=== PATIENT | female | born 1940 | race Caucasian/White ===

== ENCOUNTER 2016-12-27 17:21 | Inpatient (IN) | payer MEDICARE, OTHER ==
[2016-12-27] MEDS ORDERED: SODIUM CHLORIDE 0.9% 1000ML 500 ML IVS ONE (17:43)
[2016-12-27] MEDS ORDERED: HYDROmorphone HCL INJ 2 MG/ML VIAL IV ONE (17:43)
[2016-12-27] MEDS ORDERED: ONDANSETRON ODT 8 MG TAB SL ONE (17:43)
[2016-12-27] MEDS ORDERED: MAGNESIUM SULFATE PREMIX 2GM 2 GM in PREMIX BAG 1 BAG IVPB ONE (18:20)
--- NOTE | 2016-12-27 18:37 | RAD ---
EXAM DESCRIPTION: Abdomen Series CLINICAL HISTORY: abd pain COMPARISON: Chest radiograph June 11, 2010 FINDINGS: Frontal view of the chest and supine and upright images of the abdomen were submitted. Cardiac silhouette is within normal limits. Mediastinal contour is unchanged. There is no focal parenchymal or pleural disease. Aorta is tortuous. There is atherosclerosis. There is no free air in the abdomen. There is no evidence of bowel obstruction. IMPRESSION: No acute abnormalities. Electronically signed by: Estuardo Vasques MD 12/27/2016 6:36 PM CDT
[2016-12-27] MEDS ORDERED: MAGNESIUM SULFATE PREMIX 2GM 50 ML IVPB ONE (19:00)
[2016-12-27] MEDS ORDERED: PIPERACILLIN/TAZOBACTAM 3.375 GM in SODIUM CHLORIDE 0.9% 100ML 100 ML IVPB ONE (19:19)
[2016-12-27] MEDS ORDERED: PIPERACILLIN/TAZOBACTAM 3.375 GM VIAL IVPB ONE (19:49)
[2016-12-27] MEDS ORDERED: SODIUM CHLORIDE 0.9% 100ML 100 ML IVPB ONE (19:49)
--- NOTE | 2016-12-27 19:57 | CT ---
EXAM: Abdomen/Pelvis w/Contrast CLINICAL INDICATION: 76-year-old female with RIGHT lower quadrant pain and leukocytosis. COMPARISON: None. EXAMINATION: CT of the abdomen and pelvis was performed following intravenous administration of contrast. Oral contrast was not administered. Multiplanar reformatted images were provided. This exam was performed according to our departmental dose optimization program which includes use of automated exposure control, adjustment of the mA and/or kV according to patient size and/or use of iterative reconstruction technique. FINDINGS: Examination findings are limited by dense air artifact and extensive motion through the mid abdomen. Chest: Evaluation through the lung bases reveals no focal opacity, pleural effusion or pneumothorax. Heart size is within normal limits. No pericardial effusion. Abdomen and pelvis: The liver, gallbladder, pancreas, spleen, bilateral kidneys and bilateral adrenal glands are within normal limits. Large calculus present within the gallbladder compatible with cholelithiasis. The vessels reveal atherosclerotic calcification otherwise patent. Aortic infrarenal aneurysm measuring 3.6 cm, (series 2, image 41). No abdominopelvic lymph nodes are noted to be pathologically enlarged by CT measurement criteria. The bowel is within normal limits with fecal debris present throughout the large bowel. There is no abnormal bowel wall thickness or bowel dilation. No free air. No free abdominopelvic fluid collections. The appendix is identified arising medially from the cecum, coursing cephalad with tip terminating at the level of the gallbladder fossa extensive stranding surrounds the appendix compatible with phlegmon without clearly defined organizing fluid collection to suggest abscess. Several foci of air lucency are present at the level of the appendix tip raising the concern for small focal perforation, however this area is poorly visualized secondary to severe motion artifact. The osseous structures reveal degenerative change. IMPRESSION: 1. Findings compatible with acute appendicitis with extensive surrounding phlegmon as detailed above. No free intra-abdominal air, however air lucency is identified at the level of the tip of the appendix, poorly visualized secondary to severe motion artifact through this region for which focal perforation is suspected. 2. Large calculus within the gallbladder compatible with cholelithiasis. 3. Infrarenal aortic aneurysm measuring 3.6 cm. Best practice guidelines recommend follow-up evaluation every year. AAA Size: Follow-up Recommendation : 2.6-2.9 cm Every 5 years 3.0-3.4 cm Every 3 years 3.5-3.9 cm Every 1 year 4.0-4.4 cm Every 1 year, vascular consultation recommended 4.5-5.4 cm Every 6 months, vascular consultation recommended >5.5 cm Vascular surgery consultation recommended 1. J Vasc Surg. 2008;50(4 Suppl):S2-49 2. For aortas with maximum diameter of 2.6-2.9 cm meeting the criteria for AAA (>50% of proximal normal segment) Electronically signed by: Yudith Soriano MD 12/27/2016 7:55 PM CDT Workstation: [id number]
--- NOTE | 2016-12-27 20:59 | ED.PDOC ---
History of Present Illness - General Chief Complaint: Abdominal Pain Stated Complaint: abdominal pain Time Seen by Provider: 12/27/16 17:23 Source: patient Exam Limitations: no limitations - History of Present Illness Initial Comments: the patient is a 76-year-old female presenting to the emergency room secondary to symptoms primarily of abdominal pain. She has had some nausea and some mild diarrhea. The pain has increased which is the primary reason she is here. She is uncertain if she has had fevers. She reports she still has her appendix and her gallbladder. No syncope or near syncope. She does have COPD and does wear her oxygen at night. She does work at a job and does not wear the oxygen down. Her lungs have been doing good for her. She does not know of any significant cardiac history. Timing/Duration: other - 3 days Severity: moderate Improving Factors: immobilization Worsening Factors: eating, movement Associated Symptoms: loss of appetite, malaise, nausea/vomiting Allergies/Adverse Reactions: Allergies Codeine Allergy (Unknown, Verified 12/27/16 17:47) Home Medications: Ambulatory Orders Albuterol Sulfate Nebs [Proventil Nebs] 2.5 mg INH QID 02/29/16 Centrum Silver 1 ea PO DAILY 02/29/16 Dulera 100-5 Mcg/Act 2 puff INH BID 02/29/16 Furosemide Tab [Lasix Tab] 1 dose PO BID 02/29/16 Potassium Chloride [Micro-K] 10 meq PO BID 02/29/16 Proair Hfa 1 - 2 puff INH .Q4-6H 02/29/16 Tiotropium Southmayd Monohydrate [Spiriva Handihaler] 1 puff INH DAILY 02/29/16 Ciprofloxacin [Cipro] 500 mg PO BID #14 tab 03/03/16 predniSONE [Prednisone] 10 mg PO QAM #20 tab 03/03/16 Review of Systems - Review of Systems Constitutional: States: malaise EENTM: States: no symptoms reported Respiratory: States: no symptoms reported Cardiology: States: no symptoms reported Gastrointestinal/Abdominal: States: abdominal pain, diarrhea, nausea, vomiting Genitourinary: States: no symptoms reported Musculoskeletal: States: no symptoms reported Skin: States: no symptoms reported Neurological: States: no symptoms reported Endocrine: States: excessive sweating All other Systems: No Change from Baseline Past Medical History (General) - Patient Medical History Hx Seizures: No Hx Stroke: No Hx Asthma: No Hx of COPD: Yes Hx Congestive Heart Failure: No Hx Pacemaker: No Hx Hypertension: No Hx Diabetes: No Hx MRSA: No Surgical History: other - Vaccination History Hx Influenza Vaccination: Yes Hx Pneumococcal Vaccination: Yes - Social History Hx Tobacco Use: No Hx Alcohol Use: No Hx Substance Use: No Hx Substance Use Treatment: No Hx Physical Abuse: No Hx Emotional Abuse: No - Activities of Daily Living Hospice Agency (if applicable):: None - Female History Patient is a Female of Child Bearing Age (10 -59 yrs old): No Patient : No Family Medical History - Family History Mother Living Status: Age at (years of age): 86 Cause of : old age Hx Family Asthma: No Hx Family Congestive Heart Failure: No Hx Family Hypertension: Yes Hx Family Stroke: No Hx Cardiac Disease: No Hx Family Diabetes: No Hx Family Cancer: Yes - Breast cancer Father Living Status: Age at (years of age): 80 Cause of : Cancer Hx Family Asthma: No Hx Family Congestive Heart Failure: No Hx Family Hypertension: No Hx Family Stroke: No Hx Cardiac Disease: No Hx Family Diabetes: No Hx Family Cancer: Yes - Lung Cancer Physical Exam - Physical Exam General Appearance: Alert, No apparent distress Eye Exam: bilateral normal Ears, Nose, Throat: hearing grossly normal, normal ENT inspection, normal pharynx Neck: full range of motion, supple Respiratory: chest non-tender, no respiratory distress, no accessory muscle use , other - the patient does have some chronic dry rales and some decreased air movement chronically. No wheezes. No respiratory distress. Cardiovascular/Chest: normal peripheral pulses, regular rate, rhythm, no edema Peripheral Pulses: radial,right: 2+, radial,left: 2+, dorsalis pedis,right: 2+, dorsalis pedis,left: 2+, posterior tibialis,right: 2+, posterior tibialis,left: 2+ Gastrointestinal/Abdominal: other - the patient hasmild diffuse discomfort palpation and significant right-sided abdominal pain to palpation. There does appear to be somesignificant guarding present. The patient is obese. 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 The patient did receive a dose of Dilaudid for the pain and is somewhat drowsy from it currently. She appears to be at baseline from her standpoint of her COPD. Her EKG appears to be baseline as well with a long-standing right bundle branch block. Chest x- ray appears reassuring. The patient has received a dose of IV Zosyn. Cultures have been performed. General surgery and internal medicine have been contacted. The patient is to be nothing by mouth. - Results/Orders Results/Orders: Laboratory Last Values WBC 15.5 K/mm3 (4.8-10.8) H 12/27/16 17:40 RBC 4.73 M/mm3 (4.20-5.40) 12/27/16 17:40 Hgb 13.9 gm/dL (12.0-16.0) 12/27/16 17:40 Hct 42.1 % (36.0-47.0) 12/27/16 17:40 MCV 89.0 fl (81.0-99.0) 12/27/16 17:40 MCH 29.5 pg (27.0-31.0) 12/27/16 17:40 MCHC 33.1 g/dL (33.0-37.0) 12/27/16 17:40 RDW 13.1 % (11.5-14.5) 12/27/16 17:40 Plt Count 231 K/mm3 (130-400) 12/27/16 17:40 MPV 8.3 fl (7.40-10.4) 12/27/16 17:40 Absolute Neuts (auto) 13.40 K/uL (1.8-6.8) H 12/27/16 17:40 Absolute Lymphs (auto) 1.20 K/uL (1.0-3.4) 12/27/16 17:40 Absolute Monos (auto) 0.90 K/uL (0.2-0.8) H 12/27/16 17:40 Absolute Eos (auto) 0.00 K/uL (0.0-0.4) 12/27/16 17:40 Absolute Basos (auto) 0.00 K/uL (0.0-0.1) 12/27/16 17:40 Neutrophils % 86.6 % (42.0-78.0) H 12/27/16 17:40 Lymphocytes % 7.7 % (20.0-50.0) L 12/27/16 17:40 Monocytes % 5.5 % (2.0-9.0) 12/27/16 17:40 Eosinophils % 0.1 % (1.0-5.0) L 12/27/16 17:40 Basophils % 0.1 % (0.0-2.0) 12/27/16 17:40 PT 12.7 SECONDS (9.4-12.5) H 12/27/16 17:40 INR 1.130 12/27/16 17:40 PTT (SP) 30.4 SECONDS (25.1-36.5) 12/27/16 17:40 Sodium 136 mmol/L (135-145) 12/27/16 17:40 Potassium 3.6 mmol/L (3.6-5.0) 12/27/16 17:40 Chloride 97 mmol/L (101-111) L 12/27/16 17:40 Carbon Dioxide 30 mmol/L (21-31) 12/27/16 17:40 Anion Gap 12.6 (12-18) 12/27/16 17:40 BUN 12 mg/dL (7-18) 12/27/16 17:40 Creatinine 0.89 mg/dL (0.6-1.3) 12/27/16 17:40 BUN/Creatinine Ratio 13.5 (10-20) 12/27/16 17:40 Random Glucose 125 mg/dL (70-105) H 12/27/16 17:40 Serum Osmolality 273.2 mOsm/L (275-295) L 12/27/16 17:40 Calcium 9.2 mg/dL (8.4-10.2) 12/27/16 17:40 Magnesium 1.7 mg/dL (1.8-2.5) L 12/27/16 17:40 Total Bilirubin 1.7 mg/dL (0.2-1.0) H 12/27/16 17:40 AST 14 IU/L (10-42) 12/27/16 17:40 ALT 13 IU/L (10-60) 12/27/16 17:40 Alkaline Phosphatase 71 IU/L (42-121) 12/27/16 17:40 Creatine Kinase 45 IU/L (26-140) 12/27/16 17:40 CK-MB (CK-2) 1.7 ng/mL (0.0-4.4) 12/27/16 17:40 CK-MB (CK-2) % Not Reportable 12/27/16:40 Troponin I < 0.02 ng/mL (0.01-0.05) 12/27/16 17:40 B-Natriuretic Peptide 168.0 pg/ml (0-100) H 12/27/16 17:40 Serum Total Protein 7.1 gm/dL (6.4-8.2) 12/27/16 17:40 Albumin 3.8 g/dl (3.2-5.5) 12/27/16 17:40 Globulin 3.3 gm/dL (2.3-3.5) 12/27/16 17:40 Albumin/Globulin Ratio 1.2 (1.1-1.9) 12/27/16 17:40 Amylase 37 U/L (28-100) 12/27/16 17:40 Lipase 31 U/L (22-51) 12/27/16 17:40 bowel gas pattern is normal on the abdominal x-ray. No definite free air. Chest x-ray appears to be at patient's baseline. No evidence of fluid overload or pneumonia. Chronic changes of COPD are noted. CT scan of abdomen and pelvis shows a significant gallstone in the gallbladder additionally the patient does haveappendicitis with a surrounding phlegmon but no definite abscess. There could possibly be a small focal perforation at the tip of the gallbladder. Departure - Departure Clinical Impression: Appendicitis, acute, with peritonitis Disposition: Admit Patient Referrals: Shyam Leroy MD [Primary Care Provider] - 1-2 Weeks Home Medications: Ambulatory Orders Albuterol Sulfate Nebs [Proventil Nebs] 2.5 mg INH QID 02/29/16 Centrum Silver 1 ea PO DAILY 02/29/16 Dulera 100-5 Mcg/Act 2 puff INH BID 02/29/16 Furosemide Tab [Lasix Tab] 1 dose PO BID 02/29/16 Potassium Chloride [Micro-K] 10 meq PO BID 02/29/16 Proair Hfa 1 - 2 puff INH .Q4-6H 02/29/16 Tiotropium [place]mayd Monohydrate [Spiriva Handihaler] 1 puff INH DAILY 02/29/16 Ciprofloxacin [Cipro] 500 mg PO BID #14 tab 03/03/16 predniSONE [Prednisone] 10 mg PO QAM #20 tab 03/03/16 Decision To Admit - Decistion To Admit Decision to Admit Reason: Medical Nature Decision to Admit Date: 12/27/16 Decision to Admit Time: 21:03
[2016-12-27] MEDS ORDERED: ATROPINE SULFATE 0.4 MG/ML 1ML VIAL IV ONE (21:00)
[2016-12-27] MEDS ORDERED: PROPOFOL 200 MG/20 ML VIAL IV ONE (21:00)
[2016-12-27] MEDS ORDERED: NEOSTIGMINE METHYLSULFATE 1 MG/ML ML IV ONE (21:00)
[2016-12-27] MEDS ORDERED: metroNIDAZOLE IV PREMIX 500MG 500 MG in PREMIX BAG 1 BAG IVPB ONE (21:09)
[2016-12-27] MEDS ORDERED: BUPIVACAINE 0.25% W/EPI 50 ML VIAL INJ ONE (21:40)
[2016-12-27] MEDS ORDERED: ROCURONIUM BROMIDE 10 MG/ML VIAL ONE (21:55)
[2016-12-27] MEDS ORDERED: fentaNYL CITRATE INJ 50 MCG/ML AMP ONE (21:55)
[2016-12-27] MEDS ORDERED: LACTATED RINGERS 1,000 ML ONE (21:55)
--- NOTE | 2016-12-27 22:06 | CONS ---
HISTORY OF PRESENT ILLNESS: The patient is a 76 year-old female who was seen in the Emergency Room with at least a 24 hour history of abdominal pain which has moved to the right side with anorexia. She has not had an episode of like-illness in the past. No history of hepatitis, jaundice or fatty food intolerance. No dysuria, no productive cough. Her last bowel movement was yesterday and was small but within normal limits. PAST MEDICAL HISTORY: 1. . 2. Chronic obstructive pulmonary disease. 3. Abnormal EKG which is unchanged from previous. CURRENT MEDICATIONS: Listed in the nursing record. ALLERGIES: CODEINE. FAMILY HISTORY: Noncontributory. SOCIAL HISTORY: The patient is , quit smoking, does not drink, does not use drugs. She is retired. REVIEW OF SYSTEMS: Negative except as in the history of present illness. PHYSICAL EXAMINATION: VITAL SIGNS: Afebrile, normotensive. GENERAL: The patient is awake, alert when awakened. She is in mild distress. HEENT: Sclera nonicteric. Mucous membranes are moist. NECK: Without adenopathy. CHEST: She has equal breath sounds bilaterally without wheezing but they are distant, HEART: Regular rhythm. ABDOMEN: Soft. There is tenderness in the right mid abdomen and right lower quadrant. Bowel sounds are positive but decreased. PELVIC/RECTAL: Examinations deferred. EXTREMITIES: Without cyanosis, clubbing, or edema. EKG reveals a right bundle branch block which has been compared to a previous one and within normal limits. LABORATORY: Her creatinine is 0.89, potassium 3.6, bilirubin 1.7. Other liver functions within normal limits. CK is 45, MB 1.9. Troponin is 0.02. BNP is 168. Amylase and lipase both within normal limits. PT is slightly prolonged at 12.7 with INR of 1.13. White count 15,000, hemoglobin 13.3. She has 86% neutrophils and 231,000 platelets. Urine is not back at this time. Chest x-ray is clear. IMPRESSION: 1. Right lower quadrant abdominal pain, leukocytosis, abnormal CT scan consistent with appendicitis with at least micro perforation. 2. History of chronic obstructive pulmonary disease. 3. Mildly elevated BNP. The risks, benefits, and alternatives to laparoscopy and possible open appendectomy and indicated procedures are discussed with the patient and her family. She has had questions answered. She wishes to proceed. She has been given IV Zosyn and Mefoxin and will proceed with surgery when the surgery crew is available. #[id number] [facility]
--- NOTE | 2016-12-27 22:20 | HP ---
SUPERVISING PHYSICIAN: Phillip Tracy M.D. CHIEF COMPLAINT: Right lower quadrant abdominal pain. HISTORY OF PRESENT ILLNESS: Ms. Bnonie Saeed is a 76 year-old female patient that presented to the Emergency Room today complaining of abdominal pain. She noted she had had some mild nausea and some mild diarrhea. Apparently the pain had started on Wednesday and worsened throughout the day. She denied any fevers. She noted that the pain was primarily down in her lower right quadrant. Laboratory studies in the Emergency Department showed she had a leukocytosis of 15,500 with a left shift. Coagulation studies showed she just had a slightly elevated PT of 12.7, PTT was normal. Chemistries showed electrolytes to be normal with magnesium 1.7. Bilirubin was slightly elevated at 1.7. Troponins showed to be less than 0.02. BNP was 168. Radiographic studies were completed that included initially an abdominal x-ray and per radiology interpretation there were no acute abnormalities noted. This was followed-up with an abdominal/pelvic CT with contrast and per radiology interpretation there were findings compatible with acute appendicitis with extensive surrounding phlegmon but no intraabdominal air was identified. There was a air lucency identified at the level of the tip of the appendix which was poorly visualized secondary to motion artifact through this region for which focal perforation is suspected. Also of note was a large calculous within the gallbladder compatible with cholelithiasis. Also on CT was noted she had infrarenal aortic aneurysm measuring 3.[address] George was consulted in the Emergency Department given the CT findings and leukocytosis, and the patient's symptomology. Dr. George requested the patient be admitted and cleared for surgery for concerns of acute appendicitis with a possible perforation. The patient was seen in the Emergency Department and at time of examination was stable. She has a history of chronic obstructive pulmonary disease, only wears oxygen at night. No other significant medical history was noted. Her previous admission to the hospital at [place] was in February of 2016 for an exacerbation of chronic obstructive pulmonary disease. The patient is now going to be admitted to the Medical/Surgical floor for acute appendicitis with surgery planned for tonight. The patient was in stable condition at time of examination in the E. R. PAST MEDICAL HISTORY: 1. Chronic obstructive pulmonary disease. 2. Congestive heart failure, however last echocardiogram noted to be 2004 showed she had an ejection fraction of 75% with a normal systolic function. 3. Past tobacco abuse currently using E-cigarettes. PAST SURGICAL HISTORY: 1. section. 2. Bilateral tubal ligation. HOME MEDICATIONS: Please refer to the electronic medical records for an updated list of medications listed at time of admission that have been verified and review of the patient's home medications from the clinic show she is on: 1. Albuterol nebulizer as directed p.r.n. 2. Dulera 100 mcg per 5 mcg oral inhaled 2 puffs twice daily. 3. Spiriva handheld inhaler 18 mcg 1 capsule daily. 4. ProAir inhaler 1 to 2 puffs as needed every 4 to 6 hours. 5. Lasix 40 mg twice daily. 6. Potassium chloride 10 mEq extended release twice daily. 7. Centrum Silver daily. ALLERGIES: CODEINE. FAMILY HISTORY: The patient's mother is from Alzheimer's dementia at age 85. Also had a history of chronic obstructive pulmonary disease. Father at age 70 from lung cancer. She has no siblings. SOCIAL HISTORY: The patient has smoked approximately 1-1/2 to 2 packs per day approximately 45 years having quit tobacco 6 years previously. She currently does use an E-cigarette. She denies any history of alcohol abuse. 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 She has been 6 times and is currently and lives in [place]. REVIEW OF SYSTEMS: Denies any fever or chills but notes she has had some general malaise. No unintentional weight gain or weight loss. HEENT: Denies any change in vision. She is [id number], wears hearing aids. She denies any nasal congestion. CARDIOVASCULAR: Denies any chest pains or palpitations, syncopal episodes or near syncopal episodes. RESPIRATORY: Denies any cough, shortness of breath, wheezing. GASTROINTESTINAL: As noted in the History of Present Illness, right lower abdominal pain with some mentioned diarrhea, nausea and vomiting. GENITOURINARY: Denies any dysuria, hematuria or increased frequency or other urinary symptoms. NEUROLOGIC: Denies any headaches, numbness or any paresthesias. PHYSICAL EXAMINATION: VITAL SIGNS: Temperature 99.6, pulse 96, initial blood pressure 158/110. She was showing saturations 96% on room air. After pain medications, her blood pressure improved to 127/61, respirations were at 18. She is satting 91 to 93 on nasal cannula at rest with 3 liters. Admission weight 80.7 kg. GENERAL: On examination in the Emergency Department, the patient is alert and in no apparent distress, quite comfortable after pain medication administration. HEENT: Tympanic membranes are clear bilaterally. Oropharynx was pink and moist without any lesions. NECK: Supple, non-tender with full range of motion. No jugular venous distention noted. CHEST: Lungs were clear to auscultation, just slightly diminished towards the bases. No wheezing, rhonchi or rales were noted. CARDIOVASCULAR: Heart was regular rate and rhythm without appreciable murmurs, gallops, or rubs. ABDOMEN: Diffusely tender on palpation more noted on the right side with some guarding. Bowel sounds were hypoactive. EXTREMITIES: No clubbing, cyanosis or edema. NEUROLOGIC: She was alert and oriented times three. Cranial nerves II-XII are grossly intact. Facial features are symmetrical. Extraocular movements are within normal limits. There is no noted nystagmus. There was no noted neurologic sensory or motor deficits. LABORATORY: White count on admission was 15.5, hemoglobin 13.9, hematocrit 42.1. She did have a differential showing a left shift. Coagulation studies showed a slightly elevated PT of 12.7, INR was 1.13, PTT 30.4. Chemistries showed normal electrolytes with potassium 3.6, BUN 12, creatinine 0.89, glucose 125, calcium 9.2, magnesium was slightly low at 1.5. Bilirubin was slightly elevated at 1.7. All other liver functions showed to be within normal limits. Cardiac enzymes showed normal troponin at less than 0.02. BNP was slightly elevated at 168. RADIOLOGY: Normal x-ray in the Emergency Department and per radiology interpretation there was no abnormalities identified. This was followed-up with an abdominal CT pelvis with contrast and per radiology interpretation there was note of findings compatible with acute appendicitis with extensive surrounding phlegmon with concerns for a focal perforation. Also of note was a large calculous within the gallbladder compatible with cholelithiasis as well as infrarenal aortic aneurysm measuring 3.6 cm. ASSESSMENT: 1. Acute appendicitis with leukocytosis as well as noted on CT findings with concerns for focal perforation. 2. Leukocytosis secondary to number 1. 3. Chronic obstructive pulmonary disease without any signs or symptoms of exacerbation. 4. History of tobacco abuse with currently using E-cigarettes. 5. Hypertension by history. 6. Obesity with a body mass index of 32.6. PLAN: The patient is going to be admitted in anticipation of surgery for acute appendicitis. Dr. George has been consulted and seen the patient in the Emergency Room. The patient was started on antibiotics in the Emergency Room that included Flagyl and Zosyn. She was also given 2 grams of magnesium and pain medicine with Dilaudid. Will plan to follow the patient during recovery phase along with Dr. George and see the patient postoperatively. The patient is O2 dependent at night only. Will utilize O2 as needed postoperatively and anticipate length of stay to be at least 2 to 3 days, possibly longer depending on clinical progression. She certainly will need to be on antibiotics for concerns for the perforation and ongoing leukocytosis. Will the patient medically along with Dr. George. Until discharge, continue to monitor and treat appropriately. #[id number] [facility]
[2016-12-28] MEDS ORDERED: ONDANSETRON INJ 4 MG/2 ML VIAL IV PRN (00:58)
[2016-12-28] MEDS ORDERED: PANTOPRAZOLE SODIUM IV 40 MG VIAL IV SCH (01:00)
[2016-12-28] MEDS ORDERED: LEVALBUTEROL NEBS 1.25 MG/3 ML VIAL NEB ONE (01:05)
[2016-12-28] MEDS ORDERED: ALBUTEROL SULFATE 2.5 MG/3 ML VIAL NEB PRN (01:08)
[2016-12-28] MEDS ORDERED: KCL 20MEQ/0.45% NS 1,000 ML IVS PRN ×2 (01:15→08:18)
--- NOTE | 2016-12-28 01:19 | PCM.CORE ---
Physician DVT/VTE - Nurse DVT Assessment & Total Each Risk Factor Represents 3 Points: Age over 75 years, Medical PT with Hx of OR, CHF, Severe infection/sepsis Each Risk Factor Represents 2 Points: Major Surgery >45 minutes Each Risk Factor Represents 1 Point: Hx of smoking past year DVT Assessment Score: 9 - 5 or more Very High Risk Treatments: Early Ambulation *, Sequential Compression Device Pharmacological: Enoxaparin 40mg SQ Daily
[2016-12-28] MEDS ORDERED: PIPERACILLIN/TAZOBACTAM 3.375 GM in SODIUM CHLORIDE 0.9% 100ML 100 ML IVPB SCH (01:30)
[2016-12-28] MEDS: HYDROmorphone HCL INJ 2 MG/ML VIAL IV PRN ×4 (03:00→22:49)
[2016-12-28] MEDS ORDERED: PIPERACILLIN/TAZOBACTAM 3.375 GM VIAL IVPB ONE (03:23)
[2016-12-28] MEDS ORDERED: SODIUM CHLORIDE 0.9% 100ML 100 ML IVPB ONE (03:24)
[2016-12-28] MEDS ORDERED: KCL 20MEQ/0.45% NS 1,000 ML IVS ONE (03:30)
[2016-12-28] MEDS: PIPERACILLIN/TAZOBACTAM 3.375 GM in SODIUM CHLORIDE 0.9% 100ML 100 ML IVPB SCH ×2 (03:39→19:32)
[2016-12-28] MEDS ORDERED: metroNIDAZOLE IV PREMIX 500MG 100 ML IVPB ONE ×3 (04:31→20:11)
[2016-12-28] MEDS: metroNIDAZOLE IV PREMIX 500MG 500 MG in PREMIX BAG 1 BAG IVPB SCH ×3 (04:36→20:17)
--- NOTE | 2016-12-28 09:09 | OP ---
DATE OF PROCEDURE: 12/28/16 PREOPERATIVE DIAGNOSIS: 1. Elevated white blood cell count. 2. Right lower quadrant abdominal pain. 3. Abnormal CT scan suspicious for appendicitis. POSTOPERATIVE DIAGNOSIS: 1. Elevated white blood cell count. 2. Right lower quadrant abdominal pain. 3. Abnormal CT scan suspicious for appendicitis. 4. Acute gangrenous perforated retrocecal appendix. PROCEDURE: 1. Laparoscopy, then open appendectomy. SURGEON: Des George MD. CERTIFIER: None. ANESTHESIA: General endotracheal anesthesia and local infiltration of 0.25% Marcaine with epinephrine. INDICATION: The patient is a 76-year-old female with somewhere between a 24+ hour history of abdominal pain, anorexia, no temperature, no nausea, vomiting, no previous episodes of like illness. She was found to have a white count of 15 ,[address] can revealed an appendix that seemed to be retrocecal with a question of perforation of the tip. She as brought to the Surgical Suite for laparoscopy and appendectomy after the risks, benefits and alternatives to the procedure were discussed and accepted and the patient had received IV Zosyn and Flagyl in the Emergency Room. FINDINGS: The base of the appendix was viable and it was transected using the stapler. The remaining of the appendix was essentially , retrocecal and there was no obvious abscess cavity. PROCEDURE: After adequate general endotracheal anesthesia was obtained, a Desai catheter was placed. The abdomen was prepped and draped in the usual sterile manner. At this time, a surgical time-out was taken. The supraumbilical area was infiltrated with local anesthesia. A vertical incision was made above the umbilicus, first with infiltration of anesthesia and then with a sharp knife. Dissection was carried down through the skin and subcutaneous tissue to the midline fascia. Traction sutures were placed on either side of the midline. A small incision was made in the midline fascia. The peritoneum was opened bluntly. Aden trocar was introduced under direct vision into the abdominal cavity and fixed in place with a 20 mL balloon. CO2 was then insufflated until a pressure of 12 mmHg was reached and the abdomen was tympanitic in all four quadrants. When this was done, the laparoscope was introduced and the abdomen was inspected with the previously noted findings. The patient was then placed in the Trendelenburg position. A suprapubic port was placed under direct vision in the usual manner in the usual manner. The right lower quadrant was explored and the base of the appendix was identified. At this point, the left lower quadrant port was placed under direct vision. The base of appendix was identified, elevated and attempts to dissect the remaining appendix with blunt dissection using the dissectors was not done. Therefore, the base of the appendix was divided using the Endo-MARK with a vascular staple after the mesoappendix at the base was divided using blunt dissection. Again, the base of the appendix was grasped and attempts to dissect the remaining appendix free bluntly with the graspers was unable to be done. A portion of the appendix, approximately 1.5 cm of the most proximal appendix came off and was removed through the left lower quadrant port side. At this point, it was decided to open. The left lower quadrant port fascia was closed with interrupted 0 Vicryl simple sutures placed using the Endoclose divide and the supraumbilical port fascia was closed with a single figure-of- eight suture of 0 Vicryl. When these were tightened and tied, the suprapubic port was left in place. After the new instruments were pulled and counted, a vertical incision was made just below the umbilicus in the right lower quadrant. Dissection was carried down through the skin to the fascia using blunt dissection and electrocautery. The fascia was score and a muscle splitting incision was made. When this was done, the next layer was likewise divided. Finally, the peritoneum was divided with sharp scissors and the peritoneum was divided with fingers and retractors were placed. The right lower quadrant was explored. The base of the appendix was inspected and it was in fine shape. Attempts to bring up the ileocecal portion of the colon and ileum were unsuccessful due to the size of the incision , so eventually the incision was lengthened medially including dividing approximately the lateral third of the rectus muscle. When this was done, as noted, the ileum and cecum were brought into the surgical field. Blunt dissection along the medial aspect of the right colon mesentery eventually identified the appendix. It was dissected free. First, there was purulent drainage which was aspirated and irrigated and finally the appendix was elevated and removed using electrocautery. The specimen was sent for pathologic evaluation. This area was then irrigated copiously with saline as was the right lower quadrant. A 10 mm flat ALENA drain was introduced into this area and brought out through the suprapubic port and sutured in place with a 3- 0 Nylon ligature. We then irrigated the wound through the incision and aspirated with the ALENA drain and placed to grenade drainage. The right lower quadrant incision was closed in layers with the peritoneum closed with a running 3-0 Vicryl and the muscle closed with a running 0 Prolene suture that was run from medially and laterally and tied centrally. When this was done and we irrigated each layer coming out, the Patricio's fascia was then loosely approximated with interrupted 2-0 Vicryl sutures. The skin edges were loosely approximated on all incisions with skin stapler. Sterile dressings were applied. An abdominal binder was applied and the patient was awakened and taken to the Recovery Room in stable condition. Estimated blood loss was 150 to 200 mL. All sponge, needle and instrument counts were correct. #[id number] [facility]
[2016-12-28] MEDS: IPRATROPIUM/ALBUTEROL 3 ML VIAL NEB SCH ×4 (09:45→20:10)
[2016-12-28] MEDS ORDERED: SODIUM CHLORIDE 0.9% 50ML 0 ML ONE (10:32)
[2016-12-28] MEDS ORDERED: PIPERACILLIN/TAZOBACTAM 2.25 GM VIAL IVPB ONE ×4 (10:32→21:40)
--- NOTE | 2016-12-28 10:40 | RAD ---
EXAM DESCRIPTION: Chest,1 View CLINICAL HISTORY: Postoperative COMPARISON: February 29, 2016 IMPRESSION: Single portable upright frontal view of the chest. Cardiomediastinal silhouette and pulmonary vascularity are within normal limits. Linear band of opacities in the left upper lobe and bilateral lung bases are likely due to atelectasis versus chronic interstitial changes. Infiltrates cannot be entirely excluded. Bilateral costophrenic angles are sharp. No pneumothorax. Included upper abdomen shows no evidence of free air under the diaphragm. Electronically signed by: Dickson Ni MD 12/28/2016 10:38 AM CDT
[2016-12-28] MEDS: PIPERACILLIN/TAZOBACTAM 2.25 GM in SODIUM CHLORIDE 0.9% 50ML 50 ML IVPB SCH ×4 (10:47→22:15)
[2016-12-28] MEDS ORDERED: FUROSEMIDE INJ 20 MG/2 ML VIAL IV ONE (11:01)
[2016-12-28] MEDS ORDERED: FUROSEMIDE INJ 20 MG/2 ML VIAL ONE (11:05)
[2016-12-28] MEDS: ENOXAPARIN SODIUM 40 MG/0.4 ML SYG SUBCU SCH (13:22)
--- NOTE | 2016-12-28 13:24 | PN ---
DATE: 12/28/16 SUBJECTIVE: The patient is noticeably confused. She is now immediate postoperative appendix removal performed earlier this morning by Dr. George, general surgery. She tolerated the procedure quite well. Her blood pressure was a little bit low later in the morning and she had decreased urine output which we hope will be remedied by some fluid supplementation. The patient was subjected dehydrated before the procedure and will require some fluid supplementation to help stabilize the situation. She otherwise lives at home with her . Her mouth is very dry and she will be given some ice chips and some ora hygiene. The family is attentive in helping to assist and watch over her during this recovery time. OBJECTIVE: VITAL SIGNS: Blood pressure earlier this morning was 89/55. Pulse 92. Blood pressure immediately after surgery was down to 73/45. She is requiring some BiPAP and has now advanced to a mask and her oxygenation has stabilized. She has had decreased urine output since surgery, but we trust that this will be assisted by some fluid supplementation currently being received by the patient. LUNGS: Clear. HEART: Regular. RADIOLOGY: Chest x-ray shows some bibasilar chronic interstitial changes. LABORATORY: White count 20,600 with 92% neutrophils noted after surgery. Hemoglobin stable at 13.5. Osmolality is up to 275 while BUN has gone from 12 to 19, creatinine 0.89 up to 1.64. Potassium 4.1. Calcium 8.3. MICROBIOLOGY: Blood cultures are pending. ASSESSMENT: 1. Acute abdominal pain. 2. Immediately postoperative day 0 open appendectomy requiring extensive lavage and exploration for appendiceal removal. 3. Chronic obstructive pulmonary disease. 4. History of congestive heart failure with last echocardiogram in 2004 with an ejection fraction of 75% with undetermined etiology. 5. Chronic tobacco use, now using E-cigarettes or vapor. 6. History of hypotension postoperatively. 7. Relative oliguria with close followup with fluid supplementation. 8. Mild obesity with body mass index of 32. 9. Leukocytosis, probably secondary to the acute appendicitis. PLAN: We will continue with fluid supplementation after initial bolus of 1 liter as well as Lasix 10 mg IV. Reevaluate urine output after about 4 to 5 hours and consider additional bolus if IV fluids if required. The patient is examined by Dr. George as well. Drainage through the bulb drains continuing. Continue with ice chips and close observation of urine output and vital signs. [facility][id number] [facility]
[2016-12-28] MEDS ORDERED: SODIUM CHLORIDE 0.9% 1000ML 1,000 ML IVS ONE (15:56)
[2016-12-28] MEDS ORDERED: SODIUM CHLORIDE 0.9% 50ML 50 ML ONE ×3 (17:22→21:40)
[2016-12-28] MEDS ORDERED: SODIUM CHLORIDE 0.9% 500ML 500 ML IVS ONE (21:20)
[2016-12-28] MEDS ORDERED: SODIUM CHLORIDE 0.9% 1000ML 1,000 ML IVS PRN (22:28)
[2016-12-29] MEDS: HYDROmorphone HCL INJ 2 MG/ML VIAL IV PRN ×3 (02:26→20:47)
[2016-12-29] MEDS ORDERED: metroNIDAZOLE IV PREMIX 500MG 100 ML IVPB ONE ×3 (04:01→19:32)
[2016-12-29] MEDS: metroNIDAZOLE IV PREMIX 500MG 500 MG in PREMIX BAG 1 BAG IVPB SCH ×3 (04:09→19:43)
[2016-12-29] MEDS ORDERED: PANTOPRAZOLE SODIUM IV 40 MG VIAL ONE (04:48)
[2016-12-29] MEDS ORDERED: PIPERACILLIN/TAZOBACTAM 2.25 GM VIAL IVPB ONE ×3 (04:49→19:40)
[2016-12-29] MEDS ORDERED: SODIUM CHLORIDE 0.9% 50ML 50 ML ONE ×2 (04:49→19:40)
[2016-12-29] MEDS ORDERED: SODIUM CHLORIDE 0.9% 250ML 250 ML IVS ONE (05:11)
--- NOTE | 2016-12-29 05:45 | RAD ---
Procedure: XR CHEST 1 VIEW Exam Date: 12/29/2016 Ordering Provider: NOAH VELÁZQUEZ MD Clinical Indication: Decreased Output, Hypotension Comparison: 12/28/2016 Findings: Cardiomediastinal silhouette is stable. Focal lung consolidation: Left perihilar and basilar atelectasis. Right lung remains relatively clear. Pleural effusion: None Pneumothorax: None Acute bony or soft tissue abnormality: None Impression: 1. No acute abnormalities in the chest. Electronically signed by: Luis Antonio Santiago MD 12/29/2016 5:43 AM CDT
[2016-12-29] MEDS: PIPERACILLIN/TAZOBACTAM 2.25 GM in SODIUM CHLORIDE 0.9% 50ML 50 ML IVPB SCH ×3 (06:04→23:03)
[2016-12-29] MEDS: PANTOPRAZOLE SODIUM IV 40 MG VIAL IV SCH (06:05)
[2016-12-29] MEDS: IPRATROPIUM/ALBUTEROL 3 ML VIAL NEB SCH ×4 (08:50→20:58)
[2016-12-29] MEDS: ENOXAPARIN SODIUM 40 MG/0.4 ML SYG SUBCU SCH (11:01)
--- NOTE | 2016-12-29 13:16 | PN ---
DATE: 12/29/16 SUBJECTIVE: The patient is still having a significant oliguric episode since her significant hypotension was noted approximately 3 AM yesterday morning postoperatively. Her abdomen is still distended, but she is getting fairly good drainage out of the bulb drainage site with milking. Urine output is still significantly down. Significant fluid resuscitation was carried yesterday and last evening and will be now modified to a maintenance level. The patient is still just getting some ice chips until improved bowel tone activity is noted under Dr. George's supervision. OBJECTIVE: VITAL SIGNS: Afebrile. Pulse 110. Blood pressure up to 115/62. Pulse oximetry 9 5% on 40% FIO2 utilizing BiPAP. Her chest x-ray this morning was remarkably clear with no acute abnormalities noted. LUNGS: Diminished breath sounds. HEART: Regular. ABDOMEN: Diminished bowel tone activity. GENITOURINARY: Last evening, the patient was describing significant urgency to pass urine, possibly from her Desai catheter being present. Ultrasound machine was brought from the Emergency Room to more fully evaluate for the possibility of a malfunctioning Desai, but no significant urine in the bladder was evident on ultrasound examination last evening. Further efforts to ensure proper placement of the Desai were also performed. Overnight, she did have approximately 87 mL of urine output, which is still quite a little bit less than the significant amount of fluid given to her. Approximately 10 pounds of weight gain was evident, which again could be related to the fluid resuscitation in an effort to reverse the significant hypotensive episode with subsequent renal injury noted. LABORATORY: White count 17,900 with 88% neutrophils, down from 20,600 yesterday with 92% neutrophils of which 25 were bands. This was gone as far as the bandemia today. Chemistries did show potassium 4.7 with potassium containing IVs being stopped last evening. BUN up to 34, creatinine up to 3.32 in light of the acute kidney injury. Glucose 139, calcium 8.1, serum osmolality 285, bilirubin 1.5, AST 45, beta natriuretic peptide 289 up from 168 showing the presence of the added fluid challenge. Albumin 3.1. Urinalysis does some show some hematuria and a small amount of pyuria. Blood cultures are negative to date. ASSESSMENT: 1. Postoperative day #1 open appendectomy requiring extensive lavage and exploration for appendiceal removal, performed by Dr. George yesterday morning. 2. History of acute abdominal pain, probably secondary to the acute appendicitis with path specimen pending. 3. Acute renal injury with apparent acute tubular necrosis initiated by a significant hypotensive "shock" episode yesterday morning, now showing improvement after fluid supplementation has been given and treatment continues. 4. History of congestive heart failure with last echocardiogram in 2004 with an ejection fraction of 75% with congestive heart failure of undetermined etiology. 5. Chronic tobacco use, now using E-cigarettes or vapor. 6. History of hypotension postoperatively. 7. Relative oliguria with close followup of fluid supplementation and efforts to avoid overhydration. 8. Moderate obesity with a body mass index of 32. 9. Leukocytosis, probably secondary to the acute appendicitis. PLAN: We have communicated with Dr. Holcomb last evening and again today and suggestions of continuing with maintenance fluid at this time and await for spontaneous diuresis. If diuresis does not become evident, then will continue to talk with Dr. Holcomb and may require more intensive and personal intervention by the radio program director on duty. Reevaluation on an ongoing basis. Anticipate spontaneous gentle diuresis and off-loading of some of the fluid and third spacing of the abdomen later today or tonight with reevaluation on a continuous basis. #[id number] [facility]
[2016-12-29] MEDS: DEX 5% W/NACL 0.45% 1000ML 1,000 ML IVS PRN (14:38)
[2016-12-29] MEDS ORDERED: SODIUM CHL 0.9% 100ML MINI-BAG 0 ML IVPB ONE (14:46)
[2016-12-29] MEDS ORDERED: SODIUM CHL 0.9% 50ML MIN-BAG+ 50 ML IVPB ONE (14:47)
--- NOTE | 2016-12-29 15:24 | US ---
Sonogram of the bladder. Indication: bladder pain,post-op appe.Demo for nurses Comparison: CT December 27, 2016. IMPRESSION: Examination technically limited due to intra-abdominal drainage catheter related to recent appendectomy. The bladder is collapsed despite instillation of 50 mL of saline via the Desai catheter. The bladder is not well characterized and the examination is essentially nondiagnostic. Electronically signed by: Scooter Luu MD 12/29/2016 3:23 PM CDT
[2016-12-30] MEDS: HYDROmorphone HCL INJ 2 MG/ML VIAL IV PRN ×3 (00:42→19:54)
[2016-12-30] MEDS ORDERED: PIPERACILLIN/TAZOBACTAM 2.25 GM VIAL IVPB ONE (03:00)
[2016-12-30] MEDS ORDERED: metroNIDAZOLE IV PREMIX 500MG 100 ML IVPB ONE (03:00)
[2016-12-30] MEDS ORDERED: SODIUM CHLORIDE 0.9% 50ML 50 ML ONE (03:00)
[2016-12-30] MEDS: metroNIDAZOLE IV PREMIX 500MG 500 MG in PREMIX BAG 1 BAG IVPB SCH (03:07)
[2016-12-30] MEDS: PANTOPRAZOLE SODIUM IV 40 MG VIAL IV SCH (05:42)
[2016-12-30] MEDS: PIPERACILLIN/TAZOBACTAM 2.25 GM in SODIUM CHLORIDE 0.9% 50ML 50 ML IVPB SCH (05:55)
[2016-12-30] MEDS: DEX 5% W/NACL 0.45% 1000ML 1,000 ML IVS PRN ×2 (07:56→21:27)
[2016-12-30] MEDS: IPRATROPIUM/ALBUTEROL 3 ML VIAL NEB SCH ×4 (08:08→20:42)
[2016-12-30] MEDS: ENOXAPARIN SODIUM 40 MG/0.4 ML SYG SUBCU SCH (08:10)
[2016-12-30] MEDS ORDERED: MEROPENEM 500 MG VIAL IVPB ONE (09:40)
[2016-12-30] MEDS ORDERED: SODIUM CHL 0.9% 50ML MIN-BAG+ 50 ML IVPB ONE (09:40)
[2016-12-30] MEDS: MEROPENEM 500 MG in SODIUM CHL 0.9% 50ML MIN-BAG+ 50 ML IVPB SCH (09:46)
--- NOTE | 2016-12-30 16:56 | RAD ---
EXAM DESCRIPTION: Chest,1 View CLINICAL HISTORY: 76 years Female possible aspiration COMPARISON: 12/29/2016 at 5:11 AM. FINDINGS: Cardiac size and mediastinal contour are unchanged. There is an area of linear atelectasis extending into the left upper lobe which is stable. Small amount of basilar atelectasis on the left which appears unchanged. No area of alveolar infiltrate is noted. No definite pleural fluid. IMPRESSION: Atelectasis in the left upper lobe and left lung base which appears unchanged Electronically signed by: Elizabeth Rubio 12/30/2016 4:54 PM CDT
--- NOTE | 2016-12-30 20:45 | PN ---
DATE: 12/30/16 SUPERVISING PHYSICIAN: Hal Shannon M.D. SUBJECTIVE: The patient continues to be on BiPAP. She is showing a little bit of improvement in her urine output. She remains afebrile. OBJECTIVE: VITAL SIGNS: T max 98.7, pulse 93, blood pressure 133/76, respirations 21, satting 92% on a Venti mask at rest. I's and O's show 1406 balance with 1560 in, 154 out. Weight is 94.0 kg. CHEST: Lung sounds are diminished throughout. HEART: Regular rate and rhythm. ABDOMEN: Abdominal binder in place. Bowel sounds are very distant and diminished. LABORATORY: White count is down to 13.2, hemoglobin 11.5, hematocrit 35.0, platelet count 211,000. Differential continues to show a left shift. Chemistries show normal electrolytes with potassium 4.7, BUN 49, creatinine is up to 4.41, glucose 141. Liver functions show to be within normal limits. Albumin was 2.9. MICROBIOLOGY: Four sets of blood cultures remain negative, two sets at 48 hours and two sets at 24 hours. RADIOLOGY: Chest x-ray today per radiology interpretation single view shows atelectasis in the left upper lobe and lung base with appearance unchanged. ASSESSMENT: 1. Postoperative day #1 open appendectomy requiring extensive lavage and exploration for appendiceal removal, performed by Dr. George. 2. History of acute abdominal pain secondary to the acute appendicitis with path specimen pending. 3. Acute renal injury with apparent acute tubular necrosis initiated by a significant hypotensive "shock" state the previous 24 hours showing some improvement with improving urinary output but worsening renal function on laboratory studies. 4. History of congestive heart failure with last echocardiogram in 2004 with an ejection fraction of 75% with congestive heart failure of undetermined etiology. 5. Chronic tobacco use, now using E-cigarettes or vapor. 6. History of hypotension postoperatively showing to be stable now with IV fluids. 7. Relative oliguria with close followup of fluid supplementation. 8. Moderate obesity with a body mass index of 32. 9. Leukocytosis, probably secondary to the acute appendicitis showing improvement. PLAN: I did discuss the patient's case with Dr. Holcomb who agrees with current plan of care at this point in regards to change in her antibiotic therapy from Flagyl and Zosyn to Meropenem in efforts to improve renal function. Also discussed the case with Dr. Blackburn in regards to antibiotic therapy and renal function. She recommended changing the patient's antibitic to Meropenem and renal dosing as indicated by creatinine clearance of less than 10 to 500 mg every 24 hours with close monitoring as Meropenem should cover anaerobes that Flagyl is covering as well as Zosyn. Will continue to monitor output closely and adjust fluids as needed. Will plan to repeat laboratory studies in the morning to further evaluate kidney function and closely monitor for any third spacing that may develop. Until discharge, will continue to monitor the patient closely and treat appropriately. #[id number] [facility]
[2016-12-31] MEDS: HYDROmorphone HCL INJ 2 MG/ML VIAL IV PRN ×5 (02:14→23:55)
[2016-12-31] MEDS: PANTOPRAZOLE SODIUM IV 40 MG VIAL IV SCH (05:44)
[2016-12-31] MEDS: IPRATROPIUM/ALBUTEROL 3 ML VIAL NEB SCH ×4 (07:55→20:15)
[2016-12-31] MEDS ORDERED: SODIUM CHL 0.9% 50ML MIN-BAG+ 50 ML IVPB ONE (08:24)
[2016-12-31] MEDS ORDERED: MEROPENEM 500 MG VIAL IVPB ONE (08:25)
[2016-12-31] MEDS ORDERED: MAGNESIUM HYDROXIDE 30 ML UD PO ONE (08:34)
[2016-12-31] MEDS: MEROPENEM 500 MG in SODIUM CHL 0.9% 50ML MIN-BAG+ 50 ML IVPB SCH (08:40)
[2016-12-31] MEDS ORDERED: ALBUMIN 25 GM in PREMIX BOTTLE 1 BOTTLE IVPB ONE (09:00)
[2016-12-31] MEDS: ENOXAPARIN SODIUM 40 MG/0.4 ML SYG SUBCU SCH (09:25)
[2016-12-31] MEDS: DEX 5% W/NACL 0.45% 1000ML 1,000 ML IVS PRN ×2 (09:27→22:18)
[2016-12-31] MEDS: BUMETANIDE 0.25 MG/ML VIAL IV SCH ×2 (10:55→13:01)
[2017-01-01] MEDS: HYDROmorphone HCL INJ 2 MG/ML VIAL IV PRN ×3 (02:34→20:18)
[2017-01-01] MEDS: PANTOPRAZOLE SODIUM IV 40 MG VIAL IV SCH (06:03)
--- NOTE | 2017-01-01 07:54 | PN ---
SUPERVISING PHYSICIAN: Hal Shannon MD DATE: 12/31/16 SUBJECTIVE: The patient continues to show improvement being able to stay on nasal cannula. Her mentation is much better today. She has had good pain control. She has had one episode of nausea yesterday while they were rolling her and none since. She does remain afebrile. Her urine output has improved from the last 24 hours. OBJECTIVE: VITAL SIGNS: T-max 98.9. Pulse 115. Blood pressure 130/76. Respirations 22. O2 saturation 93% on 3 liters nasal cannula. I&Os show 1800 in, 473 out, which is improved from the previous day of 154, for a total balance of 1327. Weight 94.7 kg. CHEST: Lungs clear to auscultation, diminished towards the bases. HEART: Regular rate and rhythm. ABDOMEN: Abdominal binding remains in place. Bowel sounds are distant, but present. EXTREMITIES: No cyanosis, clubbing or edema. NEUROLOGIC: Alert to herself and easily reoriented to surroundings. LABORATORY: White count continues to show improvement and is down to 11.2 with hemoglobin 10.9, hematocrit 33.9, platelet count 216,000. Differential continues to show a left shift, but improving. Chemistries show normal electrolytes with potassium 4.3, BUN up to 62, creatinine up a little bit to 4.69. Glucose has been 127 to 140s. Liver functions within normal limits. Albumin down to 2.8. RADIOLOGY: Chest x-ray per radiologic interpretation, single view, shows atelectasis in the left upper lobe and left lung base which appears to be unchanged. ASSESSMENT: 1. Postoperative day #2 open appendectomy requiring extensive lavage and exploration for appendiceal removal, performed by Dr. George. 2. History of acute abdominal pain secondary to the acute appendicitis with path specimen pending with the patient showing demonstrating some degree of sepsis, but showing improvement after IV fluids, but continues to show decreasing renal function. 3. Acute renal injury with apparent acute tubular necrosis initiated by a significant hypotensive "shock" event secondary to sepsis in the past 48 hours, showing continual improvement with improved urine output as well as stabilization of her renal function on laboratory studies, continuing to closely monitor. 4. History of congestive heart failure with last echocardiogram in 2004 with an ejection fraction of 75% with etiology undetermined. 5. Chronic tobacco use, history of using E-cigarettes or vapor. 6. History of hypotension postoperatively showing to be stable now with IV fluids. 7. Moderate obesity with a body mass index of 32. 8. Leukocytosis, showing improvement daily, secondary to #1. 9. Hypoalbuminemia secondary to nutritional status from chronic illness and exacerbated by recent surgical procedures for open appendectomy with the patient having demonstrating a systemic inflammatory response and worsening renal function. PLAN: Once again discussed the patient's progress with Dr. George and Dr. Holcomb. Dr. Holcomb recommends that it appears she is starting to have some good diuresis and hopefully leveling off on her creatinine and recommended that we give her 25 grams of albumin to be followed by 2 mg of Bumex. We will continue with antibiotic therapy with meropenem. Dr. George is managing diet and pain control. We will utilize BiPAP as needed and continue to work to improve lung function with aggressive pulmonary hygiene. The patient is to be up today to a bedside chair and is being started on a clear liquid diet. We will plan to repeat CBC and BMP in the morning. Until then, we will continue to monitor the patient closely and treat appropriately. #[id number] [facility]
[2017-01-01] MEDS: IPRATROPIUM/ALBUTEROL 3 ML VIAL NEB SCH ×4 (08:20→20:56)
[2017-01-01] MEDS ORDERED: MEROPENEM 500 MG VIAL IVPB ONE ×2 (08:27→20:04)
[2017-01-01] MEDS ORDERED: SODIUM CHL 0.9% 50ML MIN-BAG+ 50 ML IVPB ONE ×2 (08:27→20:04)
[2017-01-01] MEDS: BIFIDOBACTERIUM INFANTIS 4 MG CAP PO SCH (09:05)
[2017-01-01] MEDS: BUMETANIDE 0.25 MG/ML VIAL IV SCH (09:05)
[2017-01-01] MEDS: ENOXAPARIN SODIUM 30 MG/0.3 ML SYG SUBCU SCH (09:05)
[2017-01-01] MEDS: MEROPENEM 500 MG in SODIUM CHL 0.9% 50ML MIN-BAG+ 50 ML IVPB SCH ×2 (09:06→20:21)
[2017-01-01] MEDS: DEX 5% W/NACL 0.45% 1000ML 1,000 ML IVS PRN ×2 (10:23→21:00)
[2017-01-01] MEDS ORDERED: ALBUMIN 25 GM in PREMIX BOTTLE 1 BOTTLE IVPB ONE (10:55)
[2017-01-01] MEDS ORDERED: BUMETANIDE TAB 2 MG TAB PO SCH (11:00)
[2017-01-01] MEDS: HYDROcodone 5MG/APAP 325MG 1 EA TAB PO PRN (15:18)
--- NOTE | 2017-01-01 22:02 | PN ---
DATE: 01/01/17 SUPERVISING PHYSICIAN: Hal Shannon M.D. SUBJECTIVE: The patient continues to show good progression. She is much more alert today. She has had some episodes of confusion but is easily reoriented. She is requiring BiPAP intermittently and is showing good output and remains afebrile. OBJECTIVE: VITAL SIGNS: T max 99.2, pulse 89, blood pressure 140/79, respirations 15, satting 96% on nasal cannula at 6 liters. I's and O's show a positive balance of 847 with 2720 in, 1873 out. Weight is 94.7 kg which is fairly stable. She has not yet had a bowel movement. LUNGS: Clear to auscultation, just slightly diminished towards the bases lateral aspect. HEART : Regular rate and rhythm. ABDOMEN: Abdominal binder in place. Distal bowel sounds. Still remains tender and sore on palpation and especially with any movement. EXTREMITIES: No clubbing, cyanosis or edema. NEUROLOGIC: She is alert to herself and location. Shows no neurological status change at this point. LABORATORY: White count now has normalized to 9.3, hemoglobin is stabilized at 11.7, hematocrit 36.0, platelet count 237,000. Differential remains with a left shift that is showing improvement. Chemistries show normal electrolytes today with potassium 4.3, BUN 66, creatinine is down to 3.73. Serum osmolality was up to 296, calcium is normal at 8.5. MICROBIOLOGY: She had 4 sets of blood cultures that remained negative after 4 days, for 2 and 3 for the other set. RADIOLOGY: There is no additional radiographic studies today. ASSESSMENT: 1. Postoperative day #3 for open appendectomy requiring extensive lavage and exploration for appendiceal removal, performed by Dr. George. 2. History of acute abdominal pain secondary to the acute appendicitis with the patient demonstrating some degree of sepsis initially and showing improvement after IV fluids with some decreased renal function, although showing improvement on renal function now with the patient showing good urine output. 3. Acute renal injury with apparent acute tubular necrosis initiated by a significant hypotensive "shock" event secondary to sepsis postoperatively showing improvement now in her urine output as well as stabilization of her renal function which is now improving after albumin and Bumex. 4. History of congestive heart failure with last echocardiogram in 2004 showing an ejection fraction of 75% with etiology undetermined. 5. Chronic tobacco use both with E-cigarettes and vapors. 6. History of hypotension postoperatively showing to be stable now with IV fluids. 7. Moderate obesity with a body mass index of 32. 8. Leukocytosis secondary to sepsis process now normalized after continued IV antibiotics to include Meropenem. 9. Hypoalbuminemia secondary to nutritional status from chronic illness and exacerbated by recent surgical procedures for open appendectomy and systemic inflammatory response with worsening renal function now showing improvement with albumin replacement. PLAN: Will continue to follow the patient along with Dr. George. I did discuss will Dr. Holcomb the patient's renal function this morning. He noted that we will do 1 more day of albumin and Bumex as previous and monitor closely. Will continue with antibiotic therapy with Meropenem and as her renal function increases today will increase to 500 every 12 hours, and continue to monitor that closely and dose appropriately. Will continue with aggressive pulmonary hygiene and BiPAP as needed. Will plan to repeat her laboratory studies in the morning. She continues on a clear liquid diet today as well as receiving some Milk of Magnesia. I have ordered a PT consultation in efforts to help get the patient to a bedside chair in efforts to hopefully get the patient ambulating. Will anticipate discharge hopefully within the next 2 to 3 days depending on clinical response to treatment. Until then, will continue to monitor and treat appropriately. #[id number] [facility]
[2017-01-02] MEDS: HYDROcodone 5MG/APAP 325MG 1 EA TAB PO PRN (03:07)
[2017-01-02] MEDS: HYDROmorphone HCL INJ 2 MG/ML VIAL IV PRN ×3 (04:14→11:25)
[2017-01-02] MEDS: PANTOPRAZOLE SODIUM IV 40 MG VIAL IV SCH (05:58)
[2017-01-02] MEDS: IV SET AND CAP CHANGE INJ INJ SCH (08:00)
[2017-01-02] MEDS: IPRATROPIUM/ALBUTEROL 3 ML VIAL NEB SCH ×4 (08:09→21:25)
[2017-01-02] MEDS ORDERED: SODIUM CHL 0.9% 50ML MIN-BAG+ 50 ML IVPB ONE ×2 (09:52→20:29)
[2017-01-02] MEDS ORDERED: MEROPENEM 500 MG VIAL IVPB ONE ×2 (09:53→20:29)
[2017-01-02] MEDS: MEROPENEM 500 MG in SODIUM CHL 0.9% 50ML MIN-BAG+ 50 ML IVPB SCH ×2 (09:57→21:15)
[2017-01-02] MEDS: ENOXAPARIN SODIUM 30 MG/0.3 ML SYG SUBCU SCH (09:57)
[2017-01-02] MEDS: BIFIDOBACTERIUM INFANTIS 4 MG CAP PO SCH (09:59)
[2017-01-02] MEDS ORDERED: MAGNESIUM HYDROXIDE 30 ML UD PO ONE (11:48)
[2017-01-02] MEDS: DEX 5% W/NACL 0.45% 1000ML 1,000 ML IVS PRN (19:53)
[2017-01-03] MEDS: HYDROcodone 5MG/APAP 325MG 1 EA TAB PO PRN ×4 (04:53→22:50)
[2017-01-03] MEDS: PANTOPRAZOLE SODIUM IV 40 MG VIAL IV SCH (05:43)
[2017-01-03] MEDS: SODIUM CHLORIDE 0.9% (FLUSH) 10 ML SYG IV PRN ×2 (05:43→23:36)
[2017-01-03] MEDS ORDERED: SODIUM CHL 0.9% 50ML MIN-BAG+ 50 ML IVPB ONE ×2 (08:25→19:49)
[2017-01-03] MEDS ORDERED: MEROPENEM 500 MG VIAL IVPB ONE ×2 (08:26→19:50)
[2017-01-03] MEDS: IPRATROPIUM/ALBUTEROL 3 ML VIAL NEB SCH ×4 (08:32→20:32)
[2017-01-03] MEDS: BIFIDOBACTERIUM INFANTIS 4 MG CAP PO SCH (08:34)
[2017-01-03] MEDS: MEROPENEM 500 MG in SODIUM CHL 0.9% 50ML MIN-BAG+ 50 ML IVPB SCH ×2 (08:34→21:16)
[2017-01-03] MEDS: ENOXAPARIN SODIUM 30 MG/0.3 ML SYG SUBCU SCH (08:35)
--- NOTE | 2017-01-03 10:28 | PN ---
DATE: 01-02-17 SUPERVISING PHYSICIAN: Hal Shannon MD SUBJECTIVE: The patient continues to progress slowly. Her labs are looking better today. She is making good urine. She remains afebrile but is having episodes of confusion and refuses to go to a bedside chair because of the pain. OBJECTIVE: VITAL SIGNS: Temperature 98.1, pulse 76, blood pressure 138/76, respirations 18 , saturation 95% on 4 liters nasal cannula at rest. I&O show negative balance of 85 with 3090 out and 3957 out. She is het to have a bowel movement. Weight 97.8 kg. CHEST: Lungs are fairly clear, just diminished towards the bilateral bases. Patient's assessment is difficult at this time as she refuses to take deep breaths. HEART: Regular rate and rhythm. ABDOMEN: Obese with abdominal binder in place with distant bowel tones. She remains tender on palpation, especially over the surgical site. EXTREMITIES: No cyanosis, clubbing, or edema. NEUROLOGIC: She is alert to herself and will answer questions but is not oriented completely to date and time but can recall why she is in the hospital and knows her family members. LABORATORY: White count down to 9.0, hemoglobin stabilized at 12.0 and hematocrit 36.3 with platelet count of 240,000, differential shows to be without a left shift today. Chemistries show normal electrolytes, potassium 3.6 , BUN down to 58, creatinine down to 2.26, glucose 125, BNP 270. Liver functions showed to be within normal limits. Albumin up to 3.1. Path report review shows microscopic examination shows sections of the appendix with marked acute neutrophilic inflammation involving the full thickness of the wall extending to the second serosal surface. There were no focal areas of tissue necrosis, no infectious organisms were identified within the appendiceal lumen. Please see the reports for full details. MICROBIOLOGY: All blood cultures to date show no growth. RADIOLOGY: No additional radiographic studies were completed today. Will order a single view chest in the morning. ASSESSMENT: 1. Postoperative day #4 for open appendectomy requiring extensive lavage and exploration for appendiceal removal, performed by Dr. George. 2. History of acute abdominal pain secondary to the acute appendicitis with the patient demonstrating some degree of sepsis initially and showing improvement after IV fluids and some decreased renal function initially although showing improvement now after aggressive management with fluids, albumin and diuretics now showing good output and normalizing .BUN and creatinine. 3. Acute renal injury with apparent acute tubular necrosis initiated by a significant hypotensive "shock" event secondary to sepsis postoperative showing improvement with increasing urine output and stabilization of renal function, again with improvement after albumin and Bumex. 4. History of congestive heart failure with last echocardiogram in 2004 with an ejection fraction of 75% with undetermined etiology. 5. Chronic tobacco use with E-cigarettes and vapors. 6. History of hypotension postoperatively showing to be stable now with IV fluids. 9. Moderate obesity with a body mass index of 32. 10. Leukocytosis due to sepsis process, now normalized as well as no longer showing a left shift with the patient continuing on meropenem. 11. Hypoalbuminemia secondary to poor nutritional status from chronic illness and exacerbated by recent surgical procedures for open appendectomy and a systemic inflammatory response with worsening renal function initially initially showing improvement after albumin replacement and diuresis. PLAN: Will continue with clear liquid diet at Dr. George's recommendations and give her additional dose of milk of magnesia and hopefully see a bowel movement soon. I have again talked to physical therapy and ongoing assessments are being completed as the patient has been very difficult to get out of bed into the bedside chair. Will known to to monitor her renal function and dose of meropenem accordingly. Apparently she is on 500 mg every 12 hours. Will again known to with aggressive pulmonary hygiene. Will follow the patient closely and await discharge at Dr. George's discretion. Until the, we will continue to monitor and treat appropriately. [facility][id number] [facility]
[2017-01-03] MEDS ORDERED: MAGNESIUM HYDROXIDE 30 ML UD PO ONE (16:08)
--- NOTE | 2017-01-03 17:16 | PN ---
DATE: 01/03/17 SUPERVISING PHYSICIAN: Hal Shannon M.D. SUBJECTIVE: The patient is sitting in bed. She has just finished her meal. She has no complaints of chest pain, nausea, vomiting or diarrhea. She does complain of some constipation as she feels like she may have some constipation and she has not had a bowel movement in several days, but she is passing gas. OBJECTIVE: She is afebrile, heart rate 99, pulse rate 80, blood pressure 132/74 , respiratory rate 20, O2 sat is 94% on 4 liters nasal cannula. RESPIRATORY: Diminished breath sounds throughout but otherwise clear to auscultation. CARDIAC: Regular rate and rhythm. ABDOMEN: Rounded, slightly firm. She has hypoactive bowel sounds. NEUROLOGIC: She is awake, alert and oriented times three. LABORATORY: WBCs 9, hemoglobin and hematocrit are stabilized at 12 and 36.3 with platelet count 240. Electrolytes are basically within normal limits and her BUN and creatinine have improved to 46 and 1.39. Glucose has run between 111 and 141. All other labs and films have been reviewed via the EMR. ASSESSMENT: 1. Postoperative day #5 for open appendectomy requiring extensive lavage and exploration for appendiceal removal, performed by Dr. George. 2. History of acute abdominal pain secondary to the acute appendicitis with the patient demonstrating some degree of sepsis initially and showing improvement after IV fluids. 3. Acute renal injury with apparent acute tubular necrosis with significant hypertensive hypotensive "shock" event secondary to sepsis postoperatively showing improvement with fluids and stabilization of renal function. 4. History of congestive heart failure with last echocardiogram in 2004 with an ejection fraction of 75% with undetermined etiology. 5. Chronic tobacco use with E-cigarettes and vapors. She quit smoking approximately 8 years ago. 6. Moderate obesity with a body mass index of 32. 7. Leukocytosis due to sepsis process that has now normalized. 8. Hypoalbuminemia secondary to poor nutritional status from chronic health and exacerbated by recent surgical procedures. PLAN: We will continue present supportive care. I have discussed her condition with Dr. George. He has advanced her diet. She had refused physical therapy on Wednesday but she has agreed to do physical therapy tomorrow, so that has been ordered. I have ordered a CBC and a CMP in the morning. I have encouraged good pulmonary hygiene as well as encouraged her to stop using E- cigarettes. Surgical issues will be addressed per Dr. George. Otherwise we will continue to monitor closely and followup as needed. Dr. Shannon is the collaborating physician and available for consultation. #[id number] [facility]
[2017-01-03] MEDS: DEX 5% W/NACL 0.45% 1000ML 1,000 ML IVS PRN (18:44)
[2017-01-04] MEDS: HYDROcodone 5MG/APAP 325MG 1 EA TAB PO PRN ×3 (04:06→20:19)
[2017-01-04] MEDS: SODIUM CHLORIDE 0.9% (FLUSH) 10 ML SYG IV PRN (06:11)
[2017-01-04] MEDS: PANTOPRAZOLE SODIUM IV 40 MG VIAL IV SCH (06:12)
[2017-01-04] MEDS ORDERED: SODIUM CHL 0.9% 50ML MIN-BAG+ 50 ML IVPB ONE ×2 (08:12→19:53)
[2017-01-04] MEDS ORDERED: MEROPENEM 500 MG VIAL IVPB ONE ×2 (08:13→19:53)
[2017-01-04] MEDS: ENOXAPARIN SODIUM 30 MG/0.3 ML SYG SUBCU SCH (08:59)
[2017-01-04] MEDS: BIFIDOBACTERIUM INFANTIS 4 MG CAP PO SCH (08:59)
[2017-01-04] MEDS: IPRATROPIUM/ALBUTEROL 3 ML VIAL NEB SCH ×4 (09:00→20:57)
[2017-01-04] MEDS: MEROPENEM 500 MG in SODIUM CHL 0.9% 50ML MIN-BAG+ 50 ML IVPB SCH ×2 (09:01→20:19)
--- NOTE | 2017-01-04 15:04 | PN ---
SUPERVISING PHYSICIAN: Phillip Tracy MD DATE: 01/04/17 SUBJECTIVE: The patient is sitting on the side of the bed. She is working with physical therapy at this time. We discussed at length that she would like to do Swing Bed status to help with her strengthening. She continues to pass gas, but has had no bowel movements. Otherwise, she still complains of some shortness of breath with exertion, but she denies any chest pain or abdominal pain other than her postsurgical issues. OBJECTIVE: VITAL SIGNS: Afebrile. Heart rate 87. Blood pressure 125/66. Respiratory rate 20. O2 saturation 92% on 4 liters nasal cannula. LUNGS: Somewhat diminished at the bases, otherwise clear to auscultation. CARDIAC: Regular rate and rhythm. ABDOMEN: She has an abdominal binder in place. Bowel sounds are positive. EXTREMITIES: No cyanosis, clubbing or edema. NEUROLOGIC: Awake, alert and oriented times three. LABORATORY: White count slightly elevated to 11.5, but her neutrophils have normalized to 76.6. Hemoglobin and hematocrit are stable at 11.7 and 35.9. Sodium 142, potassium 3.8, chloride 103, carbon dioxide 32, BUN 32, creatinine has normalized to 1.05. Glucoses run between 111 and 127. All other labs and films have been reviewed via the EMR. ASSESSMENT: 1. Postoperative day #6 for open appendectomy requiring extensive lavage and exploration for appendiceal removal, performed by Dr. George. 2. History of acute abdominal pain secondary to the acute appendicitis with the patient initially demonstrating some degree of sepsis, but has shown improvement after IV fluids. 3. Acute renal injury with apparent acute tubular necrosis with significant hypotensive "shock" event secondary to sepsis, now showing improvement with stabilization of renal function. 4. History of congestive heart failure with last echocardiogram in 2004 with an ejection fraction of 75% with undetermined etiology. 5. Chronic tobacco use with E-cigarettes and vapors. She quit smoking approximately 8 years ago. 6. Moderate obesity with a body mass index of 32. 7. Leukocytosis. 8. Hypoalbuminemia. PLAN: We will continue present supportive care. I have ordered a BMP and CBC in the morning. I will defer to Dr. George on the postsurgical issues. I have encouraged good pulmonary hygiene. She has been evaluated by physical therapy for possible Swing Bed admission and we will plan to do that in the next day or two as long as her condition remains stable. We need to monitor closely for a bowel movement and I will order an abdominal x-ray for tomorrow. Otherwise, we will continue to monitor the patient closely and followup as needed. Dr. Tracy is the collaborating physician and available for consultation. [facility][id number] [facility]
[2017-01-04] MEDS: DEX 5% W/NACL 0.45% 1000ML 1,000 ML IVS PRN (22:57)
[2017-01-05] MEDS: HYDROcodone 5MG/APAP 325MG 1 EA TAB PO PRN ×4 (00:04→22:56)
[2017-01-05] MEDS: PANTOPRAZOLE SODIUM IV 40 MG VIAL IV SCH (06:19)
[2017-01-05] MEDS: SODIUM CHLORIDE 0.9% (FLUSH) 10 ML SYG IV PRN ×2 (06:19→21:08)
--- NOTE | 2017-01-05 07:50 | RAD ---
EXAM DESCRIPTION: Abdomen Flat Upright CLINICAL HISTORY: abd pain COMPARISON: December 27, 2016 FINDINGS: AP supine and upright views of the abdomen are obtained. Air-filled dilated loops of small bowel are seen in the central abdomen with air filled distention of the stomach noted. There is a paucity of air identified in the colon. Surgical skin nicol in the central, right lower quadrant, and left lower quadrant of the abdomen are seen with surgical drain catheter projecting over the right mid to lower abdomen and pelvis. There is a small amount of air in the rectosigmoid colon region. Scattered air-fluid levels are identified. No free intraperitoneal air is appreciated. No obvious organomegaly is seen. No abnormal calcifications are seen in the expected location of the renal collecting systems. Single view of the chest shows cardiac silhouette to be mildly enlarged without pulmonary vascular congestion. There is increased density in the right infrahilar region with elevation of the right hemidiaphragm. Moderate vascular calcifications of the thoracic aorta are seen. IMPRESSION: Interval postsurgical changes to the abdomen are noted with surgical drain in place. Air-filled dilated loops of small bowel in the central abdomen with moderate air-filled distention of the stomach is seen. There may be some air in the right colon with small amount of air in the rectosigmoid region. These findings suggest postop ileus versus partial distal small bowel obstruction. Continued follow-up is recommended. Atelectasis versus developing pneumonia or aspiration in the right lower lobe infrahilar region is seen. Electronically signed by: Gilmar Field MD 01/05/2017 7:49 AM CDT
[2017-01-05] MEDS ORDERED: SODIUM CHL 0.9% 50ML MIN-BAG+ 50 ML IVPB ONE ×2 (07:56→20:49)
[2017-01-05] MEDS ORDERED: MEROPENEM 500 MG VIAL IVPB ONE ×2 (07:56→20:49)
[2017-01-05] MEDS: BIFIDOBACTERIUM INFANTIS 4 MG CAP PO SCH (08:15)
[2017-01-05] MEDS: ENOXAPARIN SODIUM 30 MG/0.3 ML SYG SUBCU SCH (08:16)
[2017-01-05] MEDS: MEROPENEM 500 MG in SODIUM CHL 0.9% 50ML MIN-BAG+ 50 ML IVPB SCH ×2 (08:16→21:08)
[2017-01-05] MEDS: IV SET AND CAP CHANGE INJ INJ SCH (08:19)
[2017-01-05] MEDS: IPRATROPIUM/ALBUTEROL 3 ML VIAL NEB SCH ×4 (08:36→21:00)
[2017-01-05] MEDS ORDERED: MAGNESIUM HYDROXIDE 30 ML UD PO ONE (09:48)
[2017-01-05] MEDS: FLUCONAZOLE 100 MG TAB PO SCH (10:58)
--- NOTE | 2017-01-05 13:35 | PN ---
SUPERVISING PHYSICIAN: Phillip Tracy MD DATE: 01/05/17 SUBJECTIVE: The patient is sitting up in her chair in the hospital room. She is eating her lunch. Her sister is at the bedside. She has no complaints of shortness of breath, chest pain, nausea or vomiting. She is passing gas, but has not had a bowel movement as yet. She would like to have some regular yogurt instead of sugar free yogurt. OBJECTIVE: VITAL SIGNS: Afebrile. Heart rate 76. Blood pressure 124/69. Respiratory rate 20. O2 saturation 95% on 4 liters. It has dropped as low as 88% on 3 liters nasal cannula overnight. LUNGS: Essentially clear to auscultation bilaterally. She is slightly diminished at the bases. CARDIAC: Regular rate and rhythm. ABDOMEN: Slightly firm. She has an abdominal binder in place. Bowel sounds are positive. EXTREMITIES: No cyanosis, clubbing or edema. NEUROLOGIC: Awake, alert and oriented times three. LABORATORY: White count slightly increased at 12.3 with a stable hemoglobin and hematocrit of 12.1 and 37.6. Platelet count 287. Chloride 98, carbon dioxide 33, BUN 25, creatinine 0.93. Glucoses have run between 111 and 125. Urinalysis from yesterday showed moderate urine blood with a small amount of urine leukocyte esterase, 10 to 20 urine RBCs, too numerous to count urine WBCs and 4+ budding yeast. Urine culture is pending. Final blood culture showed no growth after 5 days. Abdominal x-ray per radiologic interpretation shows interval postsurgical changes to the abdomen with a surgical drain in place, air -filled dilated loops of small bowel in the central abdomen with moderate air- filled distention in the stomach seen. There may be some air in the right colon with a small amount of air in the rectosigmoid region. These findings suggest postoperative ileus versus partial distal small bowel obstruction. Continued followup is advised. Atelectasis versus developing pneumonia or aspiration of the right lower lobe infrahilar region is seen. All other labs and films have been reviewed via the EMR. ASSESSMENT: 1. Postoperative day #7 for open appendectomy requiring extensive lavage and exploration for appendiceal removal, performed by Dr. George, general surgeon. 2. History of acute abdominal pain secondary to the acute appendicitis with the patient initially demonstrating some degree of sepsis, but has shown improvement since surgery and IV fluids. 3. Possible postoperative ileus versus small bowel obstruction per radiologic interpretation. We will continue to monitor closely. 4. Acute renal injury with apparent acute tubular necrosis with significant hypotensive "shock" event secondary to sepsis, now stabilized. 5. History of congestive heart failure with last echocardiogram in 2004 with an ejection fraction of 75% with undetermined etiology. 6. Chronic tobacco use with E-cigarettes and vapors. She quit smoking approximately 8 years ago. 7. Moderate obesity. 8. Leukocytosis, slightly worsening. 9. Hypoalbuminemia. 10. Urinary tract infection with positive leukocyte esterase and 4+ budding yeast, culture pending. PLAN: We will continue present supportive care. I have discussed the case with Dr. George. Surgical issues will be per Dr. George. I have spoken to Dr. Blackburn today and she agreed with placing the patient on Diflucan for the yeast in her urine and said to continue to monitor her white blood cell count and if it continues to elevate tomorrow, we can also cover for MRSA. She also suggested I call her tomorrow with an update. I have ordered routine lab. I have encouraged her to ambulate as much as possible with physical therapy as well as encouraged good pulmonary hygiene. She will get milk of magnesia as she has not had a bowel movement. Will plan on swing bed admission with the next day or so. We will continue to monitor the patient closely and followup as needed. Dr. Tracy is the collaborating physician and available for consultation. #[id number] [facility]
[2017-01-05] MEDS ORDERED: BISACODYL SUPPOSITORY 10 MG PR ONE (22:29)
[2017-01-05] MEDS: TEMAZEPAM 15 MG CAP PO PRN (22:56)
--- NOTE | 2017-01-06 06:24 | RAD ---
CLINICAL HISTORY:Abdominal pain, nausea. :1940. Sex:Female. TECHNIQUE: Supine and upright views of the abdomen. There are dilated loops of small bowel measuring up to 4.4 cm in diameter. Surgical nicol are noted along the midline and bilateral lower pelvis. A surgical drain is in place. There are no abnormal calcifications. The bones are unremarkable. IMPRESSION: Dilated loops of small bowel, likely due to a postoperative ileus. However, a small bowel obstruction may have a similar appearance Electronically signed by: Adán Vaz MD 01/06/2017 6:23 AM CDT Workstation: [id number]
[2017-01-06] MEDS: SODIUM CHLORIDE 0.9% (FLUSH) 10 ML SYG IV PRN (06:40)
[2017-01-06] MEDS: PANTOPRAZOLE SODIUM IV 40 MG VIAL IV SCH (06:40)
[2017-01-06] MEDS: DEX 5% W/NACL 0.45% 1000ML 1,000 ML IVS PRN (06:44)
[2017-01-06] MEDS ORDERED: SODIUM CHL 0.9% 50ML MIN-BAG+ 50 ML IVPB ONE ×2 (09:01→19:42)
[2017-01-06] MEDS ORDERED: MEROPENEM 500 MG VIAL IVPB ONE ×2 (09:02→19:42)
[2017-01-06] MEDS: IPRATROPIUM/ALBUTEROL 3 ML VIAL NEB SCH ×4 (09:05→19:40)
[2017-01-06] MEDS ORDERED: BISACODYL SUPPOSITORY 10 MG PR ONE ×2 (09:37→11:26)
[2017-01-06] MEDS ORDERED: MAGNESIUM HYDROXIDE 30 ML UD PO ONE (09:37)
[2017-01-06] MEDS: ENOXAPARIN SODIUM 30 MG/0.3 ML SYG SUBCU SCH (10:00)
[2017-01-06] MEDS: FLUCONAZOLE 100 MG TAB PO SCH (10:00)
[2017-01-06] MEDS: MEROPENEM 500 MG in SODIUM CHL 0.9% 50ML MIN-BAG+ 50 ML IVPB SCH ×2 (10:02→20:41)
[2017-01-06] MEDS ORDERED: MAGNESIUM HYDROXIDE 30 ML UD ONE (11:26)
[2017-01-06] MEDS: BIFIDOBACTERIUM INFANTIS 4 MG CAP PO SCH (11:47)
[2017-01-06] MEDS ORDERED: FUROSEMIDE INJ 20 MG/2 ML VIAL IV ONE (19:15)
[2017-01-06] MEDS: TEMAZEPAM 15 MG CAP PO PRN (23:38)
[2017-01-07] MEDS: PANTOPRAZOLE SODIUM IV 40 MG VIAL IV SCH ×2 (06:07→09:20)
[2017-01-07] MEDS ORDERED: SODIUM CHL 0.9% 50ML MIN-BAG+ 50 ML IVPB ONE ×2 (07:25→20:08)
[2017-01-07] MEDS ORDERED: MEROPENEM 500 MG VIAL IVPB ONE ×2 (07:26→20:08)
--- NOTE | 2017-01-07 07:33 | RAD ---
EXAM DESCRIPTION: Abdomen Flat Upright CLINICAL HISTORY: 76 years Female, fu dilated s bowel COMPARISON: January 06, 2017 FINDINGS: Again seen are intra-abdominal postoperative changes including a surgical drain. Multiple dilated gas-filled small bowel loops in the midabdomen persist, unchanged from yesterday. There is a small amount of stool and gas scattered throughout the colon. Vascular calcifications are noted in the pelvis. IMPRESSION: Abnormal bowel gas pattern as detailed above, unchanged from yesterday. Findings are most consistent with postoperative ileus. Electronically signed by: Adolfo Henry MD 01/07/2017 7:31 AM CDT [facility]station: [id number]
--- NOTE | 2017-01-07 08:12 | PN ---
SUPERVISING PHYSICIAN: Phillip Tracy MD DATE: 01/06/17 SUBJECTIVE: The patient is lying in her hospital bed. She has some mild complaints of shortness of breath, but not any worse than normal. She does complain of some swelling in her lower legs that is making her very uncomfortable. She also reports that she has had several large bowel movements , from which she also feels better. OBJECTIVE: VITAL SIGNS: Afebrile. Heart rate 78. Blood pressure 118/67. Respiratory rate 18. O2 saturation 96% on 2 liters nasal cannula. LUNGS: Essentially clear to auscultation bilaterally. She is somewhat diminished at the bases. CARDIAC: Regular rate and rhythm. ABDOMEN: Rounded, less firm than yesterday. Bowel sounds are positive. EXTREMITIES: +2 pedal edema bilaterally. Bilateral pedal pulses are palpable at +2. NEUROLOGIC: Awake, alert and oriented times three. LABORATORY: WBC 12.5, hemoglobin and hematocrit stable at 12.9 and 39.8. Platelet count 314. Neutrophils 79.7%. Sodium 138, potassium 4.9, chloride 98 , carbon dioxide 33, BUN 19, creatinine 0.85, glucoses run between 114 and 123. Abdominal x-ray shows dilated loops of small bowel most likely due to a postoperative ileus, however, small bowel obstruction may have similar appearance. All other labs and films have been reviewed via the EMR. ASSESSMENT: 1. Postoperative day #8 for open appendectomy requiring extensive lavage and exploration for appendiceal removal, performed by Dr. George, general surgeon. 2. History of acute abdominal pain secondary to the acute appendicitis with the patient initially demonstrating some degree of sepsis, but has shown improvement. 3. Possible postoperative ileus versus small bowel obstruction per radiologic interpretation. We will continue to monitor closely. 4. Constipation postoperatively and with multiple doses of Milk of Magnesia and laxatives has had two to three rather large bowel movements. We will continue to monitor. 5. Acute renal injury, now resolved. 6. History of congestive heart failure with last echocardiogram in 2004 with an ejection fraction of 75% with undetermined etiology. 7. Chronic tobacco use having quit cigarettes about 8 years ago and now uses E-cigarettes and vapors. 8. Moderate obesity. 9. Leukocytosis, stable at this time. 10. Hypoalbuminemia. 11. Urinary tract infection with positive leukocyte esterase and 4+ budding yeast. Cultures are pending. PLAN: We will continue present supportive care. Surgical issues will be per Dr. George. I have ordered her a small amount of IV Lasix at this time. Dr. George has ordered lab and x-ray tomorrow. Hopefully in the next few days she can be discharged to Swing Bed. Otherwise, we will continue to monitor the patient closely and followup as needed. Dr. Tracy is the collaborating physician and available for consultation. #[id number] [facility]
[2017-01-07] MEDS: IPRATROPIUM/ALBUTEROL 3 ML VIAL NEB SCH ×4 (08:30→20:42)
[2017-01-07] MEDS: FLUCONAZOLE 100 MG TAB PO SCH (09:05)
[2017-01-07] MEDS: ENOXAPARIN SODIUM 30 MG/0.3 ML SYG SUBCU SCH (09:05)
[2017-01-07] MEDS: BIFIDOBACTERIUM INFANTIS 4 MG CAP PO SCH (09:06)
[2017-01-07] MEDS: MEROPENEM 500 MG in SODIUM CHL 0.9% 50ML MIN-BAG+ 50 ML IVPB SCH ×2 (09:09→21:04)
[2017-01-07] MEDS ORDERED: FUROSEMIDE INJ 20 MG/2 ML VIAL IV ONE (09:16)
[2017-01-07] MEDS: SODIUM CHLORIDE 0.9% (FLUSH) 10 ML SYG IV PRN ×2 (09:43→21:10)
[2017-01-07] MEDS: DEX 5% W/NACL 0.45% 1000ML 1,000 ML IVS PRN (15:51)
--- NOTE | 2017-01-07 19:58 | PN ---
DATE: 01/07/17 SUPERVISING PHYSICIAN: Phillip Tracy M.D. SUBJECTIVE: The patient is walking in the hallways with Physical Therapy. Early in the day she said she was very sleepy and did not feel very well, but she feels much better this afternoon. She does complain of some edema to her lower legs. She tolerated her food without problems. OBJECTIVE: VITAL SIGNS: She is afebrile, heart rate 84, blood pressure 127/85, respiratory rate 20, O2 sat is 98% on 3 liters nasal cannula. RESPIRATORY: Somewhat diminished at the bases, otherwise clear to auscultation. CARDIAC: Regular rate and rhythm. ABDOMEN: Rounded, much less firm than it has been in the previous several days. Bowel sounds are positive. EXTREMITIES: +1 pedal edema bilaterally. Pedal pulses are palpable. NEUROLOGIC: She is awake, alert and oriented times three. LABORATORY: WBCs have improved to 9.9 with hemoglobin and hematocrit of 11.8 and 35.9. Sodium 137, potassium 4.3, chloride 98, carbon dioxide 32, BUN 14, creatinine 0.76, glucose 109. Abdominal x-ray per radiology interpretation shows abnormal bowel gas pattern, unchanged from yesterday. Findings are most consistent with postoperative ileus. After speaking with Dr. George, he believes that the abdominal x-ray is somewhat improved, especially given the patient's clinical status. All other labs and films have been reviewed via the EMR. ASSESSMENT: 1. Postoperative day #9 for open appendectomy requiring extensive lavage and exploration for appendiceal removal performed by Dr. George, general surgeon. 2. History of acute abdominal pain secondary to the acute appendicitis with the patient initially demonstrating some degree of sepsis, but has shown improvement. 3. Possible postoperative ileus versus small bowel obstruction per radiologic interpretation. We will continue to monitor closely. 4. Constipation postoperatively and with multiple doses of Milk of Magnesia and laxatives has had two to three rather large bowel movements. We will continue to monitor. 5. Acute renal injury, now resolved. 6. History of congestive heart failure with last echocardiogram in 2004 with an ejection fraction of 75% with undetermined etiology. 7. Chronic tobacco use having quit cigarettes about 8 years ago and now uses E-cigarettes and vapors. 8. Moderate obesity. 9. Leukocytosis, stable at this time. 10. Hypoalbuminemia. 11. Urinary tract infection with positive leukocyte esterase and 4+ budding yeast. The patient is presently on Diflucan. PLAN: We will continue present supportive care. Surgical issues will be per Dr. George. I ordered Lasix earlier this morning and she may need another dose of Lasix tomorrow morning, but I will wait until that time as she is on her oral Lasix and hopefully with her up moving around, her edema issues will resolve. We again spoke about discontinuance of her vapor cigarettes. In the next day or so, we will probably discharge her from Acute Care and readmit her to Swing Bed. Will continue to monitor closely and follow as needed. Dr. Tracy is the collaborating physician available for consultation. #[id number] [facility]
[2017-01-07] MEDS: HYDROcodone 5MG/APAP 325MG 1 EA TAB PO PRN ×2 (21:13→23:44)
[2017-01-07] MEDS: TEMAZEPAM 15 MG CAP PO PRN (21:14)
[2017-01-08] MEDS: PANTOPRAZOLE SODIUM IV 40 MG VIAL IV SCH (05:59)
[2017-01-08] MEDS ORDERED: SODIUM CHL 0.9% 50ML MIN-BAG+ 50 ML IVPB ONE (08:41)
[2017-01-08] MEDS ORDERED: MEROPENEM 500 MG VIAL IVPB ONE (08:42)
[2017-01-08] MEDS: IPRATROPIUM/ALBUTEROL 3 ML VIAL NEB SCH ×4 (08:55→20:23)
[2017-01-08] MEDS: BIFIDOBACTERIUM INFANTIS 4 MG CAP PO SCH (09:19)
[2017-01-08] MEDS: FLUCONAZOLE 100 MG TAB PO SCH (09:20)
[2017-01-08] MEDS: MEROPENEM 500 MG in SODIUM CHL 0.9% 50ML MIN-BAG+ 50 ML IVPB SCH (09:22)
[2017-01-08] MEDS: ENOXAPARIN SODIUM 30 MG/0.3 ML SYG SUBCU SCH (09:22)
[2017-01-08] MEDS: IV SET AND CAP CHANGE INJ INJ SCH (09:29)
[2017-01-08] MEDS: HYDROcodone 5MG/APAP 325MG 1 EA TAB PO PRN (16:24)
[2017-01-08] MEDS: DEX 5% W/NACL 0.45% 1000ML 1,000 ML IVS PRN (17:52)
--- NOTE | 2017-01-08 18:52 | PN ---
DATE: 01/08/17 SUPERVISING PHYSICIAN: Phillip Tracy M.D. SUBJECTIVE: The patient is sitting in her hospital bed. She is assisted to her bed without any difficulty. She has no complaints of nausea, vomiting, diarrhea, abdominal pain, shortness of breath or chest pain. She has a J-P in place to the lower abdomen and it was removed without any problems. OBJECTIVE: VITAL SIGNS: She is afebrile, heart rate 78, blood pressure 173/70, respiratory rate 20, O2 sat is 91% on 2 liters nasal cannula. RESPIRATORY: Essentially clear to auscultation bilaterally. She is somewhat diminished at the bases. CARDIAC: Regular rate and rhythm. GASTROINTESTINAL: Abdomen is rounded. It is soft, non-tender. She has an abdominal binder in place. She has a dressing over the J-P insertion site, but at this point it is dry and intact. EXTREMITIES: No cyanosis, clubbing or edema. NEUROLOGIC: She is awake , alert and oriented times three. LABORATORY: Sodium 138, potassium 4.4, chloride 99, carbon dioxide 32, BUN 12, creatinine 0.75, glucose 116. White count is normal at 10.7, hemoglobin and hematocrit are 12.3 and 37. All other labs and films have been reviewed via the EMR. ASSESSMENT: 1. Postoperative day #10 for open appendectomy requiring extensive lavage and exploration for appendiceal removal performed by Dr. George, general surgeon. 2. History of acute abdominal pain secondary to the acute appendicitis with the patient initially demonstrating some degree of sepsis, but has shown improvement. 3. Possible postoperative ileus versus small bowel obstruction per radiologic interpretation. We will continue to monitor closely. 4. Constipation postoperatively and with multiple doses of Milk of Magnesia and laxatives has had two to three rather large bowel movements. We will continue to monitor. 5. Acute renal injury, now resolved. 6. History of congestive heart failure with last echocardiogram in 2004 with an ejection fraction of 75% with undetermined etiology. 7. Chronic tobacco use having quit cigarettes about 8 years ago and now uses E-cigarettes and vapors. 8. Moderate obesity. 9. Leukocytosis, stable at this time. 10. Hypoalbuminemia. 11. Urinary tract infection with positive leukocyte esterase and 4+ budding yeast. The patient is presently on Diflucan. PLAN: We will continue present supportive care. I have stopped her Merrem. She has had 10 days of antibiotic coverage. I will get 1 last set of labs for tomorrow and we will plan on discharging her from Acute Care tomorrow and readmitting her for Swing Bed for further strengthening and condition with Physical Therapy. Defer to Dr. George for surgical issues. At this point she is doing quite well clinically. We will continue to monitor closely and follow as needed. Dr. Tracy is the collaborating physician available for consultation. #[id number] [facility]
[2017-01-09] MEDS: HYDROcodone 5MG/APAP 325MG 1 EA TAB PO PRN ×3 (01:41→11:08)
[2017-01-09] MEDS: PANTOPRAZOLE SODIUM IV 40 MG VIAL IV SCH (06:28)
[2017-01-09] MEDS: ENOXAPARIN SODIUM 30 MG/0.3 ML SYG SUBCU SCH (08:13)
[2017-01-09] MEDS: FLUCONAZOLE 100 MG TAB PO SCH (08:13)
[2017-01-09] MEDS: BIFIDOBACTERIUM INFANTIS 4 MG CAP PO SCH (08:13)
[2017-01-09] MEDS: IPRATROPIUM/ALBUTEROL 3 ML VIAL NEB SCH ×2 (08:55→12:58)
[2017-01-09] MEDS ORDERED: FUROSEMIDE 40 MG TAB PO ONE (11:33)
[2017-01-09] MEDS ORDERED: POTASSIUM CHLORIDE 20 MEQ TAB PO ONE (11:35)
[2017-01-09] MEDS ORDERED: FUROSEMIDE INJ 40 MG/4 ML VIAL ONE (12:08)
[2017-01-09] MEDS ORDERED: FUROSEMIDE INJ 40 MG/4 ML VIAL IV ONE (12:08)
[2017-01-09] MEDS ORDERED: SODIUM CHLORIDE 0.9% (FLUSH) 10 ML SYG IV ONE (12:10)
[2017-01-09 13:24] VITALS: BP 125/52; TEMP 96.7
[2017-01-09 14:15] VITALS: O2SAT 100
[2017-01-10] MEDS ORDERED: PANTOPRAZOLE SODIUM TAB 40 MG PO SCH (06:30)
--- NOTE | 2017-01-10 18:17 | DS ---
SUPERVISING PHYSICIAN: Phillip Tracy M.D. DISCHARGE DIAGNOSIS: 1. Postoperative day #11 for open appendectomy with extensive lavage and exploration for appendiceal removal performed by Dr. George, general surgeon on 12/28/16. 2. History of past acute abdominal pain secondary to #1 requiring surgical intervention with the patient initially showing some degree of sepsis, but is becoming stable and improved prior to discharge from Acute Care with ongoing physical therapy and reconditioning needed to ensure the patient is safe at discharge. 3. Acute renal injury secondary to hypotensive event postoperatively having resolved with aggressive fluid management, diuretics and albumin showing a normalized baseline renal function at discharge from Acute Care. 4. History of congestive heart failure with echocardiogram in 2004 showing an ejection fraction of 75%. 5. Chronic tobacco use having quit 8 years previously with continued use of E-cigarettes and vapors with continued encouragement to stop smoking all devices. 6. Moderate obesity with a body mass index of 39.9. 7. Leukocytosis during Acte [facility] secondary to #1 becoming stable showing normalization prior to discharge. 8. Hypoalbuminemia, improved after albumin replacement and diet modification. 9. Urinary tract infection showing yeast secondary to extensive antibiotic coverage with the patient being treated with Diflucan. 10. Cholelithiasis without any evidence of cholecystitis as noted on CT findings on admission. 11. Findings of infrarenal aortic aneurysm that measured 3.6 cm. Recommended followup yearly with further CT as recommended by Radiology. Please see that report for full details. HISTORY OF PRESENT ILLNESS: Ms. Bonnie Saeed is a 76 year-old female patient that initially presented to the Emergency Room on 12/27/16 complaining of abdominal pain. She noted she had had some mild nausea and some mild diarrhea, but the pain had started Wednesday prior to admission and had worsened throughout the day. She noted that the pain was primarily down in the lower right quadrant. Laboratory studies in the Emergency Department showed she had a leukocytosis initially of 15.5 with a left shift. Radiographic studies were consistent with acute appendicitis with extensive surrounding phlegmon but no intraabdominal air was identified, although there was an air lucency identified at the level of the tip of the appendix which was poorly visualized secondary to motion artifact which was concerning for a possible focal perforation. She was admitted on 12/27/16 to the Medical/Surgical floor for a planned appendectomy. She had an appendectomy performed by Dr. George on for an acute gangrenous perforated rectocele appendix. She was taken back to the Medical/Surgical floor for recovery. She then had an episode of hypotension and decreased urine output, and shortly after recovery developed acute renal failure. Her laboratory studies followed showed a maximum white count of 20.6 with her renal function initially on admission showing BUN 12, creatinine 0.89. Shortly after surgery and the hypotensive event, she showed worsening renal function with creatinine maximizing to 4.41. She was treated aggressively with fluids, given 2 doses of Bumex and albumin over 2 days. Postoperatively she showed good improvement in her kidney function as well as laboratory studies. She was started on Zosyn in the Emergency Department and due to her renal function and deterioration, transitioned to Meropenem after consultation with Dr. Blackburn, Infectious Disease specialist. She was treated aggressively and showed good improvement in her renal function as well as her other laboratory studies with her white count normalizing on 01/01/17. The patient was advanced on her diet, was having bowel movements and was felt stable clinically enough to be discharged, but given that the patient had an extended hospitalization at time of discharge on 01/09/17, postoperative day 11 showing significant deconditioning and in need of physical therapy, the patient was then on recommendations from Physical Therapy admitted to Swing Bed for reconditioning and ongoing physical therapy. She did receive 10 days of antibiotics for total coverage with Meropenem. She also developed a urinary tract with a yeast infection secondary to extensive antibiotic coverage and was treated with Diflucan, but was clinically improved and on date of discharge felt well enough to be discharged to continue with extensive rehabilitation and reconditioning on Swing Bed. LABORATORY: Initially on admission, white count was 15.5. Postoperatively she did maximize to 20.6 and with treatment with Zosyn and transitioned to Meropenem , did show improvement in her white count and on 01/01/17 had normalized her white count, and by discharge white count was down to 10.2, hemoglobin stabilized at 11.6 and 35.0 with differential showing her to have a left shift. Platelet count remained stable and at discharge was 338,000. Coagulation studies showed initially a slightly elevated PT on admission. Repeat showed to be 12.4 with PTT of 30.4. Chemistries on admission showed normal electrolytes with potassium 3.6, glucose 125, magnesium 1.7 and was treated prior to surgery , normalized to 2.2. Liver functions showed a slight elevation in her total bilirubin, initially went up to 1.7 but this had normalized and at discharge was 0.5. AST was slightly elevated initially on admission to 45 but normalized shortly after admission and was at 20 on discharge. All other liver functions showed to be within normal limits. She had a slightly elevated BNP of 160 on admission and after aggressive fluid management did go up to 289, but prior to discharge was down to 270. Troponin on admission was less than 0.02. Electrolytes remained within normal limits and at discharge was showing normal electrolytes with potassium 3.6. She did show elevation of her BUN that went to a maximum of 66, but baseline creatinine on admission, BUN showed to be 12 at discharge after fluids. Albumin and Bumex had normalized and was 7 at discharge. Creatinine as well showed elevation to a maximum of 4.69 and after aggressive treatments did normalize and at discharge was 0.73. MICROBIOLOGY: Urine culture showed just heavy growth of budding yeast. She was treated with Diflucan. She had 4 sets of blood cultures that all remained negative at 5 days. RADIOLOGY: She had multiple x-rays. On admission, she had an initial x-ray abdominal series and per radiology interpretation showed no acute abnormalities. This was followed-up with an abdominal/pelvic CT with contrast and per radiology interpretation was findings compatible with acute appendicitis with extensive surrounding phlegmon. Please see that report for full details. There also was note of a large calculous within the gallbladder compatible with cholelithiasis and was note of a infrarenal aortic aneurysm that measured 3.6 cm. Chest x-ray initially showed per radiology interpretation atelectasis versus some chronic interstitial changes noted within the left upper lobe. This was followed-up with additional chest x-rays and on 12/30/16 two view chest x-ray showed continued atelectasis in left upper lobe with left lung base unchanged. She also had multiple abdominal x-rays post surgically on 01/05/17, fist abdominal series, showed interval surgical changes in the abdomen with surgical drain in place with findings suggestive of postoperative ileus versus partial distal small bowel obstruction. This is followed-up with additional abdominal x-rays and final abdominal x-ray on that showed bowel gas pattern with multiple dilated gas-filled small bowel loops in the mid abdomen with a small amount of stool and gas scattered throughout the colon. She also had a bladder ultrasound secondary to some bladder pain which was essentially nondiagnostic. No additional radiographic studies were completed. HOSPITAL COURSE: As noted above in the History of Present Illness, the patient was admitted on 12/27/16 for acute appendicitis. She was taken to surgery on by Dr. George and was recovered postoperatively. She had some complications secondary to hypotension which resulted in some decreased renal function and acute renal failure. She did receive aggressive treatment with IV fluids for possible sepsis secondary to considerations for perforation. She did well with IV antibiotics. She also showed improvement in her renal function with Bumex, albumin and normalized her renal function prior to discharge. She was having good urine output. She had been advanced to a mechanical soft diet and was having bowel movements, was no longer having abdominal pains. Her drain had been removed. Sutures had been removed prior to discharge and it was felt that the patient was clinically stable to be discharged, however given that she had a lengthy hospitalization and was significantly deconditioned, it was recommended by Physical Therapy that the patient be admitted to Swing Bed for ongoing continued physical therapy and reconditioning efforts to ensure the patient was safe at discharge. PLAN: The patient will be discharge from acute care and admitted to Swing Bed on the same day for ongoing continuation of physical therapy and further reconditioning. Diet at discharge was mechanical soft. All medications prior to discharge were resumed. No additional medications were added. She had finished a 10 day course of Meropenem. The only additional medication that was continued from hospitalization was 2 days worth of Diflucan for yeast infection. Condition at discharge was stable and improved. #[id number] [facility]
== END 2017-01-09 13:31 | disposition swing bed (61) | DRG 853 ==
LOC: ER 17:21 → MS 12-28 01:01
PROVIDERS: ADMIT Nurse Practitioner Family; ATTEND Nurse Practitioner Family
PROC: BW21YZZ Computerized Tomography (CT Scan) of Abdomen and Pelvis using Other Contrast (ICD-10-PCS; 2016-12-27)
PROC: 0DTJ0ZZ Resection of Appendix, Open Approach (ICD-10-PCS; principal; 2016-12-28)
PROC: 0DJD4ZZ Inspection of Lower Intestinal Tract, Percutaneous Endoscopic Approach (ICD-10-PCS; 2016-12-28)
DX: A41.9 Sepsis, unspecified organism (principal); K35.2 Acute appendicitis with generalized peritonitis; N17.0 Acute kidney failure with tubular necrosis; B37.49 Other urogenital candidiasis; K56.7 Ileus, unspecified; R57.9 Shock, unspecified; I50.9 Heart failure, unspecified; F17.290 Nicotine dependence, other tobacco product, uncomplicated; E66.9 Obesity, unspecified; E88.09 Other disorders of plasma-protein metabolism, not elsewhere classified; K80.20 Calculus of gallbladder without cholecystitis without obstruction; I71.4 Abdominal aortic aneurysm, without rupture; T36.95XA Adverse effect of unspecified systemic antibiotic, initial encounter; Y92.230 Patient room in hospital as the place of occurrence of the external cause; J44.9 Chronic obstructive pulmonary disease, unspecified; I11.0 Hypertensive heart disease with heart failure; K59.00 Constipation, unspecified; Z53.31 Laparoscopic surgical procedure converted to open procedure; Z79.52 Long term (current) use of systemic steroids; Z68.39 Body mass index [BMI] 39.0-39.9, adult; Z88.5 Allergy status to narcotic agent; Z79.899 Other long term (current) drug therapy

== ENCOUNTER 2017-01-09 13:50 | Inpatient (IN) | payer MEDICARE, OTHER ==
[2017-01-09] MEDS ORDERED: DEXTROSE 50% 25 GM/50 ML SYG IV PRN (14:59)
[2017-01-09] MEDS ORDERED: GLUCAGON INJ 1 MG VIAL SUBCU PRN (14:59)
[2017-01-09] MEDS ORDERED: ACETAMINOPHEN 500 MG TAB PO PRN (14:59)
[2017-01-09] MEDS ORDERED: MAGNESIUM HYDROXIDE 30 ML UD PO PRN (14:59)
[2017-01-09] MEDS ORDERED: SODIUM PHOS/BIPHOS ENEMA ADULT 133 ML BTTL PR PRN (14:59)
[2017-01-09] MEDS ORDERED: INSULIN LISPRO 100 UNITS/ML PEN SUBCU SCH (16:30)
[2017-01-09] MEDS ORDERED: POTASSIUM CHLORIDE 10 MEQ TAB PO ONE (19:55)
--- NOTE | 2017-01-09 19:56 | HP ---
CHIEF COMPLAINT: Swing Bed admission for strengthening and reconditioning. HISTORY OF PRESENT ILLNESS: Ms. Bonnie Saeed is a 76 year-old female patient who initially presented to the Emergency Room on 12/27/16 complaining of abdominal pain. She noted that she had had some mild nausea and some diarrhea, but the pain started Wednesday prior to admission and worsened throughout the day. She noted that the pain was primarily down in her lower right quadrant. Laboratory studies in the Emergency Department showed that she had a leukocytosis initially at 15.5 and a left shift. Radiographic studies were completed and included abdominal x-ray and CT with findings on CT per radiology interpretation consistent with acute appendicitis with extensive surrounding phlegmon but no intraabdominal air was identified. There was a air lucency identified at the level of the tip of the appendix which was poorly visualized secondary to motion artifact concerning for possible focal perforation. The patient was admitted on 12/27/16 to the Medical/Surgical floor for appendectomy. She had a surgical procedure on 12/28/16, laparoscopic appendectomy then advanced to an open appendectomy performed by Dr. George for an acute gangrenous perforated rectocele appendix. She was taken back to the Medical/Surgical floor for recovery. She had an episode of hypotension shortly after recovery and developed acute renal failure. Her laboratory studies showed a maximum white count of 20.6 with renal function initially on admission showing BUN 12, creatinine 0.89 shortly after surgery and hypotensive event. The patient showed worsening renal function with creatinine maximizing to 4.41. She was treated aggressively with fluids, given 2 doses of Bumex and albumin over 2 days postoperatively and did show improvement in her kidney function as well as her laboratory studies. She initially was started on Zosyn in the Emergency Department. This was continued until the renal function deteriorated after which she was transitioned to Meropenem at the recommendation of Dr. Blackburn , Infectious Disease specialist. The patient was treated aggressively and showed good improvement in her renal function as well as her other laboratory studies with her white count normalizing on 01/01/17. The patient was advanced on her diet, was having bowel movements and was felt stable clinically enough to be discharged, however given that the patient had extended hospitalization being on discharge date of 01/09/17 postoperative day 11, the patient was significantly deconditioned and physical therapy recommendations were for the patient to be admitted to Swing Bed for reconditioning and continued physical therapy. She did receive 10 days total of antibiotic coverage with Meropenem. She had also developed a urinary tract infection with yeast infection secondary to extensive antibiotic coverage and was started on Diflucan, but was clinically improved therefore the patient is in need of extensive rehabilitation and reconditioning, and will be admitted to Swing Bed. PAST MEDICAL HISTORY: 1. Chronic obstructive pulmonary disease. 2. Congestive heart failure with last echocardiogram in 2004 showing an ejection fraction 75% with a normal systolic function. 3. Tobacco abuse using E-cigarette. PAST SURGICAL HISTORY: 1. Recent open appendectomy as noted above. 2. section. 3. Bilateral tubal ligation. HOME MEDICATIONS: Please refer to the electronic medical records for the current list of medications. ALLERGIES: CODEINE. FAMILY HISTORY: Mother is from Alzheimer's dementia at age 85. There is also a history of obstructive pulmonary disease. Father at age 70 from lung cancer. She has no siblings. SOCIAL HISTORY: The patient has smoked approximately 1-1/2 to 2 packs per day for over 45 years but quit smoking 6 years previously. She currently does use E -cigarettes on admission. She denies any alcohol abuse. 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 REVIEW OF SYSTEMS: No fever or chills. The patient has been afebrile. HEENT: No vision changes. She is [id number] . No nasal congestion. CARDIOVASCULAR: She denied any chest pains, palpitations. She did have an episode of hypotension which resolved after IV fluids postoperatively. RESPIRATORY: Denies any cough, shortness of breath or wheezing. Does have some exertional dyspnea secondary to deconditioning. GASTROINTESTINAL: As noted in the history of present illness. GENITOURINARY: As noted in the history of present illness, but denies any dysuria or hematuria. NEUROLOGIC: She has not had any headaches, numbness or paresthesias and remains alert without any obvious neuromotor deficits. PHYSICAL EXAMINATION: VITAL SIGNS: On admission to [facility] Bed, temperature 97.4, pulse 77, blood pressure 125/52, respirations 18, satting 95% on 2 liters nasal cannula. Admission weight is 99.0 kg. GENERAL: On admission to [facility], the patient is in no acute distress. She has good pain control. HEENT: Tympanic membranes are clear bilaterally. Oropharynx is pink and moist without any lesions. NECK: Supple, non-tender with full range of motion. No jugular venous distention. CHEST: Lungs are clear to auscultation but diminished toward bases bilaterally. There were no rhonic, rales or wheezing noted CARDIOVASCULAR: Regular rate and rhythm without appreciable murmurs, gallops, or rubs. ABDOMEN: Obese but soft. Slightly tender just over the incisional sites. J-P drain has been discontinued. Incision nicol have been removed. Wounds appear to be healing well by secondary intention with no obvious signs of infection. EXTREMITIES: No cyanosis or clubbing, but there is 2+ pitting edema bilaterally. NEUROLOGIC: She is alert and oriented times three. LABORATORY: Admission CBC, CMP, chest x-ray and urinalysis are pending. RADIOLOGY: Chest x-ray is pending. ASSESSMENT: 1. Postoperative day #11 for open appendectomy with extensive lavage and exploration for an appendiceal removal that was performed by Dr. George, general surgeon on 12/28/16. 2. History of past acute abdominal pain secondary to #1 requiring surgical intervention with the patient initially showing some degree of sepsis but shown to be stable and improved prior to discharge from Acute Care to Swing Bed showing significant deconditioning and weakness requiring ongoing continued physical therapy for reconditioning to ensure that she is safe once discharged home. 3. Acute renal injury secondary to hypotensive event postoperatively resolved after aggressive fluid management, diuretics and albumin now showing normalized baseline renal function. 4. History of congestive heart failure with last echocardiogram in 2004 that was last noted to have an ejection fraction of 75%. 5. Chronic tobacco abuse having quit 8 years previously with continued use of E-cigarettes and vapors. Continues to be encouraged to stop utilizing all smoking devices. 6. Moderate obesity with a body mass index of 39.9. 7. Leukocytosis secondary to number 1 showing to be stable by discharge and improved. 8. Hypoalbuminemia improved after albumin replacement and diet modification. 9. Urinary tract infection with 4+ budding yeast secondary to extensive antibiotic coverage with the patient currently on Diflucan at time of discharge showing improvement. PLAN: The patient will be admitted to Swing Bed for continuation of rehabilitation and physical therapy for reconditioning. Will continue to follow the patient as she progresses through her recovery in Swing Bed as well as defer other surgical issues and ongoing treatment per Dr. George. She will be continued on a diet that includes mechanical soft diet. She will have Physical Therapy consultation. Will resume her home medications once they have been updated and verified in the electronic medical records. Will also give her additional doses today on admission of Lasix to help with her lower extremity edema. Will encourage deep breathing exercises and provide pulmonary hygiene and ongoing DuoNeb treatments as needed. She will be encouraged to ambulate. Will start her on Lovenox for DVT prophylaxis. Will anticipate at least 3 to 5 days length of stay. Until discharge, will continue to follow the patient closely and treat appropriately. #[id number] [facility]
[2017-01-09] MEDS: HYDROcodone 5MG/APAP 325MG 1 EA TAB PO PRN (20:25)
[2017-01-09] MEDS ORDERED: NON-FORMULARY MEDICATION 1 EA MIS (Potassium Chloride [Micro-K] 10 MEQ) PO SCH (21:00)
[2017-01-09] MEDS: TEMAZEPAM 15 MG CAP PO PRN (21:59)
[2017-01-09] MEDS: ALUM & MAG HYDROX-SIMETHICONE 30 ML UD PO PRN (22:14)
--- NOTE | 2017-01-09 23:43 | PCM.CORE ---
Physician DVT/VTE - Nurse DVT Assessment & Total Each Risk Factor Represents 2 Points: Age 60-74 Each Risk Factor Represents 1 Point: Hx of smoking past year Each Risk Factor is 1 Point: Varicose Veins/Edema Legs, Obesity (BMI >25) DVT Assessment Score: 5 - 5 or more Very High Risk Treatments: Early Ambulation *, Sequential Compression Device Pharmacological: Enoxaparin 40mg SQ Daily
[2017-01-09] MEDS ORDERED: ENOXAPARIN SODIUM 40 MG/0.4 ML SYG SUBCU SCH (23:45)
[2017-01-10] MEDS: HYDROcodone 5MG/APAP 325MG 1 EA TAB PO PRN ×2 (04:08→08:11)
[2017-01-10] MEDS: PANTOPRAZOLE SODIUM TAB 40 MG PO SCH (05:41)
[2017-01-10] MEDS: ALBUTEROL SULFATE 2.5 MG/3 ML VIAL NEB PRN (06:53)
--- NOTE | 2017-01-10 07:30 | RAD ---
EXAM: Two view chest. INDICATION: Cough. COMPARISON: Chest x-ray: 12/30/2016. FINDINGS: Cardiac silhouette: Unremarkable. Saranya: Unremarkable. Lobar consolidation: None. Pleural effusion: None. Pneumothorax: None. Other: None. Bones: Unremarkable. Other: None. IMPRESSION: 1. No acute cardiopulmonary process. Electronically signed by: Adán Vaz MD 01/10/2017 7:29 AM CDT Workstation: [id number]
[2017-01-10] MEDS ORDERED: POTASSIUM CHLORIDE 10 MEQ TAB PO ONE ×2 (07:35→15:37)
[2017-01-10] MEDS ORDERED: DOCUSATE SODIUM 100 MG CAP ONE (07:35)
[2017-01-10] MEDS: DOCUSATE SODIUM 100 MG CAP PO SCH (08:29)
[2017-01-10] MEDS: FLUCONAZOLE 100 MG TAB PO SCH (08:30)
[2017-01-10] MEDS: BIFIDOBACTERIUM INFANTIS 4 MG CAP PO SCH (08:30)
[2017-01-10] MEDS: FUROSEMIDE 40 MG TAB PO SCH ×3 (08:33→17:56)
[2017-01-10] MEDS ORDERED: MULTIPLE VITAMIN 1 EA TAB PO ONE (08:36)
[2017-01-10] MEDS: MULTIPLE VITAMINS W/ MINERALS 1 EA TAB PO SCH (08:39)
[2017-01-10] MEDS: DULERA INH SCH ×3 (08:59→21:37)
[2017-01-10] MEDS: TIOTROPIUM INHALER INH SCH (09:00)
[2017-01-10] MEDS ORDERED: ENOXAPARIN SODIUM 40 MG/0.4 ML SYG SUBCU SCH (09:00)
[2017-01-10] MEDS: POTASSIUM CHLORIDE 10 MEQ TAB PO SCH (17:58)
[2017-01-10] MEDS ORDERED: ENOXAPARIN SODIUM 40 MG/0.4 ML SYG SUBCU ONE (19:45)
[2017-01-10] MEDS: ENOXAPARIN SODIUM 40 MG/0.4 ML SYG SUBCU SCH (20:49)
[2017-01-11] MEDS: ALBUTEROL SULFATE 2.5 MG/3 ML VIAL NEB PRN ×2 (00:06→05:17)
[2017-01-11] MEDS: PANTOPRAZOLE SODIUM TAB 40 MG PO SCH (06:30)
[2017-01-11] MEDS: POTASSIUM CHLORIDE 10 MEQ TAB PO SCH ×2 (07:54→16:52)
[2017-01-11] MEDS: FLUCONAZOLE 100 MG TAB PO SCH (09:21)
[2017-01-11] MEDS: MULTIPLE VITAMINS W/ MINERALS 1 EA TAB PO SCH (09:21)
[2017-01-11] MEDS: FUROSEMIDE 40 MG TAB PO SCH ×2 (09:21→16:51)
[2017-01-11] MEDS: DOCUSATE SODIUM 100 MG CAP PO SCH (09:21)
[2017-01-11] MEDS: BIFIDOBACTERIUM INFANTIS 4 MG CAP PO SCH (09:21)
[2017-01-11] MEDS: HYDROcodone 5MG/APAP 325MG 1 EA TAB PO PRN (10:46)
[2017-01-11] MEDS: DULERA INH SCH (19:53)
[2017-01-11] MEDS: ENOXAPARIN SODIUM 40 MG/0.4 ML SYG SUBCU SCH (20:53)
[2017-01-12] MEDS: PANTOPRAZOLE SODIUM TAB 40 MG PO SCH (06:00)
[2017-01-12] MEDS: POTASSIUM CHLORIDE 10 MEQ TAB PO SCH ×2 (08:30→17:18)
[2017-01-12] MEDS: DOCUSATE SODIUM 100 MG CAP PO SCH (08:41)
[2017-01-12] MEDS: MULTIPLE VITAMINS W/ MINERALS 1 EA TAB PO SCH (08:42)
[2017-01-12] MEDS: BIFIDOBACTERIUM INFANTIS 4 MG CAP PO SCH (08:42)
[2017-01-12] MEDS: FUROSEMIDE 40 MG TAB PO SCH ×2 (08:42→17:18)
[2017-01-12] MEDS: DULERA INH SCH ×3 (08:50→19:34)
[2017-01-12] MEDS: TIOTROPIUM INHALER INH SCH ×2 (09:15→09:45)
--- NOTE | 2017-01-12 13:33 | PN ---
SUPERVISING PHYSICIAN: Hal Shannon MD DATE: 01/12/17 SUBJECTIVE: The patient is sitting up in her chair in her hospital room. She has no complaints of shortness of breath, nausea, vomiting, diarrhea. She actually states she had a bowel movement on her own this morning. She does complain of some mild swelling in her ankles, but she does better if her legs are elevated. OBJECTIVE: VITAL SIGNS: Temperature 97.8. Pulse 81. Blood pressure 131/67. Respiratory rate 16. O2 sat 95% on 2 liters nasal cannula. LUNGS: Clear to auscultation bilaterally. CARDIAC: Regular rate and rhythm. ABDOMEN: Soft, nontender, nondistended. Bowel sounds are positive. EXTREMITIES: There is a trace of edema to her bilateral lower extremities. Pulses are palpable bilaterally at +2. NEUROLOGIC: Awake, alert and oriented times three. LABORATORY: There are no labs and films to report at this time. ASSESSMENT: 1. Postoperative day #14 for open appendectomy with extensive lavage and exploration for an appendiceal removal that was performed by Dr. George, general surgeon, on 12/28/16. 2. History of past acute abdominal pain secondary to #1 requiring surgical intervention with the patient initially showing some degree of sepsis but shown to be stable and improved prior to discharge from Acute Care to Swing Bed showing significant deconditioning and weakness requiring ongoing continued physical therapy for reconditioning to ensure that she is safe once discharged home. 3. Acute renal injury secondary to hypotensive event postoperatively resolved after aggressive fluid management, diuretics and albumin now showing normalized baseline renal function. 4. History of congestive heart failure with last echocardiogram in 2004 that was last noted to have an ejection fraction of 75%. 5. Chronic tobacco abuse having quit 8 years previously with continued use of E-cigarettes and vapors. Continues to be encouraged to stop utilizing all smoking devices. 6. Moderate obesity with a body mass index of 39.9. 7. Leukocytosis secondary to number 1 showing to be stable by discharge and improved. 8. Hypoalbuminemia improved after albumin replacement and diet modification. 9. Urinary tract infection with 4+ budding yeast secondary to extensive antibiotic coverage with the patient currently on Diflucan at time of discharge showing improvement. PLAN: We will continue present supportive care. Hopefully if Dr. George is agreeable, she can be discharged home tomorrow. She is to continue strengthening and conditioning with physical therapy. Encourage good bronchial hygiene. We will continue to monitor the patient closely and follow as needed. Dr. Shannon is the collaborating physician and available for consultation. #[id number] [facility]
[2017-01-12] MEDS: HYDROcodone 5MG/APAP 325MG 1 EA TAB PO PRN (18:51)
[2017-01-12] MEDS: ENOXAPARIN SODIUM 40 MG/0.4 ML SYG SUBCU SCH (21:12)
[2017-01-13] MEDS: TEMAZEPAM 15 MG CAP PO PRN (00:27)
[2017-01-13] MEDS: ALUM & MAG HYDROX-SIMETHICONE 30 ML UD PO PRN (02:12)
[2017-01-13] MEDS: PANTOPRAZOLE SODIUM TAB 40 MG PO SCH (05:49)
[2017-01-13] MEDS: POTASSIUM CHLORIDE 10 MEQ TAB PO SCH (08:15)
[2017-01-13] MEDS: MULTIPLE VITAMINS W/ MINERALS 1 EA TAB PO SCH (08:52)
[2017-01-13] MEDS: DOCUSATE SODIUM 100 MG CAP PO SCH (08:52)
[2017-01-13] MEDS: BIFIDOBACTERIUM INFANTIS 4 MG CAP PO SCH (08:52)
[2017-01-13] MEDS: FUROSEMIDE 40 MG TAB PO SCH (08:52)
[2017-01-13] MEDS: DULERA INH SCH (08:55)
[2017-01-13] MEDS: TIOTROPIUM INHALER INH SCH (08:55)
[2017-01-13 10:46] VITALS: BP 114/70; TEMP 96.8; O2SAT 96
--- NOTE | 2017-01-13 11:32 | DS ---
SUPERVISING PHYSICIAN: Hal Shannon MD DISCHARGE DIAGNOSIS: 1. Postoperative day #15 for open appendectomy with extensive lavage and exploration for an appendiceal removal that was performed by Dr. George, general surgeon, on 12/28/16. 2. Admission to Swing Bed status post appendectomy for strengthening and conditioning due to weakness after surgical intervention. 3. History of past acute abdominal pain secondary to #1 requiring surgical intervention with the patient initially showing some degree of sepsis but shown to be stable and improved prior to discharge from Acute Care to Swing Bed showing significant deconditioning and weakness requiring ongoing continued physical therapy for reconditioning to ensure that she is safe once discharged home. 4. Acute renal injury secondary to hypotensive event postoperatively resolved after aggressive fluid management, diuretics and albumin now showing normalized baseline renal function. 5. History of congestive heart failure with last echocardiogram in 2004 that was last noted to have an ejection fraction of 75%. 6. Chronic tobacco abuse having quit 8 years previously with continued use of E-cigarettes and vapors. Continues to be encouraged to stop utilizing all smoking devices. 7. Moderate obesity with a body mass index of 39.9. 8. Leukocytosis secondary to number 1 showing to be stable by discharge and improved. 9. Hypoalbuminemia improved after albumin replacement and diet modification. 10. Urinary tract infection with budding on culture, treated with a course of Diflucan. HISTORY OF PRESENT ILLNESS: Ms. Bonnie Saeed is a 76 year-old female patient who initially presented to the Emergency Room on 12/27/16 complaining of abdominal pain. She noted that she had had some mild nausea and some diarrhea, but the pain started Wednesday prior to admission and worsened throughout the day. She noted that the pain was primarily down in her lower right quadrant. Laboratory studies in the Emergency Department showed that she had a leukocytosis initially at 15.5 and a left shift. Radiographic studies were completed and included abdominal x-ray and CT with findings on CT per radiology interpretation consistent with acute appendicitis with extensive surrounding phlegmon but no intraabdominal air was identified. There was a air lucency identified at the level of the tip of the appendix which was poorly visualized secondary to motion artifact concerning for possible focal perforation. The patient was admitted on 12/27/16 to the Medical/Surgical floor for appendectomy. She had a surgical procedure on 12/28/16, laparoscopic appendectomy then advanced to an open appendectomy performed by Dr. George for an acute gangrenous perforated rectocele appendix. She was taken back to the Medical/Surgical floor for recovery. She had an episode of hypotension shortly after recovery and developed acute renal failure. Her laboratory studies showed a maximum white count of 20.6 with renal function initially on admission showing BUN 12, creatinine 0.89 shortly after surgery and hypotensive event. The patient showed worsening renal function with creatinine maximizing to 4.41. She was treated aggressively with fluids, given 2 doses of Bumex and albumin over 2 days postoperatively and did show improvement in her kidney function as well as her laboratory studies. She initially was started on Zosyn in the Emergency Department. This was continued until the renal function deteriorated after which she was transitioned to Meropenem at the recommendation of Dr. Blackburn , Infectious Disease specialist. The patient was treated aggressively and showed good improvement in her renal function as well as her other laboratory studies with her white count normalizing on 01/01/17. The patient was advanced on her diet, was having bowel movements and was felt stable clinically enough to be discharged, however given that the patient had extended hospitalization being on discharge date of 01/09/17 postoperative day 11, the patient was significantly deconditioned and physical therapy recommendations were for the patient to be admitted to Swing Bed for reconditioning and continued physical therapy. She did receive 10 days total of antibiotic coverage with Meropenem. She had also developed a urinary tract infection with yeast infection secondary to extensive antibiotic coverage and was started on Diflucan, but was clinically improved therefore the patient is in need of extensive rehabilitation and reconditioning, and will be admitted to Swing Bed. HOSPITAL COURSE: The patient progressed very well with her strengthening and conditioning with physical therapy during Swing Bed admission. She was able to ambulate without her walker. She had no further complications with her abdominal pain or constipation. She can be discharged home today. DISCHARGE PLAN: The patient will be discharged home in stable condition. She can resume her activity as tolerated. Her diet is as per Dr. George's instructions. She is to return to the hospital, Dr. George's office, or Dr. Leroy 's office for any further complications. She has a followup appointment with Dr. George on 01/27/17 at 11 AM. She has a followup with her primary care physician, Dr. Leroy, on 01/21/17 at 9:30 AM. DISCHARGE MEDICATIONS: 1. Potassium chloride. 2. Dulara. 3. Spiriva. 4. ProAir. 5. Align. 6. DuoNeb. 7. Pantoprazole. 8. Furosemide. 9. Mult[address]amins. Dr. Shannon is the collaborating physician and available for consultation. #[id number] [facility]
== END 2017-01-13 12:45 | disposition home or self-care (01) | DRG 948 ==
LOC: MS 13:50
PROVIDERS: ADMIT Nurse Practitioner Family; ATTEND Nurse Practitioner Family
DX: R53.1 Weakness (principal); B37.49 Other urogenital candidiasis; I50.9 Heart failure, unspecified; J44.9 Chronic obstructive pulmonary disease, unspecified; F17.290 Nicotine dependence, other tobacco product, uncomplicated; E66.9 Obesity, unspecified; Z88.5 Allergy status to narcotic agent; Z68.39 Body mass index [BMI] 39.0-39.9, adult; Z90.49 Acquired absence of other specified parts of digestive tract

== ENCOUNTER → 2017-08-24 | Outpatient (CLI) | payer MEDICARE, OTHER | END | disposition home or self-care (01) | LOC: GMAB 11:41 | PROVIDERS: ATTEND Family Medicine | DX: I10 Essential (primary) hypertension (principal) ==

== ENCOUNTER 2018-05-08 11:21 | Inpatient (IN) | payer MEDICARE, OTHER ==
[2018-05-08] MEDS ORDERED: IPRATROPIUM/ALBUTEROL 3 ML VIAL NEB ONE ×2 (11:30→11:47)
[2018-05-08] MEDS ORDERED: cefTRIAXone SODIUM 1 GM in SODIUM CHL 0.9% 50ML MIN-BAG+ 50 ML IVPB ONE (11:31)
[2018-05-08] MEDS ORDERED: methylPREDNISolone SODIUM SUC 125 MG/2 ML VIAL IV ONE (11:31)
[2018-05-08] MEDS ORDERED: AZITHROMYCIN IV 500 MG in SODIUM CHLORIDE 0.9% 250ML 250 ML IVPB ONE (11:31)
[2018-05-08] MEDS ORDERED: SODIUM CHLORIDE 0.9% 250ML 250 ML ONE (11:32)
[2018-05-08] MEDS ORDERED: AZITHROMYCIN IV 500 MG VIAL IVPB ONE (11:32)
[2018-05-08] MEDS ORDERED: SODIUM CHL 0.9% 50ML MIN-BAG+ 50 ML IVPB ONE (11:32)
[2018-05-08] MEDS ORDERED: cefTRIAXone SODIUM 1 GM VIAL ONE (11:32)
--- NOTE | 2018-05-08 11:37 | ED.PDOC ---
History of Present Illness - General Chief Complaint: Respiratory Problem Stated Complaint: shortness of breath Time Seen by Provider: 05/08/18 11:29 Source: patient, family Exam Limitations: no limitations - History of Present Illness Initial Comments: patient comes in today with shortness of breath. Patient has a long history of COPD and is oxygen dependent. Since Wednesday she's had increased trouble breathing, tightness of her chest, and wheezing. She is increase her breathing treatments with albuterol but has not helped. She does state that she's had some subjective fever, purulent cough, and congestion. Patient has no other past medical history and her only allergies to codeine. She has a greater than [id number] history but quit 6 years ago and changed to the E-cigarette. Timing/Duration: getting worse, other - since Wednesday Severity: severe Activities at Onset: rest Possible Cause: frequent episodes Improving Factors: nothing Worsening Factors: movement Associated Symptoms: cough, fever, weakness Respiratory Risk Factors: no cause identified Allergies/Adverse Reactions: Allergies Codeine Allergy (Unknown, Verified 12/27/16 17:47) Home Medications: Ambulatory Orders Dulera 100-5 Mcg/Act 2 puff INH BID 02/29/16 Potassium Chloride [Micro-K] 10 meq PO BID 02/29/16 Proair Hfa 1 - 2 puff INH .Q4-6H 02/29/16 Tiotropium Montgomery Monohydrate [Spiriva Handihaler] 1 puff INH DAILY 02/29/16 Bifidobacterium Infantis [Align] 4 mg PO DAILY 01/09/17 Furosemide Tab [Lasix Tab] 40 mg PO QD@0900,1700 01/09/17 Ipratropium/Albuterol [Duoneb] 3 ml NEB RTQID 01/09/17 Multiple Vitamins W/ Minerals [Centrum Adults] 1 tab PO DAILY 01/09/17 Review of Systems - Review of Systems Constitutional: States: chills, fever, malaise EENTM: States: nose congestion. Denies: eye pain, ear pain, throat pain Respiratory: States: cough, short of breath, wheezing Cardiology: States: chest pain. Denies: edema, palpitations Gastrointestinal/Abdominal: States: no symptoms reported. Denies: abdominal pain, diarrhea, nausea, vomiting Genitourinary: States: no symptoms reported Musculoskeletal: States: no symptoms reported Skin: States: no symptoms reported Neurological: States: no symptoms reported Past Medical History (General) - Patient Medical History Hx Seizures: No Hx Stroke: No Hx Asthma: No Hx of COPD: Yes Hx Congestive Heart Failure: No Hx Pacemaker: No Hx Hypertension: No Hx Diabetes: No Hx MRSA: No - Vaccination History Hx Influenza Vaccination: Yes Hx Pneumococcal Vaccination: Yes - Social History Hx Tobacco Use: No Hx Alcohol Use: No Hx Substance Use: No Hx Substance Use Treatment: No Hx Physical Abuse: No Hx Emotional Abuse: No - Female History Patient : No Family Medical History - Family History Mother Living Status: Age at (years of age): 86 Cause of : old age Hx Family Asthma: No Hx Family Congestive Heart Failure: No Hx Family Hypertension: Yes Hx Family Stroke: No Hx Cardiac Disease: No Hx Family Diabetes: No Hx Family Cancer: Yes - Breast cancer Father Living Status: Age at (years of age): 80 Cause of : Cancer Hx Family Asthma: No Hx Family Congestive Heart Failure: No Hx Family Hypertension: No Hx Family Stroke: No Hx Cardiac Disease: No Hx Family Diabetes: No Hx Family Cancer: Yes - Lung Cancer Physical Exam - Physical Exam General Appearance: Alert, Obvious distress Eyes, Ears, Nose, Throat Exam: PERRL/EOMI, normal ENT inspection, TMs normal, pharynx normal Neck: non-tender, full range of motion, supple, normal inspection Respiratory: decreased breath sounds - tight BS with limited air flow, wheezing Cardiovascular/Chest: normal peripheral pulses, regular rate, rhythm, no edema, no murmur Peripheral Pulses: radial,right: 2+, radial,left: 2+ Gastrointestinal/Abdominal: normal bowel sounds, non tender, soft Extremity: non-tender, normal inspection Neurologic: no motor/sensory deficits, alert, oriented x 3 Progress - Results/Orders Results/Orders: 05/08/18 11:31 Azithromycin IV [Zithromax IV] 500 mg Sodium Chloride 0.9% 250Ml [NS 250ml] 250 ml IVPB ONCE 05/08/18 11:58 SPUTUM CULTURE Stat Laboratory Results WBC 11.7 K/mm3 (4.8-10.8) H 05/08/18 12:29 RBC 4.16 M/mm3 (4.20-5.40) L 05/08/18 12:29 Hgb 12.7 gm/dL (12.0-16.0) 05/08/18 12:29 Hct 38.8 % (36.0-47.0) 05/08/18 12:29 MCV 93.4 fl (81.0-99.0) 05/08/18 12:29 MCH 30.5 pg (27.0-31.0) 05/08/18 12:29 MCHC 32.6 g/dL (33.0-37.0) L 05/08/18 12:29 RDW 13.6 % (11.5-14.5) 05/08/18 12:29 Plt Count 252 K/mm3 (130-400) 05/08/18 12:29 MPV 8.6 fl (7.40-10.4) 05/08/18 12:29 Absolute Neuts (auto) 9.70 K/uL (1.8-6.8) H 05/08/18 12:29 Absolute Lymphs (auto) 0.80 K/uL (1.0-3.4) L 05/08/18 12:29 Absolute Monos (auto) 1.10 K/uL (0.2-0.8) H 05/08/18 12:29 Absolute Eos (auto) 0.00 K/uL (0.0-0.4) 05/08/18 12:29 Absolute Basos (auto) 0.00 K/uL (0.0-0.1) 05/08/18 12:29 Neutrophils % 83.2 % (42.0-78.0) H 05/08/18 12:29 Lymphocytes % 7.0 % (20.0-50.0) L 05/08/18 12:29 Monocytes % 9.7 % (2.0-9.0) H 05/08/18 12:29 Eosinophils % 0.0 % (1.0-5.0) L 05/08/18 12:29 Basophils % 0.1 % (0.0-2.0) 05/08/18 12:29 pCO2 53 mmHg (32-45) H 05/08/18 11:45 pO2 90 mmHg (83-108) 05/08/18 11:45 HCO3 27.9 mmol/L 05/08/18 11:45 ABG pH 7.340 (7.35-7.45) L 05/08/18 11:45 ABG O2 Saturation 97.5 % (95.0-99.0) 05/08/18 11:45 ABG Base Excess 1.8 mmol/L 05/08/18 11:45 ABG Deoxyhemoglobin 2.4 % (0.0-5.0) 05/08/18 11:45 Oxyhemoglobin % 95.7 % (94.0-98.0) 05/08/18 11:45 Carboxyhemoglobin % 0.2 % (0.5-1.5) L 05/08/18 11:45 Methemoglobin % Sat 1.7 % (0.0-1.5) H 05/08/18 11:45 Calc Total Hemoglobin 12.3 g/dL (12.0-16.0) 05/08/18 11:45 Sodium 135 mmol/L (135-145) 05/08/18 12:29 Potassium 4.3 mmol/L (3.6-5.0) 05/08/18 12:29 Chloride 96 mmol/L (101-111) L 05/08/18 12:29 Carbon Dioxide 29 mmol/L (21-31) 05/08/18 12:29 Anion Gap 14.3 (12-18) 05/08/18 12:29 BUN 21 mg/dL (7-18) H 05/08/18 12:29 Creatinine 0.85 mg/dL (0.6-1.3) 05/08/18 12:29 BUN/Creatinine Ratio 24.7 (10-20) H 05/08/18 12:29 Random Glucose 134 mg/dL (70-105) H 05/08/18 12:29 Serum Osmolality 275.0 mOsm/L (275-295) 05/08/18 12:29 Lactic Acid 1.2 mmol/L (0.5-2.2) 05/08/18 12:29 Calcium 9.2 mg/dL (8.4-10.2) 05/08/18 12:29 Total Bilirubin 1.5 mg/dL (0.2-1.0) H 05/08/18 12:29 AST 22 IU/L (10-42) 05/08/18 12:29 ALT 27 IU/L (10-60) 05/08/18 12:29 Alkaline Phosphatase 128 IU/L (42-121) H 05/08/18 12:29 Serum Total Protein 7.4 gm/dL (6.4-8.2) 05/08/18 12:29 Albumin 3.5 g/dl (3.2-5.5) 05/08/18 12:29 Globulin 3.9 gm/dL (2.3-3.5) H 05/08/18 12:29 Albumin/Globulin Ratio 0.9 (1.1-1.9) L 05/08/18 12:29 Patient Name: PARESH SANDY Gender: Female Date of : December 13, 1949 Referring Physician: LORRIE LOUIS Organization: [facility] Accession Number: [id number] Requested Date: May 08, 2018 12:14 Report Status: Final Requested Procedure: 1 Procedure Description: CTA Chest Modality: CT Findings Reporting MD: Chuck Corona Fellow MD: Not available Dictation Time: Data Warehouse Manager: Not available School Attendance Secretary Date: CLINICAL HISTORY: shortness of breath, elevated d-dimer COMPARISON: September 08, 2016. TECHNIQUE: CT CHEST ANGIOGRAPHY WITH IV CONTRAST on 05/08/2018 12:14 PM CLERK ENTRY LEVEL. MIPS reconstructions were generated. This exam was performed according to our departmental dose-optimization program, which includes automated exposure control, adjustment of the mA and/or kV according to patient size and/or use of iterative reconstruction technique. MIP images were generated. FINDINGS: Thoracic aorta is normal in course and caliber without aneurysm or dissection. Pulmonary arteries are adequately opacified without acute or chronic filling defects. The heart is mildly enlarged. Left dual-chamber pacemaker is present. There is no pericardial effusion. There are several small right hilar lymph nodes measuring up to 9 mm. Mediastinal lymph nodes are all under 1 cm. There is an intrafissural lymph node in the minor fissure measuring 5 mm. There is no pleural effusion, pleural thickening or pneumothorax. Central airways are patent. There is minimal right basilar airspace disease. There are no acute abnormalities within the limited images of the upper abdomen. There are no acute osseous findings. No suspicious bony lesions. IMPRESSION: No aortic dissection or aneurysm. No pulmonary embolus. Cardiomegaly with minimal right basilar airspace disease. This could represent pneumonia or possibly atelectatic changes Departure - Departure Clinical Impression: Acute exacerbation of chronic obstructive airways disease Disposition: Admit Patient Condition: Fair Departure Forms: ED Discharge - Pt. Copy, Patient Portal Self Enrollment Referrals: JOANA WHITTAKER MD [Primary Care Provider] - 1-2 Weeks Home Medications: Ambulatory Orders Dulera 100-5 Mcg/Act 2 puff INH BID 02/29/16 Potassium Chloride [Micro-K] 10 meq PO BID 02/29/16 Proair Hfa 1 - 2 puff INH .Q4-6H 02/29/16 Tiotropium Montgomery Monohydrate [Spiriva Handihaler] 1 puff INH DAILY 02/29/16 Bifidobacterium Infantis [Align] 4 mg PO DAILY 01/09/17 Furosemide Tab [Lasix Tab] 40 mg PO QD@0900,1700 01/09/17 Ipratropium/Albuterol [Duoneb] 3 ml NEB RTQID 01/09/17 Multiple Vitamins W/ Minerals [Centrum Adults] 1 tab PO DAILY 01/09/17 Decision To Admit - Decistion To Admit Decision to Admit Reason: Admit from ER Decision to Admit Date: 05/08/18 Decision to Admit Time: 13:11
[2018-05-08] MEDS ORDERED: LEVALBUTEROL NEBS 1.25 MG/3 ML VIAL NEB ONE ×2 (11:53)
[2018-05-08] MEDS ORDERED: ONDANSETRON ODT 8 MG TAB SL ONE (12:13)
--- NOTE | 2018-05-08 13:05 | RAD ---
CLINICAL HISTORY: shortness of breath COMPARISON: January 10, 2017. TECHNIQUE: XR CHEST 2 VIEWS 05/08/2018 12:29 PM WIRING INSPECTOR FINDINGS: Cardiac silhouette is mildly enlarged. There is mild bibasilar atelectasis. Lungs are hyperinflated. There is no pleural effusion. There is no pneumothorax. There are no acute osseous findings. IMPRESSION: No definite pneumonia. Electronically signed by: Chuck Corona MD 05/08/2018 1:04 PM WIRING INSPECTOR
[2018-05-08] MEDS ORDERED: KETOROLAC TROMETHAMINE INJ 30 MG/ML VIAL IV ONE (13:34)
--- NOTE | 2018-05-08 13:54 | HP ---
SUPERVISING PHYSICIAN: Hudson Brooks M.D. CHIEF COMPLAINT: Shortness of breath. HISTORY OF PRESENT ILLNESS: This is a 77 year-old female patient who presented to the Emergency Room today with shortness of breath. She is oxygen dependent at home. Her shortness of breath started about a week ago and it has progressively worsened to the point that she had to come to the Emergency Room. She had increased her breathing treatments throughout this past week, but her condition still worsened. She has had a mild fever with chills, a productive cough and chest congestion. She has a long history of chronic obstructive pulmonary disease and she quit smoking about 7 years ago. She does still use E cigarettes occasionally. In the Emergency Room, she required multiple breathing treatments before her shortness of breath improved. She still had some expiratory wheezing but she had less complaints of dyspnea. She continued to be somewhat tachypneic. Her chest x-ray showed no definite pneumonia with mild bibasilar atelectasis and hyperinflated lungs. Her lab showed sodium 135, potassium 4.3, chloride 96, carbon dioxide 29, BUN 21, creatinine 0.85, glucose 134, lactic acid 1.2. Total bilirubin 1.5, alkaline phosphatase 128. Blood gas showed a pCO2 of 53 with pO2 of 90, pH was 7.34 with O2 sat of 97%. WBCs were 11,700 with hemoglobin 12.7 and hematocrit 38.8. She did have a left shift on differential. She was given Rocephin and azithromycin as well as some IV Solu- Medrol. She was also given some Ketoralac. I was called for hospital admission. PAST MEDICAL HISTORY: 1. Chronic obstructive pulmonary disease. 2. Congestive heart failure with last echocardiogram on record in 2004 showing an ejection fraction of 75% with normal systolic function. 3. History of tobacco abuse. She quit smoke approximately 7 years ago. She continues to use E cigarettes. PAST SURGICAL HISTORY: 1. Appendectomy. 2. section. 3. Bilateral tubal ligation. HOME MEDICATIONS: Per the EMR and awaiting verification. ALLERGIES: CODEINE. FAMILY HISTORY: Positive for Alzheimer's, chronic obstructive pulmonary disease, lung cancer. SOCIAL HISTORY: She smoked approximately 1 to 2 packs of cigarettes daily for over 45 years but quit smoking approximately 7 years ago. She does currently use E cigarettes. She denies any ETOH or illicit drug use. REVIEW OF SYSTEMS: Positive for fever and chills. Negative for weight changes. HEENT: Negative for vision changes, ear pain, sinus symptoms or sore throat. RESPIRATORY: Positive for productive cough, shortness of breath and wheezing. CARDIOVASCULAR: Negative for chest pain, palpitations or tachycardia. GASTROINTESTINAL: Negative for nausea, vomiting, diarrhea or constipation. GENITOURINARY: Negative for hematuria, dysuria or polyuria. MUSCULOSKELETAL: Negative for arthralgias, myalgias. SKIN: Negative for lesions or rashes. NEUROLOGIC: Negative for headaches, dizziness or seizures. PHYSICAL EXAMINATION: VITAL SIGNS: She is afebrile. Heart rate has been as high as 125, it is now 117. Blood pressure is 126/69. Respiratory rate has been as high as 30, it is now 25. Saturations were as low as 82% on admission, they are now 91%. GENERAL: This is a 77 year-old female patient who is lying in her hospital bed. She is in no acute distress. HEENT: Normocephalic and atraumatic. Pupils are equal and reactive. Oropharynx is clear. NECK: Supple without mass. RESPIRATORY: Very diminished breath sounds throughout with a few scattered expiratory wheezing in the upper air morgan. The patient is also tachypneic and she has to speak in short phrases due to her shortness of breath. CHEST: There is equal rise and fall of the chest with inspiration and expiration. CARDIOVASCULAR: Tachycardic rate, regular rhythm. There are no appreciable murmurs. GASTROINTESTINAL: Abdomen is soft, nondistended, non-tender. Bowel sounds are positive. EXTREMITIES: No cyanosis, clubbing, or edema. NEUROLOGIC: She is alert and oriented times three. Cranial nerves II-XII are grossly intact. LABORATORY: Labs and films are as per the History of Present Illness. We are still awaiting urinalysis. ASSESSMENT: 1. Chronic obstructive pulmonary disease exacerbation with hypercapnia and concerns for early community acquired pneumonia in a patient with an extensive history of smoking, although she quit approximately 7 years ago. She continues to use E cigarettes. 2. Leukocytosis with a left shift on differential most likely secondary to #1. 3. Elevated liver function tests. 4. History of congestive heart failure without exacerbation. PLAN: We will admit the patient to the hospital. She will continue on her Zithromax and Rocephin. I have continued her IV Solu-Medrol. She can be slowly titrated down on her IV steroids. I did go ahead and start Accu-Cheks a.c. and h.s. with sliding scale NovoLog insulin due to her steroids and her sugar was slightly elevated in the Emergency Room. I also ordered a urinalysis due to her leukocytosis and will await those results. Will also restart her home medications as soon as they are verified. She is on a PPI for ulcer prophylaxis and Lovenox for DVT prophylaxis. She will have aggressive pulmonary hygiene including breathing treatments. We will continue to monitor closely and follow as needed. Dr. Brooks is the collaborating physician available for consultation. #[id number] [facility]
[2018-05-08] MEDS ORDERED: ALBUTEROL SULFATE 2.5 MG/3 ML VIAL NEB PRN (14:36)
[2018-05-08] MEDS: ENOXAPARIN SODIUM 40 MG/0.4 ML SYG SUBCU SCH (14:57)
[2018-05-08] MEDS ORDERED: IPRATROPIUM/ALBUTEROL 3 ML VIAL NEB SCH (16:00)
[2018-05-08] MEDS ORDERED: IBUPROFEN 200 MG TAB PO ONE (17:48)
[2018-05-08] MEDS ORDERED: PANTOPRAZOLE SODIUM IV 40 MG VIAL ONE (19:25)
[2018-05-08] MEDS ORDERED: GLUCAGON INJ 1 MG VIAL SUBCU PRN (19:34)
[2018-05-08] MEDS ORDERED: DEXTROSE 50% 25 GM/50 ML SYG IV PRN (19:34)
[2018-05-08] MEDS: LEVALBUTEROL NEBS 1.25 MG/3 ML VIAL NEB SCH ×2 (20:20→21:00)
[2018-05-08] MEDS: IV SET AND CAP CHANGE INJ INJ SCH (20:54)
[2018-05-08] MEDS ORDERED: DULERA INH SCH (21:00)
[2018-05-08] MEDS ORDERED: INSULIN LISPRO 100 UNITS/ML PEN SUBCU SCH (21:00)
[2018-05-08] MEDS: methylPREDNISolone SODIUM SUC 125 MG/2 ML VIAL IV SCH (21:27)
[2018-05-08] MEDS: INSULIN LISPRO 100 UNITS/ML PEN SUBCU SCH (21:28)
[2018-05-08] MEDS ORDERED: traMADol HCL 50 MG TAB PO PRN (22:04)
[2018-05-09] MEDS ORDERED: INSULIN LISPRO 100 UNITS/ML PEN SUBCU SCH
[2018-05-09] MEDS: LEVALBUTEROL NEBS 1.25 MG/3 ML VIAL NEB PRN ×2 (05:32→08:59)
[2018-05-09] MEDS: methylPREDNISolone SODIUM SUC 125 MG/2 ML VIAL IV SCH (05:54)
[2018-05-09] MEDS: PANTOPRAZOLE SODIUM IV 40 MG VIAL IV SCH (06:13)
[2018-05-09] MEDS: INSULIN LISPRO 100 UNITS/ML PEN SUBCU SCH ×4 (07:57→21:22)
[2018-05-09] MEDS: LEVALBUTEROL NEBS 1.25 MG/3 ML VIAL NEB SCH ×4 (08:50→21:09)
[2018-05-09] MEDS: ENOXAPARIN SODIUM 40 MG/0.4 ML SYG SUBCU SCH (08:50)
[2018-05-09] MEDS: TIOTROPIUM INHALER INH SCH (08:50)
--- NOTE | 2018-05-09 08:53 | RAD ---
EXAM DESCRIPTION: Chest,1 View CLINICAL HISTORY: COPD exacerbation FINDINGS/ IMPRESSION: Comparison 05/08/2018 Heart size mildly enlarged. Vascular congestion has increased since the previous study with slight indistinctness of the vascular markings consistent with minimal interstitial edema in the lower lung zones. No alveolar consolidation or effusion. Electronically signed by: Phillip Becker MD 05/09/2018 8:52 AM DISTRICT ADMINISTRATIVE ASSISTANT
[2018-05-09] MEDS: FERROUS GLUCONATE 27 MG PO SCH ×2 (08:54→11:31)
[2018-05-09] MEDS ORDERED: SODIUM CHLORIDE 0.9% 250ML 250 ML ONE (10:24)
[2018-05-09] MEDS ORDERED: AZITHROMYCIN IV 500 MG VIAL IVPB ONE (10:25)
[2018-05-09] MEDS: AZITHROMYCIN IV 500 MG in SODIUM CHLORIDE 0.9% 250ML 250 ML IVPB SCH (11:29)
[2018-05-09] MEDS: methylPREDNISolone SODIUM SUC 40 MG/ML VIAL IV SCH ×3 (11:30→23:46)
[2018-05-09] MEDS ORDERED: SODIUM CHL 0.9% 50ML MIN-BAG+ 50 ML IVPB ONE (13:23)
[2018-05-09] MEDS ORDERED: cefTRIAXone SODIUM 1 GM VIAL ONE (13:24)
[2018-05-09] MEDS: cefTRIAXone SODIUM 1 GM in SODIUM CHL 0.9% 50ML MIN-BAG+ 50 ML IVPB SCH (13:50)
--- NOTE | 2018-05-09 14:22 | PN ---
SUPERVISING PHYSICIAN: Hal Shannon MD DATE: 05/09/18 SUBJECTIVE: The patient states she feels a little bit better than she did yesterday. She is not nearly as short of breath as she was, but she is still not back to her baseline. She still has her pretty aggressive cough. She got 125 mg of Solu-Medrol in the Emergency Room and two doses of 80 mg Solu-Medrol at this point. OBJECTIVE: VITAL SIGNS: Blood pressure 129/78. Heart rate 102. Respiratory rate 20. Temperature 97.8. Oxygen saturation 91% on nasal cannula. GENERAL: Ms. Nicole is a 77-year-old female who is still mildly dyspneic at rest. NEUROLOGIC: Alert and oriented. LUNGS: Diffusely diminished, but I do not hear any active wheeze at this time. CARDIOVASCULAR: Regular rate and rhythm. Normal S1, S2. ABDOMEN: Soft. Positive bowel sounds. GENITOURINARY: Deferred. EXTREMITIES: Lower extremities with no edema. LABORATORY: Labs and films have been reviewed. White count 7.5, hemoglobin 11.6, hematocrit 35.8, platelet count 232. Sodium 137, potassium 4.5, chloride 99, CO2 31, BUN 29, creatinine 0.85, glucose 143, calcium 8.9, albumin 3.0. Urinalysis not really significant for any urinary tract infection at this time. Chest x-ray shows some mild vascular congestion which could be consistent with the interstitial edema. No consolidation. ASSESSMENT: 1. Chronic obstructive pulmonary disease exacerbation with concern for community acquired pneumonia as well. 2. Leukocytosis, secondary to #1. 3. Elevated liver function tests. 4. History of congestive heart failure without apparent exacerbation. PLAN: I will schedule her for some IV Solu-Medrol 40 mg q.6h. I will see how she does throughout the day and if she improves, she can probably go home tomorrow on p.o. steroids. She will have to significantly improve, though, because she is pretty diminished at this time. I will check a BNP in the morning as well given her pulmonary vascular congestion on chest x-ray. I do not hear a lot of crackles or anything like that, but given the radiographic interpretation, she would benefit from checking this tomorrow morning. She also has a history of congestive heart failure although I do not know her ejection fraction. Her last echocardiogram was in 2004, so it has been quite a time ago. #[id number] [facility]
[2018-05-09] MEDS ORDERED: ALPRAZolam 0.25 MG TAB PO PRN (23:26)
[2018-05-09] MEDS ORDERED: ALPRAZolam 0.5 MG TAB ONE (23:29)
[2018-05-09] MEDS: SODIUM CHLORIDE 0.9% (FLUSH) 10 ML SYG IV PRN (23:46)
[2018-05-10] MEDS: SODIUM CHLORIDE 0.9% (FLUSH) 10 ML SYG IV PRN (06:22)
[2018-05-10] MEDS: methylPREDNISolone SODIUM SUC 40 MG/ML VIAL IV SCH ×2 (06:22→17:41)
[2018-05-10] MEDS: PANTOPRAZOLE SODIUM IV 40 MG VIAL IV SCH (06:34)
[2018-05-10] MEDS: INSULIN LISPRO 100 UNITS/ML PEN SUBCU SCH ×4 (08:07→21:03)
[2018-05-10] MEDS ORDERED: AZITHROMYCIN IV 500 MG VIAL IVPB ONE (08:57)
[2018-05-10] MEDS ORDERED: SODIUM CHLORIDE 0.9% 250ML 250 ML ONE (08:57)
[2018-05-10] MEDS: TIOTROPIUM INHALER INH SCH (08:58)
[2018-05-10] MEDS: LEVALBUTEROL NEBS 1.25 MG/3 ML VIAL NEB SCH ×4 (08:58→22:15)
[2018-05-10] MEDS ORDERED: FUROSEMIDE INJ 20 MG/2 ML VIAL IV ONE (09:02)
[2018-05-10] MEDS: FERROUS GLUCONATE 27 MG PO SCH (09:04)
[2018-05-10] MEDS: ENOXAPARIN SODIUM 40 MG/0.4 ML SYG SUBCU SCH (09:05)
[2018-05-10] MEDS: AZITHROMYCIN IV 500 MG in SODIUM CHLORIDE 0.9% 250ML 250 ML IVPB SCH (11:46)
[2018-05-10] MEDS ORDERED: SODIUM CHL 0.9% 50ML MIN-BAG+ 50 ML IVPB ONE (12:58)
[2018-05-10] MEDS ORDERED: cefTRIAXone SODIUM 1 GM VIAL ONE (12:58)
[2018-05-10] MEDS: cefTRIAXone SODIUM 1 GM in SODIUM CHL 0.9% 50ML MIN-BAG+ 50 ML IVPB SCH (13:24)
--- NOTE | 2018-05-10 14:28 | PN ---
DATE: 05/10/18 SUPERVISING PHYSICIAN: Hal Shannon M.D. SUBJECTIVE: The patient states she is feeling even better today than she did yesterday. She is stepwise improving. She is able to ambulate okay. I have discussed with her reducing her steroids further and she is in agreement with that. OBJECTIVE: Blood pressure 154/73, heart rate 103, respiratory rate 20, temperature 97.9, oxygen saturation 95%. GENERAL: Ms. Nicole is a 77 year-old female in no active distress currently. NEUROLOGIC: The patient is alert and oriented. LUNGS: Still quite diminished and the wheeze is not audible at this time. CARDIOVASCULAR: Regular rate and rhythm. Normal S1 and S2. ABDOMEN: Soft. Positives bowel sounds. EXTREMITIES: Lower extremities with no significant edema. LABORATORY: There was a BNP that was checked that was 295. ASSESSMENT: 1. Chronic obstructive pulmonary disease exacerbation with community acquired pneumonia. 2. Leukocytosis secondary to #1. 3. Elevated liver function tests. 4. History of congestive heart failure. PLAN: Given the fact that she does have an elevated BNP and her chest x-ray was reflective of some pulmonary vascular congestion, I am going to give her a dose of Lasix, however I feel like the majority of her problems are her COPD. Would recommend a repeat echocardiogram at some point. I am going to reduce her steroids to 20 mg every 12 hours and hopefully she can go to p.o. steroids tomorrow, and the subsequently home. #[id number] [facility]
[2018-05-11] MEDS: methylPREDNISolone SODIUM SUC 40 MG/ML VIAL IV SCH ×2 (06:08→17:33)
[2018-05-11] MEDS: PANTOPRAZOLE SODIUM IV 40 MG VIAL IV SCH (06:21)
--- NOTE | 2018-05-11 06:59 | RAD ---
EXAM: Single view chest. INDICATION: COPD. COMPARISON: Chest x-ray: 05/09/2018. FINDINGS: There is grossly stable pulmonary vascular congestion and interstitial edema. Small pleural effusions may be present. The heart size is stable. There is no pneumothorax. IMPRESSION: Stable pulmonary vascular congestion and interstitial edema Electronically signed by: Adán Vaz MD 05/11/2018 6:58 AM ASSISTANT FRONT DESK MANAGER Workstation: [employer]
[2018-05-11] MEDS: INSULIN LISPRO 100 UNITS/ML PEN SUBCU SCH ×4 (08:26→20:50)
[2018-05-11] MEDS: LEVALBUTEROL NEBS 1.25 MG/3 ML VIAL NEB SCH ×4 (08:35→20:33)
[2018-05-11] MEDS: TIOTROPIUM INHALER INH SCH (08:35)
[2018-05-11] MEDS: ENOXAPARIN SODIUM 40 MG/0.4 ML SYG SUBCU SCH (08:41)
[2018-05-11] MEDS: FERROUS GLUCONATE 27 MG PO SCH (08:41)
[2018-05-11] MEDS ORDERED: AZITHROMYCIN IV 500 MG VIAL IVPB ONE (11:02)
[2018-05-11] MEDS ORDERED: SODIUM CHLORIDE 0.9% 250ML 250 ML ONE (11:02)
[2018-05-11] MEDS: AZITHROMYCIN IV 500 MG in SODIUM CHLORIDE 0.9% 250ML 250 ML IVPB SCH (11:12)
[2018-05-11] MEDS ORDERED: SODIUM CHL 0.9% 50ML MIN-BAG+ 50 ML IVPB ONE (12:45)
[2018-05-11] MEDS ORDERED: cefTRIAXone SODIUM 1 GM VIAL ONE (12:45)
[2018-05-11] MEDS: cefTRIAXone SODIUM 1 GM in SODIUM CHL 0.9% 50ML MIN-BAG+ 50 ML IVPB SCH (13:42)
[2018-05-11] MEDS: IV SET AND CAP CHANGE INJ INJ SCH (16:35)
[2018-05-11] MEDS: SODIUM CHLORIDE 0.9% (FLUSH) 10 ML SYG IV PRN (20:36)
--- NOTE | 2018-05-11 23:46 | PN ---
DATE: 05/11/18 SUPERVISING PHYSICIAN: Hal Shannon M.D. SUBJECTIVE: The patient feels a little worse today. She said she did not have any sleep overnight. She is concerned that she has not been ambulating and is weak. She has been able to maintain a reduced dose of steroids and again I have encouraged her to ambulate today with oxygen. OBJECTIVE: VITAL SIGNS: Temperature 98.1, pulse 105, blood pressure 106/63, respirations 20, satting 93% on nasal cannula at rest on 3 liters. I's and O's show a negative balance of 1328 with 1522 in, 2850 out. Weight is 92.8 kg. GENERAL: The patient appears tired but in no acute distress. She is alert. CHEST: Lung sounds are diminished throughout but no wheezing or rales are noted. HEART: Regular rate and rhythm. ABDOMEN: Soft, non-tender. Positive bowel sounds. EXTREMITIES: Without any edema. NEUROLOGIC: She is alert and oriented times three. LABORATORY: CBC showed white count 10,300, hemoglobin 11.8, hematocrit 36.7, platelet count 276,000. Differential shows a resolving left shift. Chemistries show a slightly elevated carbon dioxide at 35, potassium and sodium are normal. Blood sugars ranged between 106 and 170. Creatinine 0.91, BUN 31. MICROBIOLOGY: Sputum culture is pending. RADIOLOGY: Chest x-ray per radiology interpretation of a single view chest shows stable pulmonary vascular congestion and interstitial edema. ASSESSMENT: 1. Chronic obstructive pulmonary disease with exacerbation with community acquired pneumonia showing slow improvement with aggressive corticosteroid management and antibiotics. 2. Leukocytosis secondary to #1 exacerbated by steroid regimen. 3. History of congestive heart failure showing a negative balance on I's and O's with radiographic studies indicating a stable picture of pulmonary congestion with no signs of exacerbation currently. PLAN: Will continue with her Lasix and keep a negative balance. I have encouraged her to ambulate. She continues on azithromycin and Rocephin and is now on every 12 hours Solu-Medrol with anticipation of being on p.o. prednisone in the morning. Again she is encouraged to ambulate in anticipation of discharging tomorrow. At discharge, she will need close clinical followup and an echocardiogram. Until discharge will continue to monitor and treat as necessary. #[id number] [facility]
[2018-05-12] MEDS: PANTOPRAZOLE SODIUM IV 40 MG VIAL IV SCH (06:06)
[2018-05-12 07:04] VITALS: BP 166/88; TEMP 97.9
[2018-05-12] MEDS: FERROUS GLUCONATE 27 MG PO SCH (08:17)
[2018-05-12] MEDS: INSULIN LISPRO 100 UNITS/ML PEN SUBCU SCH (08:18)
[2018-05-12] MEDS: ENOXAPARIN SODIUM 40 MG/0.4 ML SYG SUBCU SCH (08:18)
[2018-05-12] MEDS: LEVALBUTEROL NEBS 1.25 MG/3 ML VIAL NEB SCH (08:30)
[2018-05-12] MEDS: TIOTROPIUM INHALER INH SCH (08:30)
[2018-05-12] MEDS ORDERED: predniSONE 20 MG TAB PO SCH (09:00)
[2018-05-12 10:25] VITALS: O2SAT 95
--- NOTE | 2018-05-13 11:05 | DS ---
SUPERVISING PHYSICIAN: Hal Shannon MD ADMISSION DIAGNOSIS: 1. Chronic obstructive pulmonary disease exacerbation with hypercapnia and concerns for early community acquired pneumonia in a patient with an extensive history of smoking, although she quit approximately 7 years ago. She continues to use E cigarettes. 2. Leukocytosis with a left shift on differential most likely secondary to #1. 3. Elevated liver function tests. 4. History of congestive heart failure without exacerbation. DISCHARGE DIAGNOSIS: 1. Chronic obstructive pulmonary disease with exacerbation, showing improvement with continued aggressive corticosteroid management and antibiotics. 2. Leukocytosis secondary to #1, exacerbated by ongoing steroid regimen. 3. Acute on chronic congestive heart failure with the patient having a negative balance on I&Os and radiographic studies indicating a stable picture of pulmonary congestion with no signs of exacerbation at discharge. REASON FOR HOSPITALIZATION: This is a 77 year-old female patient who presented to the Emergency Room today with shortness of breath. She is oxygen dependent at home. Her shortness of breath started about a week ago and it has progressively worsened to the point that she had to come to the Emergency Room. She had increased her breathing treatments throughout this past week, but her condition still worsened. She has had a mild fever with chills, a productive cough and chest congestion. She has a long history of chronic obstructive pulmonary disease and she quit smoking about 7 years ago. She does still use E cigarettes occasionally. In the Emergency Room, she required multiple breathing treatments before her shortness of breath improved. She still had some expiratory wheezing but she had less complaints of dyspnea. She continued to be somewhat tachypneic. Her chest x-ray showed no definite pneumonia with mild bibasilar atelectasis and hyperinflated lungs. Her lab showed sodium 135, potassium 4.3, chloride 96, carbon dioxide 29, BUN 21, creatinine 0.85, glucose 134, lactic acid 1.2. Total bilirubin 1.5, alkaline phosphatase 128. Blood gas showed a pCO2 of 53 with pO2 of 90, pH was 7.34 with O2 sat of 97%. WBCs were 11,700 with hemoglobin 12.7 and hematocrit 38.8. She did have a left shift on differential. She was given Rocephin and azithromycin as well as some IV Solu- Medrol. She was also given some Ketoralac. I was called for hospital admission. LABORATORY: Initial CBC showed white count 11,700, hemoglobin 12.7, hematocrit 30.8, platelet count 262,000 with differential showing a left shift. Prior to discharge, the left shift had nearly resolved with the white count being normal at 10.3. Hemoglobin and hematocrit were stable at 11.8 and 36.7 respectively. Her blood gasses on admission showed pH 7.34, pCO2 53, pO2 90, bicarb 27.9, saturation 97.5% on 2 liter nasal cannula. Chemistries initially on admission showed normal electrolytes with BUN 21, creatinine 0.85. Liver functions showed slightly elevated bilirubin of 1.5. Bilirubin normalized prior to discharge at 0.6. Alkaline phosphatase initially on admission was elevated at 128, but normalized at 110 prior to discharge. Her chemistries showed fairly stable electrolytes. On discharge, BUN was 31, normal electrolytes with carbon dioxide slightly elevated at 35, creatinine 0.91. Blood sugars fairly well controlled between 102 and 186. Urinalysis showed a trace of lysed blood, 4 urobilinogen with microscopic showing 3 to 5 WBCs, 1 to 3 RBCs, 5 to 10 epithelials with rare bacteria. MICROBIOLOGY: Sputum culture pending at discharge. RADIOLOGY: Chest x-ray on admission per radiologic interpretation showed no definite pneumonia. Multiple x-rays were completed through her admission. Final x-ray on 05/11/18, the day before discharge, per radiologic interpretation showed stable pulmonary vascular congestion and interstitial edema. HOSPITAL COURSE: Ms. Nicole was discharged on 05/12/18 for exacerbation of both congestive heart failure and chronic obstructive pulmonary disease. She was started on antibiotics that included Rocephin and azithromycin as well as Solu-Medrol with slow taper to p.o. dosing prior to discharge. She was also given Lasix and showed good response to diuresis and was clinically improving with the antibiotics and current therapy. On the morning of discharge, she was stable and improved well enough to continue with outpatient management. DISCHARGE ASSESSMENT: VITAL SIGNS: Weight 92.8 kg. GENERAL: The patient was alert and in no acute distress. She was anxious to go home. CHEST: Lungs which much improved in regards to aeration with no wheezing, just slightly diminished towards the bases. HEART: Regular rate and rhythm. ABDOMEN: Soft, nontender. Bowel sounds positive. EXTREMITIES: No edema. NEUROLOGIC: Alert and oriented x3. PLAN: Ms. Nicole was discharged with instructions to have close clinical followup with Dr. Brooks on 06/01/18 at 9:45 AM. She was to resume her home medications as previously instructed. She was again told to keep her fluids in a total of 24 hours to less than 1800 mL and to monitor her weight and report any change greater than [address] Brooks's office. She was told to return to the hospital should she have any concerning symptoms. She was again encouraged to continue with smoking cessation. At some point, she will need an updated echocardiogram. Diet at discharge was low-salt, low-fat diet. Increase activity as tolerated. NEW MEDICATIONS AT DISCHARGE: 1. Refill of albuterol nebulizers. 2. Cefdinir 300 mg twice daily, #14, no refills. 3. Prednisone 10 mg tablet taper regimen for 10 days, #30, no refills. DISPOSITION: The patient was discharged to care of family. CONDITION AT DISCHARGE: Stable and improving. [id number]
== END 2018-05-12 10:40 | disposition home or self-care (01) | DRG 192 ==
LOC: ER 11:21 → MS 13:54
PROVIDERS: ADMIT Nurse Practitioner Acute Care; ATTEND Nurse Practitioner Acute Care
DX: J44.1 Chronic obstructive pulmonary disease with (acute) exacerbation (principal); F17.290 Nicotine dependence, other tobacco product, uncomplicated; I50.9 Heart failure, unspecified; Z99.81 Dependence on supplemental oxygen; Z88.5 Allergy status to narcotic agent

== ENCOUNTER 2018-09-15 10:31 | Inpatient (IN) | payer MEDICARE, OTHER ==
--- NOTE | 2018-09-15 10:50 | HP ---
SUPERVISING PHYSICIAN: Hal Shannon MD CHIEF COMPLAINT: Shortness of breath. HISTORY OF PRESENT ILLNESS: This is a 78-year-old female patient who has a significant history of chronic obstructive pulmonary disease with frequent exacerbations in the past. She actually started feeling ill on Wednesday and by Wednesday, she was really short of breath with wheezing and a dry, hacking cough. She progressively worsened over the last several days until the point where she felt like she was scared because she could not breathe. At home, she is oxygen dependent and her oxygen saturations got as low at 67%. She went to see her primary care physician, Dr. Taj Brooks, today. In the office, her lab was completed. She also was very short of breath as well as tachypneic. She had an O2 saturation in the mid 80s until oxygen was placed on her, then it was about 90%. Her lab at the clinic showed electrolytes basically within normal limits with the exception of her calcium slightly low at 8.3. Blood glucose was 110. Liver enzymes were within normal limits. CBC was basically unremarkable. Due to her extreme shortness of breath as well as her significant history of chronic obstructive pulmonary disease as well as being oxygen dependent and in a wheelchair at home, she was sent to the hospital for direct admission. PAST MEDICAL HISTORY: 1. Chronic obstructive pulmonary disease. 2. Congestive heart failure with her last echocardiogram on record in 2004 showing an ejection fraction of 75% with normal systolic function. 3. History of tobacco abuse. She quit approximately 8 years ago. She is exposed to secondhand smoke as her continues to smoke. PAST SURGICAL HISTORY: 1. Appendectomy. 2. . 3. Bilateral tubal ligation. HOME MEDICATIONS: Per the EMR and awaiting verification. ALLERGIES: CODEINE. FAMILY HISTORY: Positive for Alzheimer's, chronic obstructive pulmonary disease and lung cancer. SOCIAL HISTORY: She is . She lives in [place]. She quit smoking about 8 years ago. She continues to be exposed to secondhand cigarette smoke. She does currently use e-cigarettes occasionally. She denies any ETOH or illicit drug use. REVIEW OF SYSTEMS: GENERAL: Positive for chills. Negative for fever or weight changes. HEENT: Negative for sinus symptoms, ear pain, vision changes or sore throat. RESPIRATORY: Positive for cough with clear, white sputum as well as shortness of breath and wheezing. CARDIAC: Negative for chest pain, palpitations or tachycardia. GASTROINTESTINAL: Negative for nausea, vomiting, diarrhea, constipation. GENITOURINARY: Negative for hematuria, dysuria or polyuria. MUSCULOSKELETAL: Negative for arthralgias, myalgias. SKIN: Negative for lesions or rashes. NEUROLOGIC: Positive for weakness. Negative for headache or seizures. PHYSICAL EXAMINATION: VITAL SIGNS: Temperature 98.4. Heart rate 92. Blood pressure 127/72. Respiratory rate 18. O2 saturation 93% on 3 liters nasal cannula. GENERAL: This is a 78-year-old female patient who is sitting up in her hospital bed. She is in a tripod position. She is in moderate respiratory distress. HEENT: Normocephalic, atraumatic. Pupils are equal and reactive. Oropharynx is clear. NECK: Supple without mass. RESPIRATORY: Diminished breath sounds throughout. She is not moving much air at all. She is tachypneic with any exertion or with speaking. She does have to speak in 2 to 3 word phrases due to her dyspnea. CHEST: There is equal rise and fall of the chest with inspiration and expiration. CARDIOVASCULAR: Regular rate and rhythm. GASTROINTESTINAL: Abdomen is soft, nondistended, nontender. EXTREMITIES: No cyanosis, clubbing or edema. NEUROLOGIC: Awake, alert and oriented times three. Cranial nerves II-XII are grossly intact. LABORATORY: Labs are as per history of present illness. Chest x-ray show hyperinflation, but no infiltrates or pneumonia. IMPRESSION: 1. 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 She did have hypoxia in her primary care physician's office with an oxygen saturation of 78% from the doctor's office. 2. Chronic obstructive pulmonary disease with acute exacerbation. 3. History of congestive heart failure without exacerbation. PLAN: We will admit the patient to the hospital. I have given her 3 breathing treatments to help with air movement. I have also put her on some IV steroids and we will do an IV steroid taper. I have done blood cultures and sputum culture. I will start her on azithromycin and Rocephin. We will do aggressive pulmonary hygiene including breathing treatments p.r.n. and scheduled. Hopefully, we can discharge her in the next 2 to 3 days with close followup with Dr. Brooks. We will continue to monitor the patient closely and follow as needed. [facility][id number] [facility]
[2018-09-15] MEDS: IV SET AND CAP CHANGE INJ INJ SCH (11:21)
[2018-09-15] MEDS ORDERED: SODIUM CHLORIDE 0.9% 250ML 250 ML ONE (11:22)
[2018-09-15] MEDS ORDERED: AZITHROMYCIN IV 500 MG VIAL IVPB ONE (11:23)
[2018-09-15] MEDS: AZITHROMYCIN IV 500 MG in SODIUM CHLORIDE 0.9% 250ML 250 ML IVPB SCH (11:27)
[2018-09-15] MEDS: IPRATROPIUM/ALBUTEROL 3 ML VIAL INH SCH ×3 (11:30→20:25)
[2018-09-15] MEDS ORDERED: methylPREDNISolone SODIUM SUC 125 MG/2 ML VIAL IV ONE (11:37)
[2018-09-15] MEDS: ALBUTEROL SULFATE 2.5 MG/3 ML VIAL NEB PRN ×2 (12:45→13:35)
[2018-09-15] MEDS ORDERED: SODIUM CHL 0.9% 50ML MIN-BAG+ 50 ML IVPB ONE (13:13)
[2018-09-15] MEDS ORDERED: cefTRIAXone SODIUM 1 GM VIAL ONE (13:14)
[2018-09-15] MEDS: cefTRIAXone SODIUM 1 GM in SODIUM CHL 0.9% 50ML MIN-BAG+ 50 ML IVPB SCH (13:18)
[2018-09-15] MEDS: BUDESONIDE NEBS 0.5 MG/2 ML VIAL NEB SCH ×2 (14:58→20:25)
[2018-09-15] MEDS ORDERED: methylPREDNISolone SODIUM SUC 40 MG/ML VIAL ONE ×2 (19:27→19:28)
[2018-09-15] MEDS ORDERED: PANTOPRAZOLE SODIUM IV 40 MG VIAL ONE (19:28)
[2018-09-15] MEDS: CALCIUM CARBONATE (ANTACID) 500 MG CHEWABLE TAB PO PRN (21:19)
[2018-09-15] MEDS: methylPREDNISolone SODIUM SUC 125 MG/2 ML VIAL IV SCH (21:21)
[2018-09-15] MEDS: SODIUM CHLORIDE 0.9% (FLUSH) 10 ML SYG IV PRN (21:23)
[2018-09-16] MEDS: ALBUTEROL SULFATE 2.5 MG/3 ML VIAL NEB PRN (03:20)
[2018-09-16] MEDS: PANTOPRAZOLE SODIUM IV 40 MG VIAL IV SCH (06:16)
[2018-09-16] MEDS: SODIUM CHLORIDE 0.9% (FLUSH) 10 ML SYG IV PRN (06:17)
[2018-09-16] MEDS: methylPREDNISolone SODIUM SUC 125 MG/2 ML VIAL IV SCH ×3 (06:18→21:21)
--- NOTE | 2018-09-16 06:43 | RAD ---
EXAM: XR Chest, 2 Views CLINICAL HISTORY: The patient is 78 years old and is Female; Pneumonia? TECHNIQUE: Frontal and lateral views of the chest. COMPARISON: Chest radiograph May 11, 2018. FINDINGS: LUNGS: The lungs are well-inflated with chronic coarse interstitial markings. There is no lobar consolidation. Minimal prominence of the interstitial markings in the lung bases is noted. PLEURAL SPACE: Unremarkable. No pneumothorax. HEART: Unremarkable. No cardiomegaly. MEDIASTINUM: Unremarkable. BONES/JOINTS: There are degenerative changes of the bones. VASCULATURE: Atherosclerosis of the aorta is present. IMPRESSION: Minimal prominence of interstitial markings in the lung bases which may be secondary to atelectasis and/or scarring. No lobar consolidation. Electronically signed by: Misty Lopez MD 09/16/2018 6:41 AM CDT
[2018-09-16] MEDS: IPRATROPIUM/ALBUTEROL 3 ML VIAL INH SCH ×4 (08:24→21:00)
[2018-09-16] MEDS: BUDESONIDE NEBS 0.5 MG/2 ML VIAL NEB SCH ×2 (08:24→21:00)
[2018-09-16] MEDS ORDERED: SODIUM CHLORIDE 0.9% 250ML 250 ML ONE (11:16)
[2018-09-16] MEDS ORDERED: AZITHROMYCIN IV 500 MG VIAL IVPB ONE (11:16)
[2018-09-16] MEDS ORDERED: TEMAZEPAM 15 MG CAP PO PRN (11:21)
[2018-09-16] MEDS: AZITHROMYCIN IV 500 MG in SODIUM CHLORIDE 0.9% 250ML 250 ML IVPB SCH (11:24)
--- NOTE | 2018-09-16 11:34 | PN ---
SUPERVISING PHYSICIAN: Jack Evans MD DATE: 09/16/18 SUBJECTIVE: The patient is sitting on the side of her bed. She feels much better today than yesterday. She continues to be short of breath, but again much less than yesterday. Her coughing has improved. She denies any chest pain, nausea, vomiting or diarrhea. OBJECTIVE: VITAL SIGNS: Temperature 98.1. Heart rate 96. Blood pressure 131/72. Respiratory rate 22. Oxygen saturation 87% on 3 liters nasal cannula. RESPIRATORY: Diminished breath sounds throughout, but improved breath sounds since yesterday. There is no wheezing or crackles. CARDIAC: Regular rate and rhythm. GASTROINTESTINAL: Abdomen is soft, nondistended, nontender. Bowel sounds are positive. NEUROLOGIC: Awake, alert and oriented times three. LABORATORY: WBCs 2.0, hemoglobin, 13.2, hematocrit 40.3. She does have a left shift on differential. Electrolytes are basically within normal limits. Glucose slightly elevated at 151. TSH 1.73. Preliminary blood cultures show no growth after 24 hours. Sputum culture pending. Chest x-ray shows minimal prominence of interstitial markings in the lung bases which may be secondary to atelectasis and/or scarring. No lobar consolidation. All other labs and films have been reviewed via the EMR. ASSESSMENT: 1. 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 She did have hypoxia in her primary care physician's office with an oxygen saturation of 78% from the doctor's office. 2. Chronic obstructive pulmonary disease with acute exacerbation. 3. History of congestive heart failure without exacerbation. PLAN: We will continue present supportive care including her aggressive pulmonary hygiene and her antibiotics. I have tapered her IV steroids down. She will have a physical therapy evaluation today. She also said she had some difficulty sleeping, so I have ordered her some Restoril for sleep. Tomorrow, we will need to get her up and ambulate to see how she tolerates it. She may benefit from pulmonary rehab at discharge. We will continue to monitor the patient closely and follow as needed. #[id number] [facility]
[2018-09-16] MEDS ORDERED: SODIUM CHL 0.9% 50ML MIN-BAG+ 50 ML IVPB ONE (13:13)
[2018-09-16] MEDS ORDERED: cefTRIAXone SODIUM 1 GM VIAL ONE (13:13)
[2018-09-16] MEDS: cefTRIAXone SODIUM 1 GM in SODIUM CHL 0.9% 50ML MIN-BAG+ 50 ML IVPB SCH (13:52)
[2018-09-16] MEDS: IBUPROFEN 400 MG TAB PO PRN ×2 (15:49→20:42)
[2018-09-16] MEDS: TIOTROPIUM INHALER INH SCH (16:28)
[2018-09-16] MEDS: FUROSEMIDE 40 MG TAB PO SCH (17:06)
[2018-09-16] MEDS: POTASSIUM CHLORIDE 10 MEQ TAB PO SCH (20:41)
[2018-09-16] MEDS ORDERED: DULERA INH SCH ×2 (21:00)
[2018-09-17] MEDS: IBUPROFEN 400 MG TAB PO PRN ×2 (01:44→23:36)
[2018-09-17] MEDS: PANTOPRAZOLE SODIUM IV 40 MG VIAL IV SCH (06:18)
[2018-09-17] MEDS: methylPREDNISolone SODIUM SUC 125 MG/2 ML VIAL IV SCH (06:19)
[2018-09-17] MEDS ORDERED: AZITHROMYCIN IV 500 MG VIAL IVPB ONE (08:33)
[2018-09-17] MEDS ORDERED: SODIUM CHL 0.9% 50ML MIN-BAG+ 50 ML IVPB ONE (08:33)
[2018-09-17] MEDS ORDERED: cefTRIAXone SODIUM 1 GM VIAL ONE (08:33)
[2018-09-17] MEDS ORDERED: SODIUM CHLORIDE 0.9% 250ML 250 ML ONE (08:33)
[2018-09-17] MEDS: DULERA INH SCH ×2 (08:37→20:00)
[2018-09-17] MEDS: FERROUS GLUCONATE 27 MG PO SCH (08:37)
[2018-09-17] MEDS: IPRATROPIUM/ALBUTEROL 3 ML VIAL INH SCH ×5 (08:37→20:00)
[2018-09-17] MEDS: FUROSEMIDE 40 MG TAB PO SCH ×2 (08:38→16:59)
[2018-09-17] MEDS: TIOTROPIUM INHALER INH SCH (08:38)
[2018-09-17] MEDS: POTASSIUM CHLORIDE 10 MEQ TAB PO SCH ×2 (08:38→20:29)
[2018-09-17] MEDS: BUDESONIDE NEBS 0.5 MG/2 ML VIAL NEB SCH ×2 (08:45→20:00)
[2018-09-17] MEDS: guaiFENesin ER TAB 600 MG TAB PO SCH ×2 (11:34→20:29)
[2018-09-17] MEDS: AZITHROMYCIN IV 500 MG in SODIUM CHLORIDE 0.9% 250ML 250 ML IVPB SCH (11:39)
--- NOTE | 2018-09-17 13:13 | PN ---
DATE: 09/17/18 SUPERVISING PHYSICIAN: Jack Evans M.D. SUBJECTIVE: The patient is sitting up on the side of her bed. She is visiting with her best friend. She said she did not like the sleep medications from last night and it made her "a little crazy." She felt that Ibuprofen would work just fine. She does continue complaints of shortness of breath, but she feels like it is improving and she is coughing up some thick white sputum. OBJECTIVE: VITAL SIGNS: Temperature 97.7, heart rate 89, blood pressure 135/70, respiratory rate 22, O2 sat is 88% on 3 liters nasal cannula. RESPIRATORY: Diminished breath sounds throughout. She does have a few expiratory wheezes in the upper air morgan, but they are very distant sounding. Her respiratory effort is very mildly improved from yesterday. She does have some pursed lip breathing when speaking and she also gets tachypneic with speaking or with exertion. CARDIAC: Regular rate and rhythm. GASTROINTESTINAL: Abdomen is soft, nondistended, non-tender. Bowel sounds are positive. NEUROLOGIC: She is awake, alert and oriented times three. LABORATORY: WBCs have normalized to 7,300 with hemoglobin 14.1, hematocrit 43. She does have a left shift on differential. Electrolytes are basically within normal limits. Preliminary blood cultures show no growth after 24 hours. Sputum culture is pending. All other labs and films have been reviewed via the EMR. ASSESSMENT: 1. 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 She did have hypoxia in her primary care physician's office with an oxygen saturation of 78% from the primary care provider's office. She is on chronic home oxygen therapy and she does continue to vape. 2. Chronic obstructive pulmonary disease with acute exacerbation. 3. History of congestive heart failure without exacerbation. PLAN: We will continue present supportive care. Her lab is fairly stable. Will hold off on lab tomorrow but will repeat a chest x-ray. I have added Mucinex for her congestion and titrated down her steroids. Hopefully we can change those to p.o. in the next day or so. I have encouraged her to get up and walk around as she continues to desaturate with any mild exertion. It may be beneficial for her to go to pulmonary rehab after discharge as well as seeing a sodder. I am not sure she has seen one in the past or not. Will continue to monitor closely and follow as needed. #[id number] [facility]
[2018-09-17] MEDS: cefTRIAXone SODIUM 1 GM in SODIUM CHL 0.9% 50ML MIN-BAG+ 50 ML IVPB SCH (13:26)
[2018-09-17] MEDS: methylPREDNISolone SODIUM SUC 40 MG/ML VIAL IV SCH ×2 (14:44→21:53)
[2018-09-17] MEDS: SODIUM CHLORIDE 0.9% (FLUSH) 10 ML SYG IV PRN (20:29)
[2018-09-18] MEDS: PANTOPRAZOLE SODIUM IV 40 MG VIAL IV SCH (06:06)
[2018-09-18] MEDS: methylPREDNISolone SODIUM SUC 40 MG/ML VIAL IV SCH (06:08)
--- NOTE | 2018-09-18 06:44 | RAD ---
EXAM: XR Chest, 2 Views CLINICAL HISTORY: The patient is 78 years old and is Female; copd/pna TECHNIQUE: Frontal and lateral views of the chest. COMPARISON: Chest radiograph from 09/16/2018 FINDINGS: LUNGS: The lungs are mildly hyperexpanded. No consolidation visualized. There has been interval improvement in interstitial prominence seen on the prior study. PLEURAL SPACE: Unremarkable. No pneumothorax. HEART: No significant enlargement of the cardiac silhouette. MEDIASTINUM: Unremarkable. BONES/JOINTS: No acute osseous findings. VASCULATURE: Atherosclerotic calcifications are visualized within the aorta. IMPRESSION: No acute findings visualized in the chest. Electronically signed by: Veronica Deleon MD 09/18/2018 6:41 AM CDT
[2018-09-18] MEDS: IPRATROPIUM/ALBUTEROL 3 ML VIAL INH SCH ×4 (08:38→20:20)
[2018-09-18] MEDS: BUDESONIDE NEBS 0.5 MG/2 ML VIAL NEB SCH ×2 (08:38→20:22)
[2018-09-18] MEDS: DULERA INH SCH ×2 (08:39→20:22)
[2018-09-18] MEDS: TIOTROPIUM INHALER INH SCH (08:39)
[2018-09-18] MEDS: FUROSEMIDE 40 MG TAB PO SCH ×2 (09:00→17:45)
[2018-09-18] MEDS: POTASSIUM CHLORIDE 10 MEQ TAB PO SCH ×2 (09:00→20:06)
[2018-09-18] MEDS: guaiFENesin ER TAB 600 MG TAB PO SCH ×2 (09:00→20:07)
[2018-09-18] MEDS ORDERED: SODIUM CHLORIDE 0.9% 250ML 250 ML ONE (11:39)
[2018-09-18] MEDS ORDERED: AZITHROMYCIN IV 500 MG VIAL IVPB ONE (11:40)
[2018-09-18] MEDS: predniSONE 20 MG TAB PO SCH (12:37)
[2018-09-18] MEDS: AZITHROMYCIN IV 500 MG in SODIUM CHLORIDE 0.9% 250ML 250 ML IVPB SCH (12:38)
[2018-09-18] MEDS: FERROUS GLUCONATE 27 MG PO SCH (13:40)
[2018-09-18] MEDS ORDERED: cefTRIAXone SODIUM 1 GM VIAL ONE (13:41)
[2018-09-18] MEDS ORDERED: SODIUM CHL 0.9% 50ML MIN-BAG+ 50 ML IVPB ONE (13:41)
[2018-09-18] MEDS: cefTRIAXone SODIUM 1 GM in SODIUM CHL 0.9% 50ML MIN-BAG+ 50 ML IVPB SCH (14:00)
[2018-09-18] MEDS: IV SET AND CAP CHANGE INJ INJ SCH (14:37)
--- NOTE | 2018-09-18 15:18 | PN ---
DATE: 09/18/18 SUPERVISING PHYSICIAN: Jack Evans M.D. SUBJECTIVE: The patient is sitting up on the side of the bed. She is taking her oxygen saturation. It dropped to 83% with exertion up to the bedside commode. It has now come up to 87% on 3 liters nasal cannula at rest. She is quite worried about doing her physical therapy tomorrow because she would like to have a wheelchair so in case she gets too short of breath she can sit in the chair. Otherwise no complaints of chest pain, nausea, vomiting, diarrhea or constipation. OBJECTIVE: VITAL SIGNS: Temperature 98.3, heart rate 103, blood pressure 133/67, respiratory rate 22 to 24, O2 sat 87% on 3 liters nasal cannula. After about 15 minutes, it does come up to 93% on 3 liters nasal cannula after rest. RESPIRATORY: Diminished breath sounds throughout. No wheezing. She is tachypneic and has to speak in short phrases. Occasionally she actually even has pursed lip breathing. CARDIAC: Regular to tachycardic rate, regular rhythm. GASTROINTESTINAL: Abdomen is soft, nondistended, non-tender. Bowel sounds are positive. NEUROLOGIC: She is awake, alert and oriented times three. Chest x-ray shows no acute findings visualized in the chest. All other labs and films have been reviewed via the EMR. ASSESSMENT: 1. 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 She did have hypoxia in her primary care physician's office with an oxygen saturation of 78% from that provider's office. She is on chronic home oxygen therapy but she does continue to vape. 2. Chronic obstructive pulmonary disease with acute exacerbation. 3. History of congestive heart failure without exacerbation. PLAN: We will continue present supportive care. I have asked that she have a wheelchair for her physical therapy tomorrow. I have repeated her lab in the morning. At discharge, she may benefit from a pulmonary consultation as well as pulmonary rehab. She is interested in trying the pulmonary rehab. She has been changed to oral prednisone and hopefully we can discharge in the next 1 to 2 days. Will continue to monitor closely and follow as needed. [facility][id number] [facility]
[2018-09-19] MEDS: IBUPROFEN 400 MG TAB PO PRN (00:08)
[2018-09-19] MEDS: PANTOPRAZOLE SODIUM IV 40 MG VIAL IV SCH (06:43)
[2018-09-19] MEDS: FERROUS GLUCONATE 27 MG PO SCH (08:08)
[2018-09-19] MEDS: SODIUM CHLORIDE 0.9% (FLUSH) 10 ML SYG IV PRN (09:25)
[2018-09-19] MEDS: FUROSEMIDE 40 MG TAB PO SCH ×2 (09:25→16:57)
[2018-09-19] MEDS: guaiFENesin ER TAB 600 MG TAB PO SCH ×2 (09:25→20:25)
[2018-09-19] MEDS: predniSONE 20 MG TAB PO SCH (09:25)
[2018-09-19] MEDS: POTASSIUM CHLORIDE 10 MEQ TAB PO SCH ×2 (09:25→20:25)
[2018-09-19] MEDS: IPRATROPIUM/ALBUTEROL 3 ML VIAL INH SCH ×4 (09:26→20:19)
[2018-09-19] MEDS: TIOTROPIUM INHALER INH SCH (09:26)
[2018-09-19] MEDS: DULERA INH SCH ×2 (09:26→20:19)
[2018-09-19] MEDS: BUDESONIDE NEBS 0.5 MG/2 ML VIAL NEB SCH ×2 (09:26→20:19)
[2018-09-19] MEDS ORDERED: SODIUM CHLORIDE 0.9% 250ML 250 ML ONE (11:26)
[2018-09-19] MEDS ORDERED: AZITHROMYCIN IV 500 MG VIAL IVPB ONE (11:26)
[2018-09-19] MEDS: AZITHROMYCIN IV 500 MG in SODIUM CHLORIDE 0.9% 250ML 250 ML IVPB SCH (11:30)
[2018-09-19] MEDS: cefTRIAXone SODIUM 1 GM in SODIUM CHL 0.9% 50ML MIN-BAG+ 50 ML IVPB SCH (14:40)
[2018-09-19] MEDS: CEFDINIR 300 MG CAP PO SCH ×2 (14:41→20:25)
[2018-09-19] MEDS ORDERED: PANTOPRAZOLE SODIUM TAB 40 MG PO ONE (19:01)
[2018-09-19] MEDS: CALCIUM CARBONATE (ANTACID) 500 MG CHEWABLE TAB PO PRN (19:28)
--- NOTE | 2018-09-19 22:26 | PN ---
DATE: 09/19/18 SUPERVISING PHYSICIAN: Phillip Tracy M.D. SUBJECTIVE: The patient continues to desaturate significantly down into the low 70s with any exertional effort. She is having some continued shortness of breath. Prefers to sit up while talking but notes that she was able to actually rest last night some. She remains afebrile. OBJECTIVE: VITAL SIGNS: Temperature 98.4, pulse 95, blood pressure 110/74, respirations 18, satting 97% on 3 liters nasal cannula at rest. Weight is 87.8 kg. GENERAL: The patient is resting comfortable. Appears to be in no acute distress. CHEST: Lung sounds are diminished throughout with no obvious rhonchi or wheezing. HEART: Regular rate and rhythm. ABDOMEN: Obese, soft, non-tender. Positive bowel sounds. EXTREMITIES: Without any clubbing, cyanosis or edema. NEUROLOGIC: She is alert and oriented times three. LABORATORY: White count is 7,300, hemoglobin 14.1, hematocrit 43.2, platelet count 209,000. Differential shows a resolving left shift. Chemistries show BUN 36, carbon dioxide 36, BUN 38, creatinine 1.1, calcium 8.8, magnesium 2.2. MICROBIOLOGY: No growth on blood cultures at 4 days. Sputum culture was cancelled. RADIOLOGY: No additional radiographic studies today. ASSESSMENT: 1. Chronic obstructive pulmonary disease with acute exacerbation with hypercapnic respiratory failure requiring continuing on O2 with significant desaturations with exertional efforts and requiring more aggressive treatment. 2. History of congestive heart failure without any signs of current exacerbation. PLAN: The patient seems to be doing okay but she certainly desaturates pretty quickly. She wants to go home tomorrow. I explained to her that we would see how she does overnight with oral medications. Will switch her to oral prednisone as well as antibiotic coverage. I did discuss at length pulmonary rehab which she is wanting to do and I will try to get her some more information regarding the actual specifics. Again, hopefully be able to discharge tomorrow. Certainly she will discharge on continued tapering steroids and antibiotic coverage. I have also discussed getting her a portable system which we are working on. Until we can transition to outpatient management will continue to monitor and treat as needed. #[id number] [facility]
[2018-09-20] MEDS ORDERED: PANTOPRAZOLE SODIUM TAB 40 MG PO SCH (06:30)
[2018-09-20] MEDS: DULERA INH SCH (07:10)
[2018-09-20] MEDS: TIOTROPIUM INHALER INH SCH (07:10)
[2018-09-20] MEDS: BUDESONIDE NEBS 0.5 MG/2 ML VIAL NEB SCH (07:10)
[2018-09-20] MEDS: IPRATROPIUM/ALBUTEROL 3 ML VIAL INH SCH ×2 (07:10→12:18)
[2018-09-20] MEDS ORDERED: AZITHROMYCIN 250 MG TAB PO SCH (09:00)
[2018-09-20] MEDS: POTASSIUM CHLORIDE 10 MEQ TAB PO SCH (09:02)
[2018-09-20] MEDS: predniSONE 20 MG TAB PO SCH (09:02)
[2018-09-20] MEDS: CEFDINIR 300 MG CAP PO SCH (09:02)
[2018-09-20] MEDS: FUROSEMIDE 40 MG TAB PO SCH (09:02)
[2018-09-20] MEDS: guaiFENesin ER TAB 600 MG TAB PO SCH (09:02)
[2018-09-20] MEDS: FERROUS GLUCONATE 27 MG PO SCH (12:55)
[2018-09-20 14:07] VITALS: BP 143/73; TEMP 98.2; O2SAT 92
--- NOTE | 2018-09-21 10:06 | DS ---
SUPERVISING PHYSICIAN: Phillip Tracy MD ADMISSION DIAGNOSIS: 1. 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 She did have hypoxia in her primary care physician's office with an oxygen saturation of 78% from the doctor's office. 2. Chronic obstructive pulmonary disease with acute exacerbation. 3. History of congestive heart failure without exacerbation. DISCHARGE DIAGNOSIS: 1. Chronic obstructive pulmonary disease with acute exacerbation with hypercapnic respiratory failure requiring continuing on O2 with significant desaturations with exertional efforts and requiring more aggressive treatment. 2. History of congestive heart failure without any signs of current exacerbation. REASON FOR HOSPITALIZATION: This is a 78-year-old female patient who has a significant history of chronic obstructive pulmonary disease with frequent exacerbations in the past. She actually started feeling ill on Wednesday and by Wednesday, she was really short of breath with wheezing and a dry, hacking cough. She progressively worsened over the last several days until the point where she felt like she was scared because she could not breathe. At home, she is oxygen dependent and her oxygen saturations got as low at 67%. She went to see her primary care physician, Dr. Taj Brooks, today. In the office, her lab was completed. She also was very short of breath as well as tachypneic. She had an O2 saturation in the mid 80s until oxygen was placed on her, then it was about 90%. Her lab at the clinic showed electrolytes basically within normal limits with the exception of her calcium slightly low at 8.3. Blood glucose was 110. Liver enzymes were within normal limits. CBC was basically unremarkable. Due to her extreme shortness of breath as well as her significant history of chronic obstructive pulmonary disease as well as being oxygen dependent and in a wheelchair at home, she was sent to the hospital for direct admission. LABORATORY: White count on admission was 2,000. At discharge, it was 7,300. Hemoglobin and hematocrit were stable at 14.1 and 42.2, respectively. Platelet count 209,000. Differential did have a slight left shift that was resolving prior to discharge. Blood gas analysis on admission showed fairly normal blood gasses, a little elevated PCO2 47, pH 7.36, saturation 98%. Chemistries showed normal electrolytes on admission and at discharge, BUN 38, creatinine 1.1. Liver functions all within normal limits. TSH normal at 1.73. Urinalysis within normal limits. MICROBIOLOGY: Blood cultures remained negative after 5 days. Sputum culture was cancelled. RADIOLOGY: She had a chest x-ray initially on admission and per radiologic interpretation showed minimal prominence of interstitial markings in the lung base which may represent some atelectasis or scarring, no lobular consolidations. This was followed up with additional x-rays on 09/19/18, the day prior to daily and per radiologic interpretation showed no acute findings once again. HOSPITAL COURSE: Ms. Nicole was admitted for exacerbation of chronic obstructive pulmonary disease. She was started on azithromycin and Rocephin, aggressive pulmonary hygiene, fairly aggressive tapering dose of Solu-Medrol to oral medications. She did fairly well. She continued to show some low saturations as noted into the 70s with ambulation. She is O2 dependent. It was felt on the morning of discharge that the patient had improved well enough and was stable on oral medications to continue with outpatient management. PLAN: Ms. Nicole is discharged on 09/20/18 with instructions to followup with Dr. Brooks, her primary care provider, as scheduled on 09/26/18 at 10:15 AM. She was to resume medications as instructed, take all new medications as directed and return to the hospital should she have any worsening symptoms. Diet at discharge was resume usual diet. Activity to increase usual activity as tolerated. She was again encouraged to stop using e-cigarettes and vaping. NEW MEDICATIONS AT DISCHARGE: 1. Cefdinir 300 mg twice daily, #14. 2. Trelegy Ellipta 1 daily, no refills. 3. Prednisone 10 mg tablets with 10-day taper dose as directed. She was to stop taking her Spiriva and Dulara in lieu of starting the Trelegy. DISPOSITION: The patient is discharged home to care of family members. CONDITION AT DISCHARGE: Stable and improving. #[id number] [facility]
== END 2018-09-20 16:00 | disposition home or self-care (01) | DRG 190 ==
LOC: GMAE 10:31 → MS 10:46
PROVIDERS: ADMIT Nurse Practitioner Acute Care; ATTEND Nurse Practitioner Family
DX: J44.1 Chronic obstructive pulmonary disease with (acute) exacerbation (principal); J96.02 Acute respiratory failure with hypercapnia; I50.9 Heart failure, unspecified; F17.290 Nicotine dependence, other tobacco product, uncomplicated; Z99.81 Dependence on supplemental oxygen; Z82.5 Family history of asthma and other chronic lower respiratory diseases; Z88.5 Allergy status to narcotic agent

== ENCOUNTER 2018-12-04 16:17 | Inpatient (IN) | payer MEDICARE, OTHER ==
[2018-12-04] MEDS ORDERED: IPRATROPIUM/ALBUTEROL 3 ML VIAL NEB ONE (16:32)
--- NOTE | 2018-12-04 16:43 | ED.PDOC ---
History of Present Illness - General Chief Complaint: Respiratory Problem Stated Complaint: fever to 102 and shortness of breath since Wednesday Time Seen by Provider: 12/04/18 16:32 Source: patient, family - History of Present Illness Initial Comments: patient comes in today with 3 day history of worsening shortness of breath, fever to 102, and cough with occasional yellow sputum. Patient has had multiple problems with past with both pneumonias, COPD exacerbations, and congestive heart failure. Patient does have preserved systolic function congestive heart failure with normal ejection fraction per last history and physical. Patient does wear oxygen daily at 3.5 L but that has not been sufficient to help her with her shortness of breath. She denies any chest pain, pedal edema, nausea, vomiting, or sore throat. Patient has a greater than 26-weif-arja history but quit a couple of years ago and now uses E cigarettes Timing/Duration: days - 3 Severity: severe Activities at Onset: rest Possible Cause: occasional episodes Improving Factors: nothing Worsening Factors: movement Associated Symptoms: cough, fever Respiratory Risk Factors: no cause identified Allergies/Adverse Reactions: Allergies Codeine Allergy (Unknown, Verified 09/15/18 11:07) Temazepam [From Restoril] Adverse Reaction (Mild, Verified 09/17/18 02:00) agitation/ confusion/ opposite effect Home Medications: Ambulatory Orders Dulera 100-5 Mcg/Act 2 puff INH BID 02/29/16 Proair Hfa 1 - 2 puff INH .Q4-6H 02/29/16 Tiotropium [place] Monohydrate [Spiriva Handihaler] 1 puff INH DAILY 02/29/16 Ferrous Gluconate [Iron] 27 mg PO DAILY 05/08/18 Albuterol Sulfate Nebs [Proventil Nebs] 2.5 mg INH Q4HR #60 vial 05/12/18 Furosemide Tab [Lasix Tab] 40 mg PO BID 09/15/18 Potassium Chloride [K-Tab] 10 meq PO BID 09/15/18 Cefdinir [Omnicef] 300 mg PO BID #14 cap 09/20/18 Ljhvuxviwdk-Vpcbjaekutda-Ngysz [Trelegy Ellipta 100-62.5-25 Mcg/INH] 1 aer IN DAILY #1 aer 09/20/18 predniSONE [Prednisone] 10 mg PO DAILY #30 tab 09/20/18 Review of Systems - Review of Systems Constitutional: States: fever, malaise EENTM: States: no symptoms reported. Denies: eye pain, ear pain, nose congestion, throat pain Respiratory: States: see HPI, cough, short of breath Cardiology: States: no symptoms reported. Denies: chest pain, edema, palpitations Gastrointestinal/Abdominal: States: no symptoms reported. Denies: abdominal pain, constipation, diarrhea, nausea, vomiting Genitourinary: States: no symptoms reported Musculoskeletal: States: no symptoms reported Past Medical History (General) - Patient Medical History Hx Seizures: No Hx Stroke: No Hx Asthma: No Hx of COPD: Yes Hx Congestive Heart Failure: No Hx Pacemaker: No Hx Hypertension: No Hx Diabetes: No Hx MRSA: No - Vaccination History Hx Influenza Vaccination: Yes Hx Pneumococcal Vaccination: Yes - Social History Hx Tobacco Use: No Hx Alcohol Use: No Hx Substance Use: No Hx Substance Use Treatment: No Hx Physical Abuse: No Hx Emotional Abuse: No - Female History Patient : No Family Medical History - Family History Mother Living Status: Age at (years of age): 86 Cause of : old age Hx Family Asthma: No Hx Family Congestive Heart Failure: No Hx Family Hypertension: Yes Hx Family Stroke: No Hx Cardiac Disease: No Hx Family Diabetes: No Hx Family Cancer: Yes - Breast cancer Father Living Status: Age at (years of age): 80 Cause of : Cancer Hx Family Asthma: No Hx Family Congestive Heart Failure: No Hx Family Hypertension: No Hx Family Stroke: No Hx Cardiac Disease: No Hx Family Diabetes: No Hx Family Cancer: Yes - Lung Cancer Physical Exam - Physical Exam General Appearance: Alert, Comfortable, No apparent distress Eyes, Ears, Nose, Throat Exam: PERRL/EOMI, normal ENT inspection, TMs normal, pharynx normal Neck: non-tender, full range of motion, supple, normal inspection Respiratory: no accessory muscle use, decreased breath sounds, rhonchi Cardiovascular/Chest: normal peripheral pulses, regular rate, rhythm, no edema, no murmur Peripheral Pulses: radial,right: 2+, radial,left: 2+ Gastrointestinal/Abdominal: normal bowel sounds, non tender, soft Neurologic: alert, oriented x 3 Progress - Results/Orders Results/Orders: Patient Name: PARESH HECTOR Gender: Female Date of : 1940 Referring Physician: LORRIE LOUIS Organization: [facility] Accession Number: [id number] Requested Date: December 04, 2018 16:32 Report Status: Final Requested Procedure: 1 Procedure Description: Chest,1 View Modality: CR Findings Reporting MD: Deo Rubio MD: Not available Dictation Time: Plan Manager: 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 FINDINGS: The cardiomediastinal silhouette appears unremarkable. Atherosclerotic calcifications in the thoracic aorta. The lungs appear mildly hyperexpanded. Mild atelectasis or infiltrate in the right lower lung. Minimal right pleural effusion is not excluded. Nodular appearing lesion in the right mid to lower lung measuring 1.6 x 1 cm. This was not visualized on the previous study and may be related to mild atelectasis or infiltrate. Follow-up in three months is recommended. No pneumothorax. IMPRESSION: Mild atelectasis or infiltrate in the right lower lung. Minimal right pleural effusion is not excluded. Nodular appearing density in the right mid to lower lung which could be related to the mild atelectasis or infiltrate. This was not visualized on the previous study. Follow-up in three months is recommended. 12/04/18 16:32 SVN/Updraft Therapy .PRN 12/04/18 16:45 EKG STAT 12/04/18 17:06 Azithromycin IV [Zithromax IV] 500 mg Sodium Chloride 0.9% 250Ml [NS 250ml] 250 ml IVPB ONCE 12/04/18 17:27 BLOOD CULTURE Stat Laboratory Results WBC 10.5 K/mm3 (4.8-10.8) 12/04/18 16:32 RBC 4.21 M/mm3 (4.20-5.40) 12/04/18 16:32 Hgb 13.2 gm/dL (12.0-16.0) 12/04/18 16:32 Hct 39.3 % (36.0-47.0) 12/04/18 16:32 MCV 93.3 fl (81.0-99.0) 12/04/18 16:32 MCH 31.4 pg (27.0-31.0) H 12/04/18 16:32 MCHC 33.7 g/dL (33.0-37.0) 12/04/18 16:32 RDW 13.7 % (11.5-14.5) 12/04/18 16:32 Plt Count 196 K/mm3 (130-400) 12/04/18 16:32 MPV 8.0 fl (7.40-10.4) 12/04/18 16:32 Absolute Neuts (auto) 9.10 K/uL (1.8-6.8) H 12/04/18 16:32 Absolute Lymphs (auto) 0.60 K/uL (1.0-3.4) L 12/04/18 16:32 Absolute Monos (auto) 0.70 K/uL (0.2-0.8) 12/04/18 16:32 Absolute Eos (auto) 0.00 K/uL (0.0-0.4) 12/04/18 16:32 Absolute Basos (auto) 0.00 K/uL (0.0-0.1) 12/04/18 16:32 Neutrophils % 87.3 % (42.0-78.0) H 12/04/18 16:32 Lymphocytes % 5.3 % (20.0-50.0) L 12/04/18 16:32 Monocytes % 6.9 % (2.0-9.0) 12/04/18 16:32 Eosinophils % 0.1 % (1.0-5.0) L 12/04/18 16:32 Basophils % 0.4 % (0.0-2.0) 12/04/18 16:32 Sodium 138 mmol/L (135-145) 12/04/18 16:32 Potassium 3.9 mmol/L (3.6-5.0) 12/04/18 16:32 Chloride 101 mmol/L (101-111) 12/04/18 16:32 Carbon Dioxide 27 mmol/L (21-31) 12/04/18 16:32 Anion Gap 13.9 (12-18) 12/04/18 16:32 BUN 20 mg/dL (7-18) H 12/04/18 16:32 Creatinine 1.26 mg/dL (0.6-1.3) 12/04/18 16:32 BUN/Creatinine Ratio 15.9 (10-20) 12/04/18 16:32 Random Glucose 110 mg/dL (70-105) H 12/04/18 16:32 Serum Osmolality 278.9 mOsm/L (275-295) 12/04/18 16:32 Lactic Acid 1.1 mmol/L (0.5-2.2) 12/04/18 17:20 Calcium 8.9 mg/dL (8.4-10.2) 12/04/18 16:32 Total Bilirubin 1.0 mg/dL (0.2-1.0) 12/04/18 16:32 AST 19 IU/L (10-42) 12/04/18 16:32 ALT 18 IU/L (10-60) 12/04/18 16:32 Alkaline Phosphatase 81 IU/L (42-121) 12/04/18 16:32 Creatine Kinase 23 IU/L (26-140) L 12/04/18 16:32 CK-MB (CK-2) 0.4 ng/mL (0.0-3.5) 12/04/18 16:32 CK-MB (CK-2) % 1.74 % (0.0-4.3) 12/04/18 16:32 Troponin I 0.01 ng/mL (0.00-0.08) 12/04/18 16:32 B-Natriuretic Peptide 237.0 pg/ml (0-100) H* 12/04/18 16:32 Serum Total Protein 6.9 gm/dL (6.4-8.2) 12/04/18 16:32 Albumin 3.4 g/dl (3.2-5.5) 12/04/18 16:32 Globulin 3.5 gm/dL (2.3-3.5) 12/04/18 16:32 Albumin/Globulin Ratio 1.0 (1.1-1.9) L 12/04/18 16:32 - EKG/XRAY/CT EKG: Sinus, RBBB, no ST T wave changes Comments: HR 98 normal axis Departure - Departure Clinical Impression: Acute exacerbation of chronic obstructive airways disease Pneumonia Qualifiers: Pneumonia type: due to unspecified organism Laterality: right Lung location: lower lobe of lung Qualified Code(s): J18.1 - Lobar pneumonia, unspecified organism Disposition: Admit Patient Condition: Good Departure Forms: ED Discharge - Pt. Copy, Patient Portal Self Enrollment Referrals: JOANA WHITTAKER MD [Primary Care Provider] - 1-2 Weeks Home Medications: Ambulatory Orders Dulera 100-5 Mcg/Act 2 puff INH BID 02/29/16 Proair Hfa 1 - 2 puff INH .Q4-6H 02/29/16 Tiotropium [place] Monohydrate [Spiriva Handihaler] 1 puff INH DAILY 02/29/16 Ferrous Gluconate [Iron] 27 mg PO DAILY 05/08/18 Albuterol Sulfate Nebs [Proventil Nebs] 2.5 mg INH Q4HR #60 vial 05/12/18 Furosemide Tab [Lasix Tab] 40 mg PO BID 09/15/18 Potassium Chloride [K-Tab] 10 meq PO BID 09/15/18 Cefdinir [Omnicef] 300 mg PO BID #14 cap 09/20/18 Urahyxgammc-Vbtvsfgwqdqm-Rkoab [Trelegy Ellipta 100-62.5-25 Mcg/INH] 1 aer IN DAILY #1 aer 09/20/18 predniSONE [Prednisone] 10 mg PO DAILY #30 tab 09/20/18 Decision To Admit - Decistion To Admit Decision to Admit Reason: Admit from ER Decision to Admit Date: 12/04/18 Decision to Admit Time: 17:40
[2018-12-04] MEDS ORDERED: LEVALBUTEROL NEBS 1.25 MG/3 ML VIAL NEB ONE (17:00)
--- NOTE | 2018-12-04 17:05 | RAD ---
EXAM DESCRIPTION: Chest,1 View CLINICAL HISTORY: 78 years Female shortness of breath COMPARISON: 09/10/2018. FINDINGS: The cardiomediastinal silhouette appears unremarkable. Atherosclerotic calcifications in the thoracic aorta. The lungs appear mildly hyperexpanded. Mild atelectasis or infiltrate in the right lower lung. Minimal right pleural effusion is not excluded. Nodular appearing lesion in the right mid to lower lung measuring 1.6 x 1 cm. This was not visualized on the previous study and may be related to mild atelectasis or infiltrate. Follow-up in three months is recommended. No pneumothorax. IMPRESSION: Mild atelectasis or infiltrate in the right lower lung. Minimal right pleural effusion is not excluded. Nodular appearing density in the right mid to lower lung which could be related to the mild atelectasis or infiltrate. This was not visualized on the previous study. Follow-up in three months is recommended. Electronically signed by: Deo Rubio MD 12/04/2018 5:03 PM CDT
[2018-12-04] MEDS ORDERED: AZITHROMYCIN IV 500 MG in SODIUM CHLORIDE 0.9% 250ML 250 ML IVPB ONE (17:06)
[2018-12-04] MEDS ORDERED: cefTRIAXone SODIUM 1 GM in SODIUM CHL 0.9% 50ML MIN-BAG+ 50 ML IVPB ONE (17:06)
[2018-12-04] MEDS ORDERED: SODIUM CHL 0.9% 50ML MIN-BAG+ 50 ML IVPB ONE (17:08)
[2018-12-04] MEDS ORDERED: cefTRIAXone SODIUM 1 GM VIAL ONE (17:08)
[2018-12-04] MEDS ORDERED: AZITHROMYCIN IV 500 MG VIAL IVPB ONE (17:44)
[2018-12-04] MEDS ORDERED: SODIUM CHLORIDE 0.9% 250ML 250 ML ONE (17:45)
--- NOTE | 2018-12-04 19:46 | HP ---
SUPERVISING PHYSICIAN: Mary Brooks MD CHIEF COMPLAINT: Shortness of breath and oxygen saturations that dropped into the 60s. HISTORY OF PRESENT ILLNESS: This is a 78-year-old female patient who has been having some shortness of breath that has increasingly worsened over the last 3 days. She is oxygen-dependent 24 hours a day. She was at work on . A fellow co-worker came into her office that that had upper respiratory symptoms and on Wednesday, she began to have low oxygen saturations with coughing, wheezing and shortness of breath. Over the weekend, it progressively worsened. Today, her oxygen saturations were in the 60s. She was very short of breath and she had a very difficult time getting her oxygen saturation higher. She actually went up on her O2, but she continued to be short of breath, so she came to the Emergency Room. In the Emergency Room, her initial vital signs showed temperature 101.3, heart rate 108, blood pressure 141/59, respiratory rate 24, O2 saturation 80% on 4 liters nasal cannula. Lab was drawn as well as blood cultures. WBCs 10,500, hemoglobin 13.2, hematocrit 39.3, but she did have a left shift on her differential. Electrolytes were basically within normal limits. Lactic acid was 1.1. BNP was 237. Chest x-ray shows mild atelectasis or infiltrate in the right lower lobe, minimal right pleural effusion is not to be excluded, nodular appearing density in the right mid to lower lung which could be related to the mild atelectasis or infiltrate. This was not visualized on the previous study. Followup is recommended. She was given 3 to 4 breathing treatments in the Emergency Room. After her breathing treatments and with oxygen, her O2 saturations did come up to the low 90s. She was also started on ceftriaxone as well as azithromycin. I was called for admission to the hospital. PAST MEDICAL HISTORY: 1. Chronic obstructive pulmonary disease. 2. Congestive heart failure with her last echocardiogram on record in 2004 showing an ejection fraction of 75% with normal systolic function. 3. History of tobacco abuse. She quite approximately 8 years ago, but she is exposed to secondhand smoke as her continues to smoke. PAST SURGICAL HISTORY: 1. Appendectomy. 2. . 3. Bilateral tubal ligation. MEDICATIONS: Per the EMR and awaiting verification. ALLERGIES: CODEINE, TEMAZEPAM. FAMILY HISTORY: Positive for Alzheimer's, COPD and lung cancer. SOCIAL HISTORY: She is . She continues to work. She quit smoking about 8 years ago. She denies any ETOH or illicit drug use. REVIEW OF SYSTEMS: GENERAL: Positive for chills, fever. Negative for weight changes. HEENT: Negative for sinus symptoms, ear pain, vision changes or sore throat. RESPIRATORY: As per history of present illness. CARDIAC: Negative for chest pain, palpitations or tachycardia. GASTROINTESTINAL: Negative for nausea, vomiting, diarrhea, constipation. GENITOURINARY: Negative for hematuria, dysuria or polyuria. MUSCULOSKELETAL: Negative for arthralgias, myalgias. SKIN: Negative for lesions or rashes. NEUROLOGIC: Negative for headache, weakness or seizures. PHYSICAL EXAMINATION: VITAL SIGNS: Temperature 100.1. Heart rate 98. Blood pressure 115/59. Respiratory rate 20. O2 saturation 91% on 3 liters. GENERAL: This is a 78-year-old female patient who is sitting up in her hospital bed. She is in a tripod position and she is in moderate respiratory distress. HEENT: Normocephalic, atraumatic. Pupils are equal and reactive. Oropharynx is clear. NECK: Supple without mass. RESPIRATORY: Diminished breath sounds throughout. She has very little air movement. She is tachypneic and has to speak in 2 to 3 word phrases due to the dyspnea. CHEST: There is equal rise and fall of the chest with inspiration and expiration. CARDIOVASCULAR: Regular rate and rhythm. GASTROINTESTINAL: Abdomen is soft, nondistended, nontender. Bowel sounds are positive. EXTREMITIES: No cyanosis, clubbing or edema. NEUROLOGIC: Awake, alert and oriented times three. Cranial nerves II-XII are grossly intact. LABORATORY: Labs and films are as per history of present illness. IMPRESSION: 1. Sepsis secondary to right lower lobe, most likely community acquired, with an admitting temperature of 101.3, heart rate 112, respiratory rate 24, a left shift on differential. 2. Chronic obstructive pulmonary disease with acute exacerbation. 3. History of congestive heart failure without evidence of an exacerbation. PLAN: We will admit the patient to the hospital. She received breathing treatments in the Emergency Room and I have started her on the pneumonia protocol that includes aggressive pulmonary hygiene. She is to continue with p.r.n. and scheduled nebulizer treatments. We will monitor her cultures as they become available. She will continue on the azithromycin and Rocephin. I have given her one dose of Solu-Medrol 125 mg. In the morning, we can decide if she needs to continue on a tapered dosing. We had to do COPD teaching and using her nebulizer as she has run out of those at home and she did not realize she needed to refill it since she got some new COPD medications, so Dr. Brooks's office needs to be called to refill her short-acting beta agonist. I put her on a proton pump inhibitor for ulcer prophylaxis, Lovenox for DVT prophylaxis. I will restart her home medications as soon as they are verified. Expected length of stay is 2 to 3 days. We will continue to monitor the patient closely and follow as needed. #[id number] [facility]
[2018-12-04] MEDS ORDERED: ACETAMINOPHEN 500 MG TAB PO ONE (19:55)
[2018-12-04] MEDS ORDERED: ALBUTEROL SULFATE 2.5 MG/3 ML VIAL NEB PRN (20:46)
[2018-12-04] MEDS ORDERED: ACETAMINOPHEN 325 MG TAB PO PRN (20:46)
[2018-12-04] MEDS ORDERED: IV SET AND CAP CHANGE INJ INJ SCH (21:00)
[2018-12-04] MEDS ORDERED: DULERA INH SCH (21:00)
[2018-12-04] MEDS: ENOXAPARIN SODIUM 40 MG/0.4 ML SYG SUBCU SCH (22:02)
[2018-12-04] MEDS: POTASSIUM CHLORIDE 10 MEQ TAB PO SCH (22:03)
[2018-12-04] MEDS ORDERED: methylPREDNISolone SODIUM SUC 125 MG/2 ML VIAL IV ONE (22:27)
[2018-12-04] MEDS: SODIUM CHLORIDE 0.9% (FLUSH) 10 ML SYG IV SCH (22:42)
[2018-12-05] MEDS: PANTOPRAZOLE SODIUM IV 40 MG VIAL IV SCH (06:36)
[2018-12-05] MEDS: SODIUM CHLORIDE 0.9% (FLUSH) 10 ML SYG IV PRN (06:36)
--- NOTE | 2018-12-05 07:24 | RAD ---
CHEST, TWO VIEW, XR 12/05/2018. CLINICAL HISTORY: Pneumonia. COMPARISON: Chest 12/04/2018. TECHNIQUE: Frontal and lateral Chest. FINDINGS: Normal cardiac size. Moderate aortic atherosclerosis. Mild pulmonary vascular congestion. Scattered atelectasis bilaterally. There is minimal bilateral pleural fluid versus pleural thickening. Lungs are hyperinflated. No pneumothorax. Medial apices are obscured by patient's chin soft tissues. Mild degenerative changes in the thoracic spine. Normal soft tissues. IMPRESSION: 1. Scattered atelectasis. Trace bilateral pleural fluid and pleural thickening. 2. Hyperinflation. Electronically signed by: Delmy Boudreaux DO 12/05/2018 7:21 AM CDT
[2018-12-05] MEDS ORDERED: SODIUM CHLORIDE 0.9% 250ML 250 ML ONE (07:28)
[2018-12-05] MEDS ORDERED: SODIUM CHL 0.9% 50ML MIN-BAG+ 50 ML IVPB ONE (07:29)
[2018-12-05] MEDS ORDERED: cefTRIAXone SODIUM 1 GM VIAL ONE (07:29)
[2018-12-05] MEDS ORDERED: AZITHROMYCIN IV 500 MG VIAL IVPB ONE (07:30)
[2018-12-05] MEDS: POTASSIUM CHLORIDE 10 MEQ TAB PO SCH ×2 (09:01→20:44)
[2018-12-05] MEDS: FUROSEMIDE 40 MG TAB PO SCH ×2 (09:01→17:39)
[2018-12-05] MEDS: SODIUM CHLORIDE 0.9% (FLUSH) 10 ML SYG IV SCH ×2 (09:02→20:44)
[2018-12-05] MEDS: cefTRIAXone SODIUM 1 GM in SODIUM CHL 0.9% 50ML MIN-BAG+ 50 ML IVPB SCH (09:02)
[2018-12-05] MEDS: IPRATROPIUM/ALBUTEROL 3 ML VIAL INH SCH ×4 (09:11→20:57)
[2018-12-05] MEDS: AZITHROMYCIN IV 500 MG in SODIUM CHLORIDE 0.9% 250ML 250 ML IVPB SCH (09:26)
[2018-12-05] MEDS: TIOTROPIUM INHALER INH SCH (09:40)
[2018-12-05] MEDS: methylPREDNISolone SODIUM SUC 40 MG/ML VIAL IV SCH ×2 (17:40→23:41)
--- NOTE | 2018-12-05 17:51 | PN ---
DATE: 12/05/18 SUPERVISING PHYSICIAN: Jack Evans M.D. SUBJECTIVE: The patient states she is breathing better than she was, but not back at her baseline. She is not complaining of nausea or vomiting, or any other symptoms at this time. OBJECTIVE: Blood pressure 117/62, heart rate 83, respiratory rate 18, temperature 98.7, oxygen saturation 94% on 3.5 liters per nasal cannula. GENERAL: Ms. Bonnie Saeed is a 78 year-old female who still is a little bit dyspneic while she is talking, but subjectively is improved. NEUROLOGIC: The patient is alert and oriented. LUNGS: Diminished but no active wheezing. CARDIOVASCULAR: Regular rate and rhythm. Normal S1 and S2. ABDOMEN: Soft. Positive bowel sounds. GENITOURINARY: Exam is deferred. EXTREMITIES: Lower extremities with no edema. LABORATORY: White count 9.3, hemoglobin 13.2, hematocrit 39.4, platelet count 190. Chemistry unremarkable. Chest x-ray shows bilateral trace pleural effusions and/or atelectasis with no consolidation. ASSESSMENT: 1. Sepsis secondary to right lower lobe pneumonia. 2. Chronic obstructive pulmonary disease exacerbation. 3. History of congestive heart failure without acute exacerbation. PLAN: At this time she has improved but is not back to her baseline. I will continue steroids and nebulizers as well as antibiotics and reevaluate on a daily basis. Will taper the steroids as well. [facility][id number] [facility]
[2018-12-05] MEDS: ENOXAPARIN SODIUM 40 MG/0.4 ML SYG SUBCU SCH (20:44)
[2018-12-06] MEDS: methylPREDNISolone SODIUM SUC 40 MG/ML VIAL IV SCH ×2 (05:55→17:59)
[2018-12-06] MEDS: SODIUM CHLORIDE 0.9% (FLUSH) 10 ML SYG IV PRN (05:56)
[2018-12-06] MEDS: PANTOPRAZOLE SODIUM IV 40 MG VIAL IV SCH (06:08)
[2018-12-06] MEDS ORDERED: SODIUM CHL 0.9% 50ML MIN-BAG+ 50 ML IVPB ONE (07:40)
[2018-12-06] MEDS ORDERED: cefTRIAXone SODIUM 1 GM VIAL ONE (07:41)
[2018-12-06] MEDS: POTASSIUM CHLORIDE 10 MEQ TAB PO SCH ×2 (08:24→21:30)
[2018-12-06] MEDS: cefTRIAXone SODIUM 1 GM in SODIUM CHL 0.9% 50ML MIN-BAG+ 50 ML IVPB SCH (08:24)
[2018-12-06] MEDS: FUROSEMIDE 40 MG TAB PO SCH ×2 (08:24→17:59)
[2018-12-06] MEDS: IPRATROPIUM/ALBUTEROL 3 ML VIAL INH SCH ×4 (09:24→20:54)
[2018-12-06] MEDS: FLUTICASONE UMECLIDINIUM VILAN IN SCH (09:25)
[2018-12-06] MEDS: TIOTROPIUM INHALER INH SCH (09:26)
[2018-12-06] MEDS ORDERED: AZITHROMYCIN IV 500 MG VIAL IVPB ONE (10:10)
[2018-12-06] MEDS ORDERED: SODIUM CHLORIDE 0.9% 250ML 250 ML ONE (10:10)
[2018-12-06] MEDS: AZITHROMYCIN IV 500 MG in SODIUM CHLORIDE 0.9% 250ML 250 ML IVPB SCH (10:52)
[2018-12-06] MEDS: SODIUM CHLORIDE 0.9% (FLUSH) 10 ML SYG IV SCH ×2 (10:52→21:30)
--- NOTE | 2018-12-06 11:58 | PN ---
SUPERVISING PHYSICIAN: Jack Evans MD DATE: 12/06/18 SUBJECTIVE: The patient states she is breathing better than she did yesterday. She is not coughing up anything. No fever or chills, no nausea or vomiting. Overall, she feels better than she did. OBJECTIVE: VITAL SIGNS: Blood pressure 148/72. Heart rate 88. Respiratory rate 18. Temperature 97.7. Oxygen saturation 96%. GENERAL: Ms. Bonnie Saeed is a 78-year-old female who is without distress currently. NEUROLOGIC: The patient is alert and oriented. LUNGS: A little bit diminished, but she is moving more air than she was yesterday. CARDIOVASCULAR: Regular rate and rhythm. Normal S1 and S2. ABDOMEN: Soft. Positive bowel sounds. GENITOURINARY: Exam is deferred. EXTREMITIES: Lower extremities with no edema. Pulses 2+. Capillary refill less than 2 seconds. LABORATORY: Chest x-ray was not repeat today, nor were labs due to stability of them yesterday. ASSESSMENT: 1. Sepsis secondary to right lower lobe pneumonia. 2. Chronic obstructive pulmonary disease exacerbation. 3. History of congestive heart failure without acute exacerbation. PLAN: Due to her clinical improvement, I am going to reduce her steroids by 50%. We will continue her other medications at this time. I spoke with her about placing her on p.o. steroids tomorrow if she continues to improve and we can either discharge tomorrow or the next day based on her clinical presentation. #[id number] [facility]
[2018-12-06] MEDS: ENOXAPARIN SODIUM 40 MG/0.4 ML SYG SUBCU SCH (21:30)
[2018-12-07] MEDS: PANTOPRAZOLE SODIUM IV 40 MG VIAL IV SCH (06:18)
[2018-12-07] MEDS: methylPREDNISolone SODIUM SUC 40 MG/ML VIAL IV SCH (06:18)
[2018-12-07 06:27] VITALS: BP 132/89; TEMP 98
[2018-12-07] MEDS ORDERED: predniSONE 20 MG TAB PO ONE (08:51)
[2018-12-07] MEDS: FUROSEMIDE 40 MG TAB PO SCH (09:18)
[2018-12-07] MEDS: POTASSIUM CHLORIDE 10 MEQ TAB PO SCH (09:18)
[2018-12-07] MEDS: TIOTROPIUM INHALER INH SCH (09:35)
[2018-12-07] MEDS: FLUTICASONE UMECLIDINIUM VILAN IN SCH (09:35)
[2018-12-07] MEDS: IPRATROPIUM/ALBUTEROL 3 ML VIAL INH SCH (09:35)
[2018-12-07 09:40] VITALS: O2SAT 94
--- NOTE | 2018-12-07 18:33 | DS ---
SUPERVISING PHYSICIAN: Jack Evans M.D. DISCHARGE DIAGNOSIS: 1. Sepsis secondary to right lower lobe pneumonia. 2. Chronic obstructive pulmonary disease exacerbation. 3. History of congestive heart failure without acute exacerbation. HISTORY OF PRESENT ILLNESS: This is a 78-year-old female patient who has been having some shortness of breath that increasingly worsened 3 days prior to her admission. She is oxygen-dependent 24 hours a day. On she was exposed to as fellow co-worker that had upper respiratory symptoms and on Wednesday she had low oxygen saturations with coughing, wheezing and shortness of breath. Over the weekend, it worsened. Her oxygen saturations at home were in the 60s. She was very short of breath and had a difficult time getting her oxygen saturation any higher. She went up on her O2, but she continued to be short of breath, so she came to the Emergency Room. In the Emergency Room, her temperature was 101.3, heart rate 108, blood pressure 141/59, respiratory rate 24, O2 saturation 80% on 4 liters nasal cannula. Lab was drawn as well as blood cultures. WBCs were 10,500, hemoglobin 13.2, hematocrit 39.3 with a left shift on differential. Electrolytes were basically within normal limits. Lactic acid was 1.1. BNP was slightly elevated at 237. Chest x-ray showed mild atelectasis or infiltrate in the right lower lobe, minimal right pleural effusion is not to be excluded with a nodular appearing density in the right mid to lower lung which could be related to the mild atelectasis or infiltrate. It had not been visualized on the previous study. Followup recommended. She was given 3 to 4 breathing treatments in the Emergency Room. After breathing treatments combined with oxygen, her O2 saturations did come up to the low 90s. She was started on ceftriaxone as well as azithromycin. She was admitted to the hospital. HOSPITAL COURSE: The patient was continued on her breathing treatments as well as placed on the pneumonia protocol that included good pulmonary hygiene. She was given scheduled and p.r.n. nebulizer treatments. Her cultures were monitored. She also received a dose of Solu-Medrol IV and it was tapered down until she received her p.o. prednisone this morning. She had run out of her Albuterol nebulizer treatments at home and did not understand she needed to continue with those as well as her [facility] medications. We did COPD teaching. She is aware that she has to have her Albuterol as needed for coughing, wheezing and shortness of breath. She was also placed on a proton pump inhibitor for ulcer prophylaxis as well as Lovenox for DVT prophylaxis. Her clinical picture improved as she became less short of breath. Physical Therapy was consulted and with her oxygen she was able to ambulate in the halls without too many problems. She will be discharged home today in stable condition. LABORATORY: Initial WBCs were 10,500, followup were 9,300. Hemoglobin and hematocrit remained stable at 13.2 and 39.4. She did have a left shift on her differential. Initial electrolytes were within normal limits and glucose was 110. She did have an initial BNP of 237. Lactic acid was 1.1, followup electrolytes were also within normal limits with the exception of glucose was slightly high at 161. Preliminary blood cultures show no growth after 48 hours. RADIOLOGY: Initial chest x-ray per the History of Present Illness. Followup chest x-ray shows scattered atelectasis, trace of bilateral pleural fluid, pleural thickening and hyperventilation. DISCHARGE PLAN: The patient will be discharged home in stable condition. She is to resume her previous diet as well as increase her activity as tolerated. She has completed 3 days of Zithromax and she is to continue with 7 additional days of Cefdinir. She was out of her Albuterol ProAir and I ordered that for her. I also ordered her 1 month of Albuterol nebs. This will need to be a routine prescription and she knows that she is to take that 4 times daily. I have also put her on a standard prednisone taper, but due to her extensive lung problems she most likely would benefit from daily prednisone, so after she has completed her prednisone taper she should be on prednisone 10 mg daily. I am not sure if she has seen a interpretive naturalist in the past, but she may benefit from that. She is to followup with Dr. Brooks on 12/14/18 at 9:45 AM. It would be helpful to have a chest x-ray done at that time. She is to return to the hospital or call Dr. Brooks's office for any problems or complications. #[id number] MTDD
== END 2018-12-07 10:35 | disposition home or self-care (01) | DRG 871 ==
LOC: ER 16:17 → MS 19:45
PROVIDERS: ADMIT Nurse Practitioner Acute Care; ATTEND Nurse Practitioner Acute Care
DX: A41.9 Sepsis, unspecified organism (principal); J18.1 Lobar pneumonia, unspecified organism; J44.1 Chronic obstructive pulmonary disease with (acute) exacerbation; I50.32 Chronic diastolic (congestive) heart failure; Z99.81 Dependence on supplemental oxygen; Z87.891 Personal history of nicotine dependence; Z88.5 Allergy status to narcotic agent; Z88.8 Allergy status to other drugs, medicaments and biological substances; Z79.52 Long term (current) use of systemic steroids; Z79.899 Other long term (current) drug therapy

== ENCOUNTER 2019-01-21 15:01 | Emergency (ER) | payer MEDICARE, OTHER ==
[2019-01-21 17:10] VITALS: BP 155/96; TEMP 98.2; O2SAT 98
== END 2019-01-21 16:55 | disposition home or self-care (01) ==
LOC: ER 15:01
DX: S90.32XA Contusion of left foot, initial encounter (principal); J44.9 Chronic obstructive pulmonary disease, unspecified; Z87.891 Personal history of nicotine dependence; Z79.899 Other long term (current) drug therapy; Z88.5 Allergy status to narcotic agent; Z88.8 Allergy status to other drugs, medicaments and biological substances; W20.8XXA Other cause of strike by thrown, projected or falling object, initial encounter; Y92.9 Unspecified place or not applicable

== ENCOUNTER → 2019-11-27 | Outpatient (CLI) | payer MEDICARE, OTHER | LOC: GMAE 10:59 | PROVIDERS: ATTEND Family Medicine | DX: I10 Essential (primary) hypertension (principal); E11.9 Type 2 diabetes mellitus without complications; E78.2 Mixed hyperlipidemia ==

== ENCOUNTER 2020-06-07 17:36 | Inpatient (IN) | payer MEDICARE, OTHER ==
[2020-06-07] MEDS ORDERED: ALBUTEROL SULFATE 2.5 MG/3 ML VIAL NEB ONE (17:53)
[2020-06-07] MEDS ORDERED: IPRATROPIUM/ALBUTEROL 3 ML VIAL NEB ONE ×2 (17:53→18:05)
[2020-06-07] MEDS ORDERED: methylPREDNISolone SODIUM SUC 125 MG/2 ML VIAL IV ONE (17:53)
[2020-06-07] MEDS ORDERED: IBUPROFEN 200 MG TAB PO ONE (18:01)
[2020-06-07] MEDS ORDERED: CEFEPIME 1 GM in SODIUM CHLORIDE 0.9% 50ML 50 ML IVPB ONE (18:46)
[2020-06-07] MEDS ORDERED: AZITHROMYCIN IV 500 MG in SODIUM CHLORIDE 0.9% 250ML 250 ML IVPB ONE (18:46)
[2020-06-07] MEDS ORDERED: SODIUM CHLORIDE 0.9% 1000ML 500 ML IVS ONE ×2 (18:57→21:12)
[2020-06-07] MEDS ORDERED: ACETYLCYSTEIN 20 % 6,000 MG/30 ML VIAL PO ONE (18:58)
--- NOTE | 2020-06-07 19:03 | RAD ---
EXAM: XR Chest, 1 View CLINICAL HISTORY: The patient is 79 years old and is Female; sob TECHNIQUE: Single view of the chest. COMPARISON: December 05, 2018. FINDINGS: Lungs: Lingula infiltrate, atelectasis and/or scarring. No pulmonary vascular congestion. Pleural space: No pleural effusion or pneumothorax. Heart: The cardiac silhouette is enlarged versus artifact of AP technique. Mediastinum: Unremarkable. Bones/joints: No acute fracture visualized. Upper abdomen: No free air in the visualized upper abdomen. IMPRESSION: Lingula infiltrate, atelectasis and/or scarring. Electronically signed by: Roslyn Garcia MD 06/07/2020 7:01 PM [employer]
[2020-06-07] MEDS ORDERED: REMDESIVIR 200 MG in SODIUM CHLORIDE 0.9% 250ML 250 ML IVPB ONE (19:06)
[2020-06-07] MEDS ORDERED: ENOXAPARIN SODIUM 100 MG/ML SYG SUBCU ONE (19:19)
--- NOTE | 2020-06-07 21:20 | ED.PDOC ---
History of Present Illness - General Chief Complaint: Respiratory Problem Stated Complaint: SOB, cough, lethargy, febrile Time Seen by Provider: 06/07/20 17:38 Source: patient Exam Limitations: no limitations - History of Present Illness Initial Comments: The patient is a 79-year-old female presented emergency room secondary to increased shortness of breath and fevers as well as increased confusion over the last 24 hours. The patient does have known longstanding COPD. She has had multiple episodes of pneumonia in the past. She has had increased productive cough. She has had increased shortness of breath with exertion over the last couple of days. No nausea vomiting or diarrhea. Initially upon arrival here she showed some significant confusion which did not improve significantly with improvement in oxygenation. No obvious focal neurological deficits that are new. Family is cooperative. Patient is cooperative. She does have scattered rales wheezes and rhonchi. She does have decreased air movement. Timing/Duration: other - 2 days Severity: severe Improving Factors: nothing Worsening Factors: movement Associated Symptoms: cough, diaphoresis, fever/chills, loss of appetite, shortness of breath, weakness Allergies/Adverse Reactions: Allergies Codeine Allergy (Unknown, Verified 12/04/18 18:13) Temazepam [From Restoril] Adverse Reaction (Mild, Verified 12/04/18 18:13) agitation/ confusion/ opposite effect Home Medications: Ambulatory Orders Proair Hfa 1 - 2 puff INH .Q4-6H 02/29/16 Ferrous Gluconate [Iron] 27 mg PO DAILY 05/08/18 Furosemide Tab [Lasix Tab] 40 mg PO BID 09/15/18 Potassium Chloride [K-Tab] 10 meq PO BID 09/15/18 Yfzuretmkyo-Onnaibysmghc-Iessv [Trelegy Ellipta 100-62.5-25 Mcg/INH] 1 aer IN DAILY #1 aer 09/20/18 Albuterol Sulfate Nebs [Proventil Nebs] 2.5 mg INH QID #120 vial 12/07/18 Albuterol Sulfate [Proair Hfa] 2 puff INH Q6H PRN #1 inhaler 12/07/18 Cefdinir 300 mg PO BID #14 capsule 12/07/18 Prednisone 10 mg PO DAILY #30 tab 12/07/18 Prednisone See Taper PO DAILY #30 tab 12/07/18 Acetaminophen W/ Codeine [Tylenol/Codeine #4 300-60 mg] 1 ea PO Q4HR PRN #14 tab 01/21/19 Review of Systems - Review of Systems Constitutional: States: fever, malaise, weakness - Generalized EENTM: States: no symptoms reported Respiratory: States: cough, short of breath, wheezing Cardiology: States: no symptoms reported Gastrointestinal/Abdominal: States: no symptoms reported Genitourinary: States: no symptoms reported Musculoskeletal: States: no symptoms reported Skin: States: no symptoms reported Neurological: States: see HPI Endocrine: States: no symptoms reported All other Systems: No Change from Baseline Past Medical History (General) - Patient Medical History Hx Seizures: No Hx Stroke: No Hx Asthma: No Hx of COPD: Yes Hx Cardiac Disorders: No Hx Congestive Heart Failure: No Hx Pacemaker: No Hx Hypertension: No Hx Diabetes: No Hx Cancer: No Hx Hepatitis C: No Hx MRSA: No - Vaccination History Hx Influenza Vaccination: Yes Hx Pneumococcal Vaccination: Yes - Social History Hx Tobacco Use: Yes - Quit 2009 Hx Alcohol Use: No Hx Substance Use: No Hx Substance Use Treatment: No Hx Physical Abuse: No Hx Emotional Abuse: No - Female History Patient is a Female of Child Bearing Age (10 -59 yrs old): No Patient : No Family Medical History - Family History Mother Living Status: Age at (years of age): 86 Cause of : old age Hx Family Asthma: No Hx Family Congestive Heart Failure: No Hx Family Hypertension: Yes Hx Family Stroke: No Hx Cardiac Disease: No Hx Family Diabetes: No Hx Family Cancer: Yes - Breast cancer Father Living Status: Age at (years of age): 80 Cause of : Cancer Hx Family Asthma: No Hx Family Congestive Heart Failure: No Hx Family Hypertension: No Hx Family Stroke: No Hx Cardiac Disease: No Hx Family Diabetes: No Hx Family Cancer: Yes - Lung Cancer Physical Exam - Physical Exam General Appearance: Alert, Anxious, Frail, Ill Appearing Eye Exam: bilateral normal Ears, Nose, Throat: normal pharynx, other - Hearing chronically decreased bilaterally. Patient does not have her hearing aids. Neck: full range of motion, supple Respiratory: respiratory distress - Mild, decreased breath sounds, accessory muscle use, rales, rhonchi, wheezing Cardiovascular/Chest: normal peripheral pulses, no edema, tachycardia Peripheral Pulses: radial,right: 2+, radial,left: 2+ Gastrointestinal/Abdominal: non tender - Obese, soft Rectal Exam: deferred Back Exam: no CVA tenderness, no vertebral tenderness Extremity: normal range of motion, non-tender, normal inspection, no pedal edema, normal capillary refill Neurologic: social insurance administrator II-XII nml as tested, alert, other - See above Skin Exam: normal color Comments: Vital Signs (72 hours) 06/07/20 06/07/20 06/07/20 17:48 17:50 18:33 Temperature 102.5 F H Pulse Rate [ 114 H 114 H Right Radial] Respiratory 30 H 30 H Rate Blood Pressure 123/77 [Left Arm] O2 Sat by Pulse 90 L 99 Oximetry 06/07/20 06/07/20 06/07/20 18:36 19:50 20:00 Temperature Pulse Rate [ 100 H 96 H 99 H Right Radial] Respiratory 16 16 16 Rate Blood Pressure 90/53 106/62 102/52 [Left Arm] O2 Sat by Pulse 90 L 90 L 89 L Oximetry 06/07/20 21:00 Temperature Pulse Rate [ 84 Right Radial] Respiratory 16 Rate Blood Pressure 103/68 [Left Arm] O2 Sat by Pulse 90 L Oximetry Progress - Progress Progress: 06/07/20 21:22 The patient is a 79-year-old female presented emergency room with what is most likely a COPD exacerbation and lingular pneumonia giving her significant leukocytosis and mild respiratory distress. The patient does have mild hypoxic encephalopathy initially but this does improve with corrected oxygenation. For the pneumonia the patient is being placed on azithromycin and cefepime. For the COPD exacerbation she has received a breathing treatment with EMS followed by 2 breathing treatments here. She is on increased flow oxygen. Blood pressures are borderline low, heart rate is elevated and the patient does have a significant leukocytosis all indicating early sepsis. The patient is receiving a liter of IV fluids. She is not technically hypotensive at this point. Cultures have been done. She did test negative for coronavirus on a rapid test. Secondary to elevation of the inflammatory markers however we are sending off a PCR test that returns in 24 to 48 hours to confirm that she does not have coronavirus. The patient was given a dose of Solu-Medrol for the COPD and sepsis. The patient was also given a loading dose of remdesivir until we can prove she does not have coronavirus. Additionally the patient has a markedly elevated D-dimer. I do not have a previous D-dimer to compare to. The patient is being placed on a treatment dose of Lovenox for now. She does have acute renal failure possibly due to dehydration but also possibly due to lower oxygen levels. Again she is receiving IV fluids and she also received a dose of Mucomyst. If renal function improves tomorrow then a CT angiogram could be a possibility to help rule out pulmonary embolus as an additional cause of the worsening of the respiratory status. Admit for continued care. Obviously the patient is in serious condition and was in poor condition to start with. She does face a fairly high mortality with this illness. [email or web address] [id number] - Results/Orders Results/Orders: EKG shows sinus tachycardia with PACs at 118 bpm. [place] is essentially normal. She does have a right bundle branch block. No definitive ST segment elevation or depression can be determined. No obvious T wave changes that are acute. She does have a prolonged QT interval. Mild left atrial dilation. Chest x-ray shows some cardiomegaly and likely a lingular infiltrate. Significant changes of COPD are present. Rapid coronavirus test is negative. Laboratory Results - last 24 hr 06/07/20 06/07/20 06/07/20 18:09 18:09 18:09 WBC 21.4 H* RBC 4.27 Hgb 12.6 Hct 39.0 MCV 91.4 MCH 29.6 MCHC 32.4 L RDW 13.7 Plt Count 195 MPV 8.4 Absolute Neuts (auto) Not Reportable Absolute Lymphs (auto) Not Reportable Absolute Monos (auto) Not Reportable Absolute Eos (auto) Not Reportable Total Counted Neutrophils % Not Reportable Neutrophils % (Manual) 88.0 H Lymphocytes % Not Reportable Lymphocytes % (Manual) 8.0 Monocytes % Not Reportable Monocytes % (Manual) 4.0 Eosinophils % Not Reportable Basophils % Not Reportable Band Neutrophils Eosinophils Basophils Metamyelocytes Myelocytes Promyelocytes Nucleated RBCs Differential Comment Hypersegmented Polys Blast Cells Plasma Cells Other Cell Type Hypochromia Toxic Granulation Dohle Bodies Claire Rods Platelet Estimate Normal RBC Morphology Polychromasia Poikilocytosis Basophilic Stippling Anisocytosis Microcytosis Macrocytosis Spherocytes Sickle Cells Target Cells Ovalocytes Stomatocytes Helmet Cells Huitron-[place] Bodies Rohwer Rings Meghan Cells Acanthocytes (Spur) Rouleaux Schistocytes RBC Morph Comment PUBS Tear Drop Cells PT INR PTT (SP) Fibrinogen D-Dimer, Quantitative pCO2 pO2 HCO3 ABG pH ABG O2 Saturation ABG Base Excess ABG Deoxyhemoglobin Oxyhemoglobin % Carboxyhemoglobin % Methemoglobin % Sat Calc Total Hemoglobin Sodium 137 Potassium 4.0 Chloride 96 L Carbon Dioxide 32 H Anion Gap 13.0 BUN 19 H Creatinine 1.50 H BUN/Creatinine Ratio 12.7 Random Glucose 95 Serum Osmolality 275.9 Lactic Acid Calcium 8.9 Magnesium 1.9 Ferritin 308.9 H Total Bilirubin 1.4 H AST 25 ALT 23 Alkaline Phosphatase 53 LD Total 152 Creatine Kinase 127 CK-MB (CK-2) 1.6 CK-MB (CK-2) % Not Reportable Troponin I 0.03 C-Reactive Protein 12.3 H* B-Natriuretic Peptide 273.0 H* Serum Total Protein 6.8 Albumin 3.7 Globulin 3.1 Albumin/Globulin Ratio 1.2 TSH 1.02 06/07/20 06/07/20 06/07/20 18:09 18:09 18:09 WBC RBC Hgb Hct MCV MCH MCHC RDW Plt Count MPV Absolute Neuts (auto) Absolute Lymphs (auto) Absolute Monos (auto) Absolute Eos (auto) Total Counted Cancelled Neutrophils % Neutrophils % (Manual) Cancelled Lymphocytes % Lymphocytes % (Manual) Cancelled Monocytes % Monocytes % (Manual) Cancelled Eosinophils % Basophils % Band Neutrophils Cancelled Eosinophils Cancelled Basophils Cancelled Metamyelocytes Cancelled Myelocytes Cancelled Promyelocytes Cancelled Nucleated RBCs Cancelled Differential Comment Cancelled Hypersegmented Polys Cancelled Blast Cells Cancelled Plasma Cells Cancelled Other Cell Type Cancelled Hypochromia Cancelled Toxic Granulation Cancelled Dohle Bodies Cancelled Claire Rods Cancelled Platelet Estimate Cancelled Normal RBC Morphology Cancelled Polychromasia Cancelled Poikilocytosis Cancelled Basophilic Stippling Cancelled Anisocytosis Cancelled Microcytosis Cancelled Macrocytosis Cancelled Spherocytes Cancelled Sickle Cells Cancelled Target Cells Cancelled Ovalocytes Cancelled Stomatocytes Cancelled Helmet Cells Cancelled [place]ron-[place] Bodies Cancelled Rohwer Rings Cancelled Meghan Cells Cancelled Acanthocytes (Spur) Cancelled Rouleaux Cancelled Schistocytes Cancelled RBC Morph Comment Cancelled PUBS Tear Drop Cells Cancelled PT 10.2 INR 1.03 PTT (SP) 24.1 Fibrinogen 450 H D-Dimer, Quantitative 3740.0 H* pCO2 pO2 HCO3 ABG pH ABG O2 Saturation ABG Base Excess ABG Deoxyhemoglobin Oxyhemoglobin % Carboxyhemoglobin % Methemoglobin % Sat Calc Total Hemoglobin Sodium Potassium Chloride Carbon Dioxide Anion Gap BUN Creatinine BUN/Creatinine Ratio Random Glucose Serum Osmolality Lactic Acid 1.1 Calcium Magnesium Ferritin Total Bilirubin AST ALT Alkaline Phosphatase LD Total Creatine Kinase CK-MB (CK-2) CK-MB (CK-2) % Troponin I C-Reactive Protein B-Natriuretic Peptide Serum Total Protein Albumin Globulin Albumin/Globulin Ratio TSH 06/07/20 18:23 WBC RBC Hgb Hct MCV MCH MCHC RDW Plt Count MPV Absolute Neuts (auto) Absolute Lymphs (auto) Absolute Monos (auto) Absolute Eos (auto) Total Counted Neutrophils % Neutrophils % (Manual) Lymphocytes % Lymphocytes % (Manual) Monocytes % Monocytes % (Manual) Eosinophils % Basophils % Band Neutrophils Eosinophils Basophils Metamyelocytes Myelocytes Promyelocytes Nucleated RBCs Differential Comment Hypersegmented Polys Blast Cells Plasma Cells Other Cell Type Hypochromia Toxic Granulation Dohle Bodies Claire Rods Platelet Estimate Normal RBC Morphology Polychromasia Poikilocytosis Basophilic Stippling Anisocytosis Microcytosis Macrocytosis Spherocytes Sickle Cells Target Cells Ovalocytes Stomatocytes Helmet Cells [place] Bodies Rohwer Rings Meghan Cells Acanthocytes (Spur) Rouleaux Schistocytes RBC Morph Comment PUBS Tear Drop Cells PT INR PTT (SP) Fibrinogen D-Dimer, Quantitative pCO2 49 H pO2 39 L* HCO3 33.6 ABG pH 7.447 ABG O2 Saturation 78.3 L ABG Base Excess 8.2 ABG Deoxyhemoglobin 21.2 H Oxyhemoglobin % 76.6 L Carboxyhemoglobin % 1.6 H Methemoglobin % Sat 0.6 Calc Total Hemoglobin 12.9 Sodium Potassium Chloride Carbon Dioxide Anion Gap BUN Creatinine BUN/Creatinine Ratio Random Glucose Serum Osmolality Lactic Acid Calcium Magnesium Ferritin Total Bilirubin AST ALT Alkaline Phosphatase LD Total Creatine Kinase CK-MB (CK-2) CK-MB (CK-2) % Troponin I C-Reactive Protein B-Natriuretic Peptide Serum Total Protein Albumin Globulin Albumin/Globulin Ratio TSH - EKG/XRAY/CT CT Ordered: No CT Interpretation Call Back: No Departure - Departure Clinical Impression: COPD exacerbation, Acute renal failure, Elevated d-dimer, Hypoxic encephalopathy Pneumonia involving left lung Qualifiers: Pneumonia type: due to unspecified organism Lung location: unspecified part of lung Qualified Code(s): J18.9 - Pneumonia, unspecified organism Sepsis Qualifiers: Sepsis type: sepsis due to unspecified organism Sepsis acute organ dysfunction status: with acute organ dysfunction Severe sepsis acute organ dysfunction type: acute renal failure Acute renal failure type: unspecified Severe sepsis shock status: without septic shock Qualified Code(s): A41.9 - Sepsis, unspecified organism; R65.20 - Severe sepsis without septic shock; N17.9 - Acute kidney failure, unspecified Disposition: Admit Patient Departure Forms: ED Discharge - Pt. Copy, Patient Portal Self Enrollment Referrals: JOANA WHITTAKER MD [Primary Care Provider] - 1-2 Weeks Home Medications: Ambulatory Orders Proair Hfa 1 - 2 puff INH .Q4-6H 02/29/16 Ferrous Gluconate [Iron] 27 mg PO DAILY 05/08/18 Furosemide Tab [Lasix Tab] 40 mg PO BID 09/15/18 Potassium Chloride [K-Tab] 10 meq PO BID 09/15/18 Ousoswsadld-Gutgqngkmrnl-Zhirp [Trelegy Ellipta 100-62.5-25 Mcg/INH] 1 aer IN DAILY #1 aer 09/20/18 Albuterol Sulfate Nebs [Proventil Nebs] 2.5 mg INH QID #120 vial 12/07/18 Albuterol Sulfate [Proair Hfa] 2 puff INH Q6H PRN #1 inhaler 12/07/18 Cefdinir 300 mg PO BID #14 capsule 12/07/18 Prednisone 10 mg PO DAILY #30 tab 12/07/18 Prednisone See Taper PO DAILY #30 tab 12/07/18 Acetaminophen W/ Codeine [Tylenol/Codeine #4 300-60 mg] 1 ea PO Q4HR PRN #14 tab 01/21/19 Decision To Admit - Decistion To Admit Decision to Admit Reason: Medical Nature Decision to Admit Date: 06/07/20 Decision to Admit Time: 21:28
--- NOTE | 2020-06-07 22:33 | HP ---
SUPERVISING PHYSICIAN: Phillip Tracy M.D. CHIEF COMPLAINT: Increasing shortness of breath and confusion. HISTORY OF PRESENT ILLNESS: Ms. Bonnie Saeed is a 79 year-old female patient that came to the Emergency Room last night complaining of some increasing shortness of breath with fever and associated confusion over the last 24 hours. She does have a longstanding history of chronic obstructive pulmonary disease and is actually O2 dependent. She has been in and out of the hospital several times in the last year with pneumonia. She endorses that she has had increasing cough with shortness of breath on exertion over the last several days. She was noted to be significantly confused initially on admission which did not improve significantly with oxygen. No obvious focal motor deficits are noted. Further workup showed labs that she had a leukocytosis of 21,400 with a left shift and blood gas analysis did show a pH of 7.447 but her pO2 was 39 with a pCO2 of 49 and that was on oxygen via nasal cannula. Chemistries showed again elevated CO2 with a normal anion gap with a creatinine of 1.50, baseline creatinine is around 1.0. Liver functions were all within normal limits. BNP was a little elevated at 273 as well as C reactive protein at 12.3. Nasal swab for COVID was negative as well as Influenza A and B by PCR. Blood cultures were completed. She was started on antibiotics. Chest x-ray showed lingular infiltrate with atelectasis and/or scarring. Initial vital signs on initial presentation to the Emergency Room showed she was febrile with a temperature of 102.5, tachycardic at 114, blood pressure was normal at 123/77 but she was showing saturations of 90% on 2 liters nasal cannula with respirations of 30 initially. After initiation of treatment, she was showing improvement up to 96% on 3 liters nasal cannula. She was showing to be stable and now is going to be admitted for treatment of underlying left sided pneumonia. She was admitted in stable condition. PAST MEDICAL HISTORY: 1. Chronic obstructive pulmonary disease, oxygen dependent. 2. History of congestive heart failure with last echocardiogram in 2004 showing an ejection fraction of 75% with normal systolic function. 3. Significant tobacco abuse quitting 8 years previously as well as secondhand smoke exposure. PAST SURGICAL HISTORY: 1. Appendectomy. 2. . 3. Bilateral tubal ligation. MEDICATIONS: 1. Prednisone 10 mg daily. 2. Potassium 10 mEq b.i.d. 3. Multivitamin 1 tablet daily. 4. Lasix 40 mg b.i.d. 5. Trelegy 1 inhaled daily. 6. Albuterol inhalers 2.5 mg inhaled q.i.d. 7. ProAir inhalers as needed for shortness of breath. ALLERGIES: CODEINE AND TEMAZEPAM. FAMILY HISTORY: Positive for Alzheimer's, COPD and lung cancer. SOCIAL HISTORY: The patients i recently . Her 3 months previously. 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 She does have a significant history of smoking tobacco, quit 8 years previously. Denies any alcohol or illicit drug use. REVIEW OF SYSTEMS: CONSTITUTIONAL: Positive for fever, malaise, generalized weakness and some mild confusion. HEENT: Denies headaches, vision changes, sore throat, nasal congestion or ear aches. RESPIRATORY: As noted in History of Present Illness. Increased shortness of breath, coughing and wheezing, but is O2 dependent. CARDIOVASCULAR: Denies any chest pain, palpitations or syncopal episodes. GASTROINTESTINAL: Denies any nausea, vomiting, diarrhea, constipation or abdominal pain. GENITOURINARY: Denies any dysuria, hematuria, polyuria. MUSCULOSKELETAL: General malaise and no joint swelling. BACK: Without any CVA or vertebral tenderness. RECTAL: Exam is deferred. SKIN: No reported lesions, rashes, moles or unexplained changes. NEUROLOGIC: As noted in History of Present Illness, some mild confusion. Denies any ataxia, seizures or other focal deficits. HEMATOLOGIC: Denies any unexplained bleeding, bruising or transfusion reaction. PHYSICAL EXAMINATION: VITAL SIGNS: On initial presentation to the Emergency Room, temperature 102.5, blood pressure 123/77, was tachycardic at 114 with respirations of 30 showing 90% saturation on 2 liters nasal cannula. GENERAL: The patient looks to be resting comfortably and is in no obvious distress. She does look frail and ill-appearing. HEENT: Tympanic membranes clear bilaterally. She has bilateral decreased hearing which is chronic, not currently wearing hearing aids. NECK: Supple, nontender with full range of motion. No jugular venous distention noted. CHEST: Lung sounds are just diminished throughout. No obvious rhonchi, wheezes or rales. CARDIOVASCULAR: Regular rate and rhythm without any appreciable murmurs, gallops, or rubs. Noted tachycardic on the monitor. GASTROINTESTINAL: Abdomen was obese but soft, non-tender. Positive bowel sounds. BACK: Without any CVA or vertebral tenderness. RECTAL: Exam is deferred. EXTREMITIES: Without any cyanosis, clubbing or edema. NEUROLOGIC: She was mildly confused on initial assessment, but seemed to clear up shortly after initiation of treatment. Cranial nerves II-XII are grossly intact. No obvious focal motor deficits. SKIN: Warm, pink and dry. EKG showed sinus tachycardia with some PACs at 118. No obvious ST or T wave changes to indicate acute ischemia or damage. Chest x-ray showed cardiomegaly with some lingular infiltrates and significant changes of COPD. LABORATORY: Rapid COVID test was negative. COVID testing by PCR was pending. Initial white count 21,400, hemoglobin 12.6, hematocrit 39.0. Differential did show a left shift without any obvious bands. Coagulation studies showed initial D-dimer of 3740, PTT was normal. Fibrinogen was elevated at 450. Blood gas analysis showed a pH of 7.447 with a pO2 of 39, pCO2 of 49, bicarb was normal at 33, base excess was normal at 8.2. Chemistry showed normal electrolytes with an elevated CO2 of 32, BUN 19, creatinine 1.50. Liver functions were all within normal limits except for a slightly elevated bilirubin at 1.4. Troponin was 0.03. Ferritin was 308. BNP was elevated at 273. C reactive protein at 12.3, TSH was normal. Urinalysis was within normal limits. MICROBIOLOGY: Blood cultures were collected prior to administration of antibiotics and Influenza testing for A and B by PCR was negative. RADIOLOGY: Chest x-ray per radiology interpretation showed lingular infiltrates. ASSESSMENT: 1. Left sided pneumonia. 2. Sepsis secondary to #1. 3. Chronic obstructive pulmonary disease exacerbation secondary to #1 with hypoxemia and hypoxic respiratory failure. 4. Leukocytosis secondary to #1. 5. History of congestive heart failure with no current echocardiogram available at admission with no signs of exacerbation, but with an elevated BNP. PLAN: The patient is going to be admitted for initiation of treatment of underlying left sided pneumonia with associated sepsis. She was started on antibiotics initially with Rocephin and azithromycin. She was given a dose of Cefepime in the Emergency Room. She will be continued on antibiotics with Rocephin and azithromycin. She will be on Lovenox for possible PE pending further workup with possible CT when she becomes a little bit more stable and creatinine function is showing some improvement and further rule out of possible PE. She did test negative for COVID, but was given a dose of Remdesivir in the Emergency Room. Given her labs are significantly elevated, she will be placed in observation with concern for a possible false negative. Her PCR for COVID is pending. Will follow the results of that. She will be on aggressive pulmonary hygiene with Albuterol handheld inhaler. She will be started back on her medications. She was started back on Remdesivir and Decadron. I would anticipate her length of stay to be at least 2 to 3 days. She is O2 dependent. Will monitor her response to treatment, this to keep her O2 saturations above 92% on oxygen as she normally stays at home. Until we can transition to outpatient management will continue to monitor and treat as needed. #[id number] [facility]
[2020-06-08] MEDS ORDERED: ALBUTEROL INHALER 64 PUFF/8GM INH PRN (00:14)
[2020-06-08] MEDS ORDERED: ACETAMINOPHEN 325 MG TAB PO PRN (00:15)
[2020-06-08] MEDS ORDERED: SODIUM CHLORIDE 0.9% (FLUSH) 10 ML SYG IV PRN (00:15)
[2020-06-08] MEDS ORDERED: ONDANSETRON INJ 4 MG/2 ML VIAL IV PRN (00:15)
[2020-06-08] MEDS ORDERED: IV SET AND CAP CHANGE INJ INJ SCH (00:30)
[2020-06-08] MEDS: PANTOPRAZOLE SODIUM IV 40 MG VIAL IV SCH (06:23)
[2020-06-08] MEDS ORDERED: AZITHROMYCIN IV 500 MG VIAL IVPB ONE (07:13)
[2020-06-08] MEDS ORDERED: ENOXAPARIN SODIUM 40 MG/0.4 ML SYG SUBCU ONE (07:13)
[2020-06-08] MEDS ORDERED: predniSONE 10 MG TAB ONE (07:13)
[2020-06-08] MEDS ORDERED: SODIUM CHL 0.9% 50ML MIN-BAG+ 50 ML IVPB ONE (07:14)
[2020-06-08] MEDS ORDERED: cefTRIAXone SODIUM 1 GM VIAL ONE (07:14)
[2020-06-08] MEDS ORDERED: REMDESIVIR IV 100 MG VIAL ONE (07:14)
[2020-06-08] MEDS ORDERED: SODIUM CHLORIDE 0.9% 250ML 500 ML ONE (07:14)
[2020-06-08] MEDS: DEXAMETHASONE INJ 10 MG/ML VIAL IV SCH (08:01)
[2020-06-08] MEDS: guaiFENesin ER TAB 600 MG TAB PO SCH ×2 (08:01→20:39)
[2020-06-08] MEDS: FUROSEMIDE 40 MG TAB PO SCH ×2 (08:01→20:29)
[2020-06-08] MEDS: predniSONE 10 MG TAB PO SCH (08:01)
[2020-06-08] MEDS: ENOXAPARIN SODIUM 40 MG/0.4 ML SYG SUBCU SCH (08:01)
[2020-06-08] MEDS: BIFIDOBACTERIUM INFANTIS 4 MG CAP PO SCH ×2 (08:01→20:28)
[2020-06-08] MEDS: POTASSIUM CHLORIDE 10 MEQ TAB PO SCH ×2 (08:01→20:29)
[2020-06-08] MEDS: cefTRIAXone SODIUM 1 GM in SODIUM CHL 0.9% 50ML MIN-BAG+ 50 ML IVPB SCH (08:01)
[2020-06-08] MEDS: SODIUM CHLORIDE 0.9% (FLUSH) 10 ML SYG IV SCH ×2 (08:08→20:39)
[2020-06-08] MEDS: AZITHROMYCIN IV 500 MG in SODIUM CHLORIDE 0.9% 250ML 250 ML IVPB SCH (09:03)
[2020-06-08] MEDS: ALBUTEROL INHALER 64 PUFF/8GM INH SCH ×4 (10:37→20:45)
[2020-06-08] MEDS: NON-FORMULARY MEDICATION 1 EA MIS (Fluticasone-Umeclidinium-Vilan [Trelegy Ellipta 100-62. IN SCH (10:45)
[2020-06-08] MEDS: REMDESIVIR 100 MG in SODIUM CHLORIDE 0.9% 250ML 250 ML IVPB SCH (12:17)
--- NOTE | 2020-06-08 18:39 | PN ---
SUPERVISING PHYSICIAN: Phillip Tracy M.D. DATE: 06/08/20 SUBJECTIVE: The patient is alert this morning. She does not seem to be confused at all. She is not in any obvious distress. Does not have any major complaints. Her test on COVID by PCR is still pending. She remains in airborne isolation. OBJECTIVE: VITAL SIGNS: Temperature 97.7, pulse 96, blood pressure 129/75, respirations 15, satting 96% on 3 liters nasal cannula. GENERAL: The patient is resting comfortably. Does not appear to be in any distress. She is alert. CHEST: Lung sounds are just diminished towards the bases. I am not hearing any obvious rhonchi, wheezing or rales. HEART: Regular rate and rhythm with no appreciable murmurs, gallops, or rubs. ABDOMEN: Obese but soft, non-tender. Positive bowel sounds. EXTREMITIES: Without edema. NEUROLOGIC: She is alert and oriented times three. LABORATORY: White count this morning is down to 18,400, hemoglobin 11.7, hematocrit 35.8, platelet count 154,000. Differentia shows a continued left shift, no bands. Coagulation study shows D-dimer is down to 1740. Chemistries are showing normal electrolytes. CO2 is down to 30, BUN 25, creatinine 1.34. Liver functions are all within normal limits. C reactive protein is elevated at 21.1. MICROBIOLOGY: Blood cultures remain negative. RADIOLOGY: No repeat chest x-ray this morning. ASSESSMENT: 1. Left sided pneumonia. 2. Sepsis secondary to #1. 3. Chronic obstructive pulmonary disease exacerbation secondary to #1 with hypoxemia and hypoxic respiratory failure. 4. Leukocytosis secondary to #1. 5. History of congestive heart failure with no current echocardiogram available at admission with no signs of exacerbation, but with an elevated BNP. PLAN: Will continue current plan of care for left sided pneumonia with concern for possible COVID pneumonitis and developing pneumonia. She is on Remdesivir, Rocephin, azithromycin, Decadron, Protonix and 1 mg per kg of Lovenox. Will repeat her labs in the morning. If her chemistries are still showing improvement in her creatinine, will take consideration of possibly doing a CT of her chest to help in further management of her elevated D-dimer, although it may just be associated with her underlying pneumonia. If she does show some improvement clinically, I would anticipate at least another 24 to 48 hours with close monitoring. Until we can transition to outpatient management will continue to monitor and treat as needed. [facility][id number] [facility]
[2020-06-08] MEDS ORDERED: ENOXAPARIN SODIUM 100 MG/ML SYG SUBCU ONE (18:58)
[2020-06-09] MEDS ORDERED: PANTOPRAZOLE SODIUM IV 40 MG VIAL ONE (04:33)
[2020-06-09] MEDS: PANTOPRAZOLE SODIUM IV 40 MG VIAL IV SCH (06:11)
[2020-06-09] MEDS ORDERED: DEXAMETHASONE INJ 10 MG/ML VIAL ONE (08:00)
[2020-06-09] MEDS ORDERED: POTASSIUM CHLORIDE 10 MEQ TAB PO ONE ×2 (08:00→19:27)
[2020-06-09] MEDS ORDERED: BIFIDOBACTERIUM INFANTIS 4 MG CAP ONE ×2 (08:00→19:26)
[2020-06-09] MEDS ORDERED: FUROSEMIDE 40 MG TAB ONE (08:00)
[2020-06-09] MEDS ORDERED: AZITHROMYCIN IV 500 MG VIAL IVPB ONE (08:00)
[2020-06-09] MEDS ORDERED: guaiFENesin ER TAB 600 MG TAB ONE ×2 (08:00→19:26)
[2020-06-09] MEDS ORDERED: predniSONE 10 MG TAB ONE (08:00)
[2020-06-09] MEDS ORDERED: ENOXAPARIN SODIUM 40 MG/0.4 ML SYG SUBCU ONE (08:01)
[2020-06-09] MEDS ORDERED: SODIUM CHL 0.9% 50ML MIN-BAG+ 50 ML IVPB ONE (08:01)
[2020-06-09] MEDS ORDERED: SODIUM CHLORIDE 0.9% 250ML 250 ML ONE ×2 (08:01→12:56)
[2020-06-09] MEDS ORDERED: cefTRIAXone SODIUM 1 GM VIAL ONE (08:01)
[2020-06-09] MEDS: DEXAMETHASONE INJ 10 MG/ML VIAL IV SCH (08:40)
[2020-06-09] MEDS: ENOXAPARIN SODIUM 40 MG/0.4 ML SYG SUBCU SCH (08:40)
[2020-06-09] MEDS: guaiFENesin ER TAB 600 MG TAB PO SCH ×2 (08:40→20:58)
[2020-06-09] MEDS: BIFIDOBACTERIUM INFANTIS 4 MG CAP PO SCH ×2 (08:40→20:58)
[2020-06-09] MEDS: POTASSIUM CHLORIDE 10 MEQ TAB PO SCH ×2 (08:41→20:58)
[2020-06-09] MEDS: FUROSEMIDE 40 MG TAB PO SCH (08:41)
[2020-06-09] MEDS: SODIUM CHLORIDE 0.9% (FLUSH) 10 ML SYG IV SCH ×2 (08:42→20:59)
[2020-06-09] MEDS: AZITHROMYCIN IV 500 MG in SODIUM CHLORIDE 0.9% 250ML 250 ML IVPB SCH (08:42)
[2020-06-09] MEDS: predniSONE 10 MG TAB PO SCH (08:42)
[2020-06-09] MEDS: cefTRIAXone SODIUM 1 GM in SODIUM CHL 0.9% 50ML MIN-BAG+ 50 ML IVPB SCH (08:42)
[2020-06-09] MEDS: ALBUTEROL INHALER 64 PUFF/8GM INH SCH ×3 (08:56→17:00)
[2020-06-09] MEDS: NON-FORMULARY MEDICATION 1 EA MIS (Fluticasone-Umeclidinium-Vilan [Trelegy Ellipta 100-62. IN SCH (09:00)
[2020-06-09] MEDS ORDERED: REMDESIVIR IV 100 MG VIAL ONE (12:56)
[2020-06-09] MEDS: REMDESIVIR 100 MG in SODIUM CHLORIDE 0.9% 250ML 250 ML IVPB SCH (13:11)
--- NOTE | 2020-06-09 15:26 | RAD ---
EXAMINATION: Chest,1 View. HISTORY: 79 years Female. PNA. . . TECHNIQUE: XR CHEST 1 VIEW COMPARISON: 06/07/2020 FINDINGS: Limited examination due to prominent soft tissue attenuation. Right lung remains relatively clear. Lingular infiltrate slightly smaller, again consisting of groundglass and interstitial opacities with slight central consolidation. The cardiac silhouette size is slightly enlarged. No pleural effusion noted. No radiographically visible pneumothorax. No acute displaced fracture in the visualized chest. IMPRESSION: Slight cardiomegaly. Examination limited by body habitus. Interval decrease of left lingular may reflect improvement of edema and/or atelectasis. Differential includes improvement of viral or bacterial pneumonia. Electronically signed by: Fabián Small MD 06/09/2020 3:24 PM CHEMICAL DEPENDENCY PROFESSIONAL
[2020-06-09] MEDS ORDERED: SODIUM CHLORIDE 0.9% 500ML 500 ML IVS ONE (17:08)
[2020-06-09] MEDS ORDERED: SODIUM CHLORIDE 0.9% 1000ML 1,000 ML IVS ONE (17:09)
--- NOTE | 2020-06-09 19:02 | PN ---
SUPERVISING PHYSICIAN: Phillip Tracy M.D. DATE: 06/09/20 SUBJECTIVE: The patient notes that she just does not feel well today. She has not really had any significant shortness of breath, just overall does not feel well. Feels exhausted. She was tested on extensive respiratory panel and was told today that COVID, Influenza and all other bacterial and viral targets as tested. She is maintaining O2 saturations normally on 3 liters which is what she does at home. OBJECTIVE: VITAL SIGNS: Temperature 98, pulse 99, blood pressure 127/84, respirations 16, showing 98% on nasal cannula at 3 liters. GENERAL: The patient looks to be resting comfortably in no acute distress. CHEST: Lung sounds are just diminished towards the bases, otherwise fairly clear. No obvious rhonchi, wheezing or rales. HEART: Regular rate and rhythm. ABDOMEN: Soft, obese, non-tender. Positive bowel sounds. EXTREMITIES: Without edema. NEUROLOGIC: She is alert and oriented times three. LABORATORY: White count is down to 15,700 today. Hemoglobin and hematocrit showing to be stable at 11.7 and 36.1 respectively with platelet count 200,000. Differential shows a left shift. Coagulation studies showed D-dimer is up to 2040 today with chemistry showing normal electrolytes. Creatinine 1.47 with BUN elevated at 37, calcium 8.6, magnesium normal at 1.9. Liver functions are all within normal limits. C reactive protein is improving and is down to 17.1. MICROBIOLOGY: Repeat respiratory panel was negative for COVID, Influenza A and B and all other bacterial and viral targets as tested. Blood cultures remain negative at 24 hours. Sputum culture is pending. RADIOLOGY: Repeat chest x-ray this morning per radiology interpretation showed slight cardiomegaly with examination being limited by body habitus. There was interval decreased left lingular which could reflect improvement of edema and/or atelectasis. ASSESSMENT: 1. Left sided pneumonia with associated sepsis. 2. Sepsis secondary to #1, improving with treatment. 3. Chronic obstructive pulmonary disease exacerbation, acute secondary to #1 with the patient being on chronic O2. 4. History of congestive heart failure with no current echocardiogram available at time of admission with the patient showing no signs of exacerbation, but showing an elevated BNP. 5. Acute renal insufficiency, likely prerenal azotemia showing a stable potassium. PLAN: Will continue with current treatment with developing what looks like to be community acquired pneumonia. She did test negative both for COVID twice. Will go ahead and stop her Remdesivir and continue with Rocephin and azithromycin for now treatment of her COPD exacerbation. Since she seems to be doing well on Decadron, will continue with this as well. She does remain on Protonix and Lovenox 1 mg per kg due to the elevated D-dimer. Will try to see if we can get a CT of her chest in the morning, if her creatinine improves, to further rule out a possible DVT. Will go ahead and give her encouragement, p.o. fluids as well as a few boluses of IV fluids to see if we can correct her underlying renal function. Hopefully will be able to discharge her within the next 1 to 2 days. Until then continue to monitor and treat as needed. #[id number] [facility]
[2020-06-09] MEDS ORDERED: ENOXAPARIN SODIUM 100 MG/ML SYG SUBCU ONE (19:26)
[2020-06-10] MEDS ORDERED: PANTOPRAZOLE SODIUM IV 40 MG VIAL ONE (03:16)
[2020-06-10] MEDS: PANTOPRAZOLE SODIUM IV 40 MG VIAL IV SCH (06:09)
[2020-06-10] MEDS: ALBUTEROL INHALER 64 PUFF/8GM INH SCH (09:15)
[2020-06-10] MEDS ORDERED: DEXAMETHASONE INJ 10 MG/ML VIAL ONE (09:56)
[2020-06-10] MEDS ORDERED: ENOXAPARIN SODIUM 100 MG/ML SYG SUBCU ONE (09:56)
[2020-06-10] MEDS ORDERED: SODIUM CHLORIDE 0.9% 250ML 250 ML ONE (09:57)
[2020-06-10] MEDS ORDERED: BIFIDOBACTERIUM INFANTIS 4 MG CAP ONE (09:57)
[2020-06-10] MEDS ORDERED: guaiFENesin ER TAB 600 MG TAB ONE (09:57)
[2020-06-10] MEDS ORDERED: POTASSIUM CHLORIDE 10 MEQ TAB PO ONE (09:57)
[2020-06-10] MEDS ORDERED: AZITHROMYCIN IV 500 MG VIAL IVPB ONE (09:57)
[2020-06-10] MEDS ORDERED: cefTRIAXone SODIUM 1 GM VIAL ONE (09:58)
[2020-06-10] MEDS ORDERED: SODIUM CHL 0.9% 50ML MIN-BAG+ 50 ML IVPB ONE (09:58)
[2020-06-10] MEDS: BIFIDOBACTERIUM INFANTIS 4 MG CAP PO SCH (10:06)
[2020-06-10] MEDS: DEXAMETHASONE INJ 10 MG/ML VIAL IV SCH (10:07)
[2020-06-10] MEDS: guaiFENesin ER TAB 600 MG TAB PO SCH (10:08)
[2020-06-10] MEDS: POTASSIUM CHLORIDE 10 MEQ TAB PO SCH (10:08)
[2020-06-10] MEDS: cefTRIAXone SODIUM 1 GM in SODIUM CHL 0.9% 50ML MIN-BAG+ 50 ML IVPB SCH (10:09)
[2020-06-10] MEDS: NON-FORMULARY MEDICATION 1 EA MIS (Fluticasone-Umeclidinium-Vilan [Trelegy Ellipta 100-62. IN SCH (10:14)
[2020-06-10] MEDS: SODIUM CHLORIDE 0.9% (FLUSH) 10 ML SYG IV SCH (10:14)
[2020-06-10] MEDS: AZITHROMYCIN IV 500 MG in SODIUM CHLORIDE 0.9% 250ML 250 ML IVPB SCH (10:14)
[2020-06-10] MEDS ORDERED: AZITHROMYCIN 250 MG TAB PO ONE (11:06)
[2020-06-10 12:03] VITALS: BP 142/78; TEMP 97.9; O2SAT 97
[2020-06-10] MEDS ORDERED: ENOXAPARIN SODIUM 100 MG/ML SYG SUBCU SCH (21:00)
--- NOTE | 2020-06-19 21:17 | DS ---
SUPERVISING PHYSICIAN: Jack Evans M.D. ADMISSION DIAGNOSIS: 1. Left sided pneumonia. 2. Sepsis secondary to #1. 3. Chronic obstructive pulmonary disease exacerbation secondary to #1 with hypoxemia and hypoxic respiratory failure. 4. Leukocytosis secondary to #1. 5. History of congestive heart failure with no current echocardiogram available at admission with no signs of exacerbation, but with an elevated BNP. DISCHARGE DIAGNOSIS: 1. Left sided pneumonia with associated sepsis. 2. Sepsis secondary to #1, improving with treatment. 3. Chronic obstructive pulmonary disease exacerbation, acute secondary to #1 with the patient being on chronic O2. 4. History of congestive heart failure with no current echocardiogram available at time of admission with the patient showing no signs of exacerbation, but showing an elevated BNP. 5. Acute renal insufficiency, likely prerenal azotemia showing a stable potassium. REASON FOR HOSPITALIZATION: Ms. Bonnie Saeed is a 79 year-old female patient that came to the Emergency Room last night complaining of some increasing shortness of breath with fever and associated confusion over the last 24 hours. She does have a longstanding history of chronic obstructive pulmonary disease and is actually O2 dependent. She has been in and out of the hospital several times in the last year with pneumonia. She endorses that she has had increasing cough with shortness of breath on exertion over the last several days. She was noted to be significantly confused initially on admission which did not improve significantly with oxygen. No obvious focal motor deficits are noted. Further workup showed labs that she had a leukocytosis of 21,400 with a left shift and blood gas analysis did show a pH of 7.447 but her pO2 was 39 with a pCO2 of 49 and that was on oxygen via nasal cannula. Chemistries showed again elevated CO2 with a normal anion gap with a creatinine of 1.50, baseline creatinine is around 1.0. Liver functions were all within normal limits. BNP was a little elevated at 273 as well as C reactive protein at 12.3. Nasal swab for COVID was negative as well as Influenza A and B by PCR. Blood cultures were completed. She was started on antibiotics. Chest x-ray showed lingular infiltrate with atelectasis and/or scarring. Initial vital signs on initial presentation to the Emergency Room showed she was febrile with a temperature of 102.5, tachycardic at 114, blood pressure was normal at 123/77 but she was showing saturations of 90% on 2 liters nasal cannula with respirations of 30 initially. After initiation of treatment, she was showing improvement up to 96% on 3 liters nasal cannula. She was showing to be stable and now is going to be admitted for treatment of underlying left sided pneumonia. She was admitted in stable condition. LABORATORY STUDIES: White count on discharge was 11,800, hemoglobin 11.5, hematocrit 35.2, platelet count 201,000. Differential did show a left shift. Coagulation studies showed a D-dimer at 2040. Chemistries on discharge showed normal electrolytes, creatinine was down to 1.24, C reactive protein was 11.6. Urinalysis was all within normal limits. MICROBIOLOGY: Sputum culture final report just showed abundant normal respiratory hayley. She had a respiratory panel that was negative for all bacterial and viral targets as tested, including COVID and Influenza. Blood cultures remain negative at 5 days. RADIOLOGY: Final chest x-ray shows slight cardiomegaly with interval decrease of left lingular which may reflect improvement of edema and/or atelectasis with differential includes improvement of viral or bacterial pneumonia. HOSPITAL COURSE: Ms. Bonnie Saeed was admitted for treatment of left sided pneumonia. She was started on medications including Albuterol, Cefepime and azithromycin. She was on Lovenox given her elevated D-dimer 1 mg per kg. She was also given several doses of Remdesivir with concern for possible fever and clinical assessment to indicate a possible previous COVID infection, although her respiratory panel was negative. She did show good improvement on day of discharge and was found clinically stable enough to discharge home to continue outpatient management. Vital signs showed that she had a temperature of 97.9, pulse 80, blood pressure 142/78, respirations 18, satting 97% on 2.5 liters nasal cannula which she wears chronically at home. PLAN: Ms. Bonnie Saeed was discharged on 06/10/20 with instructions to followup with Dr. Brooks on 06/11/20. She was to take medications as directed which included prescriptions for: 1. Align 4 mg twice daily while on the antibiotics 2. Eliquis 5 mg, #60. No refills. 3. Cefdinir 300 mg twice daily, #12. 4. Prednisone tapering dose 10 mg tablets. She was to resume her regular diet. Increase activity as tolerated. She was given a referral to Pulmonary Rehab as well. This will need to be followed-up in the followup appointments. Condition on discharge was stable and improved. DISPOSITION: The patient was discharged home. #[id number] [facility]
== END 2020-06-10 12:55 | disposition home or self-care (01) | DRG 871 ==
LOC: ER 17:36 → MS 22:32 → OBSVTOIN 22:32 → INTOOBSV 22:32 → UNDOADMOB 22:32 → INTOOBSV 22:33 → OBSVTOIN 22:33 → MS 22:33 → OBSVTOIN 22:36 → UNDODISIN 06-10 12:55
PROVIDERS: ADMIT Nurse Practitioner Acute Care; ATTEND Nurse Practitioner Family
DX: A41.9 Sepsis, unspecified organism (principal); J18.9 Pneumonia, unspecified organism; J44.1 Chronic obstructive pulmonary disease with (acute) exacerbation; J44.0 Chronic obstructive pulmonary disease with (acute) lower respiratory infection; I50.9 Heart failure, unspecified; Z99.81 Dependence on supplemental oxygen; Z87.891 Personal history of nicotine dependence; Z20.822 Contact with and (suspected) exposure to COVID-19; Z79.52 Long term (current) use of systemic steroids